=== PATIENT | female | born 1990 | race Caucasian/White ===

== ENCOUNTER 2017-11-18 07:28 | Emergency (ER) | payer MEDICAID, SELFPAY ==
[2017-11-18 07:33] VITALS: BP 107/73; PULSE 83; RESP 18; TEMP 36.9; O2SAT 97
--- NOTE | 2017-11-18 08:24 | ED.GENADUL_ITS ---
Disposition Clinical Impression: Abscess of right breast Disposition: HOME Instructions: Abscess (ED) Additional Instructions: Please apply warm compresses to your right breast abscess 4-5 times a day for the next 1 week. Follow-up with surgery tomorrow at 9:30a with Dr. Angel. Please take antibiotics as prescribed. Please follow-up with your primary care physician. Return to the emergency department immediately for any worsening or new concerning symptoms. Prescriptions: Cephalexin [Keflex] 500 mg PO QID #40 tab Sulfameth/Trimeth Ds [Bactrim Ds Tablet] 1 each PO BID #20 tab Referrals: Ale Gutierrez [Primary Care Provider] - Raghavendra Siddiqui DO [ [facility] STAFF PHYSICIAN] - Medical Decision Making - Medical Decision Making 26-year-old female here with recurrent breast abscess right breast, now draining. Afebrile not septic appearing. Ultrasound of the right breast was obtained and shows discrete 1 cm fluid collection with no apparent loculations. I called and spoke with Dr. Escalera who recommends no further acute intervention given currently draining but will see the patient tomorrow in clinic at 930. Plan to start bactrim and keflex. History of Present Illness - General Chief complaint: RashLesion Stated complaint: ABSCESS/RECHECK Time Seen by Provider: 11/18/17 07:30 Source: patient, RN notes reviewed Mode of arrival: ambulatory Limitations: no limitations - History of Present Illness Initial comments: 26-year-old female with history of breast abscess in the past treated with incision and drainage and antibiotics, presents with recurrent breast abscess. Patient notes swelling and pain worsening since yesterday, localized to right breast. Pain is moderate to severe and worse on palpation. Area is red and inflamed. No drainage. No associated fever. Patient has history of remote IV drug use, last use 6 months ago. - Related Data Methadone Liquid [Dolophine Liquid] 122 mg PO DAILY #0 07/31/17 Cephalexin [Keflex] 500 mg PO QID #40 tab 11/18/17 Sulfameth/Trimeth Ds [Bactrim Ds Tablet] 1 each PO BID #20 tab 11/18/17 Allergies Allergy/AdvReac Type Severity Reaction Status Date / Time No Known Allergies Allergy Unverified 11/18/17 07:37 Review of Systems Constitutional: denies: chills, fever Skin: as per HPI Past Medical History - Past Medical History Medical history: no medical history Positive history of IV drug use. Patient is now on methadone. - Social History Alcohol use: none Drug use: marijuana, IVDA (Heroin-currently on methadone) General Exam - General Limitations: no limitations General appearance: alert, in no apparent distress - Eye Eye exam: Absent: scleral icterus, conjunctival injection - ENT ENT exam: Present: mucous membranes moist - Respiratory Respiratory exam: Present: normal lung sounds bilaterally. Absent: respiratory distress, wheezes, rales, rhonchi - Cardiovascular Cardiovascular Exam: Present: regular rate, normal rhythm, normal heart sounds - Neurological Exam Neurological exam: Present: alert. Absent: altered - Psychiatric Psychiatric exam: Present: normal affect - Skin Skin exam: Present: warm, dry, other (Right breast with abscess left upper periareolar at 2:00 with redness and fluctuance, no drainage, nipple appears normal with no drainage) Course Vital Signs - 24 hr 08/28/18 07:33 Temperature 36.9 C Pulse 83 Respiratory 18 Rate Blood Pressure 107/73 Pulse Oximetry 97
--- NOTE | 2017-11-18 08:31 | DI.REPORT_ITS ---
SYMPTOM/DIAGNOSIS: ABSCESS RIGHT BREAST ULTRASOUND: The upper outer quadrant of the right breast was evaluated sonographically. There is a small subcutaneous fluid collection measuring approximately 1 cm. in maximum diameter suspicious for an abscess given the patient's clinical history. There does appear to be thickening of the subcutaneous soft tissues in this region. IMPRESSION: 1 cm. subcutaneous fluid collection at the 1 o'clock position of the right breast corresponding to the area of breast drainage suspicious for a right breast abscess. The findings were discussed with Dr Danis Muhammad of the ER on the date of the examination.
--- NOTE | 2017-11-18 09:25 | NUR.NOTE ---
pt states that she will not go to F/U appt with surgeon tomorrow am and requested phone number to schedule her own appt which she was given. also reports that she probably can't get her antbx until friday- explained the importance of starting antibx immediately - pt became agitated and reports that she will try to wait for care management to come to assist her with obtaining her medications. Nursing Note:
--- NOTE | 2017-11-18 10:39 | PDOC.ERCMPRO ---
Care Management Progress Note 11/18-Estefania presents to the ED today for cellulitis in her breast. Dr. Troy Muhammad has ordered antibiotics. Estefania states she can not afford to pay for the antibiotics because she does not get paid till Friday. Met with Estefania to discuss if any family members could help her with the Medicaid copays, $2-3. Estefania stated no. Discussed with Estefania that I could get the antibiotics paid for at [facility] in [facility]. Estefania stated that could not happen because she uses [facility] and has no way to get there. Explained that we could send the scripts to [facility] and that the copays would be taken care of. Asked Estefania how she was getting home from the ED and she stated that a friend was coming to pick her up. Asked if the friend could take her to [facility] to get the prescriptions but she said, No, my friend doesn't have a license and I am not asking her to drive into town! Explained to Estefania that this was all we had to offer for assistance. 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 Dr. Tiffanie Muhammad and Lauren MOREIRA aware of the above.
--- NOTE | 2017-11-18 10:43 | CMPROGNOTE_ITS ---
Care Management Progress Note 11/18-Estefania presents to the ED today for cellulitis in her breast. Dr. Troy Muhammad has ordered antibiotics. Estefania states she can not afford to pay for the antibiotics because she does not get paid till Friday. Met with Estefania to discuss if any family members could help her with the Medicaid copays, $2-3. Estefania stated no. Discussed with Estefania that I could get the antibiotics paid for at [facility] in [facility]. Estefania stated that could not happen because she uses [facility] and has no way to get there. Explained that we could send the scripts to [facility] and that the copays would be taken care of. Asked Estefania how she was getting home from the ED and she stated that a friend was coming to pick her up. Asked if the friend could take her to [facility] to get the prescriptions but she said, No, my friend doesn't have a license and I am not asking her to drive into town! Explained to Estefania that this was all we had to offer for assistance. 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 Dr. Tiffanie Muhammad and Lauren MOREIRA aware of the above.
== END 2017-11-18 09:34 | disposition home or self-care (01) ==
PROVIDERS: Emergency Provider Student in an Organized Health Care Education/Training Program; PCP Nurse Practitioner Family
DX: N61.1 Abscess of the breast and nipple (principal)
CPT/HCPCS: 76642; 99284; 87070; 87205

== ENCOUNTER 2018-07-26 10:09 | Emergency (ER) | payer MEDICAID, SELFPAY ==
--- NOTE | 2018-07-26 10:25 | NUR.NOTE ---
pt has two primary complaints 1 the fell 5 days ago on her right bryson 2 days later pain notably increases as well as redness whole calf in now as stated by pt tight, red and painful to touch. secondary complain pt has infection on right breast for over a year pt states that she was sopossed to be on antibiotics however does not have a PCP and has no way to get the antibiotics she thins its a form of staff but i know its not MRSA as it has nessa tested several times
[2018-07-26 10:30] VITALS: BP 146/80; PULSE 77; RESP 18; TEMP 36.8; O2SAT 94
--- NOTE | 2018-07-26 11:03 | DI.RAD_ITS ---
SYMPTOM/DIAGNOSIS: TRAUMA, PAIN LEFT LEG: Three views were obtained. No fracture is seen.
--- NOTE | 2018-07-26 11:09 | ED.GENADUL_ITS ---
Discharge Plan Disposition Patient Disposition: HOME Condition: Fair Discharge Details Chief Complaint: Orthopedic Clinical Impression: Contusion of left lower arm, Open wound of right breast Primary Care Provider: Ale Gutierrez ED Provider: Nathalia Hilliard Home Meds and New Rx's Prescriptions: New sulfamethoxazole-trimethoprim [Bactrim DS] 800-160 mg tablet 2 tab PO BID Qty: 20 RF: 0 Continued methadone 10 MG/ML concentrate 122 mg PO DAILY Qty: 0 RF: 0 Discharge Instructions Instructions: Chronic Wound Care (ED), Contusion in Adults (ED), Abscess (ED) Additional Instructions: Encourage rest, ice, elevation of your left lower extremity. Please continue with Dionicio wrap to help with swelling. Tylenol and ibuprofen as needed for discomfort. In regard to the right breast wound, please take the antibiotics as prescribed. Please follow-up with general surgery, you may call tomorrow to schedule appointment. If you develop fever/chills, spreading of the redness, increased pain or other new/worsening symptoms please seek care urgently once again Referrals: Ale Gutierrez [Primary Care Provider] - Medical Decision Making Patient is a 27-year-old female presenting today with chief complaint of left lower extremity pain as well as right breast infection. She reports that she fell yesterday and that her right leg struck against her left leg during the fall. Since that time she had pain on the anterior medial aspect of the calf. No posterior pain. Has noted the skin to be swollen and slightly discolored. She denies any fevers or chills. No chest pain or shortness of breath. Patient has been ambulating with an antalgic gait since the fall. She has swelling and ecchymosis, no palpable cord, negative Homans, pain is alng the anterior aspect of the LE. Given level of discomfort, will obtain XR to evaluate for any bony abnoramlity. Denies other injury the time. Regarding the right breast, she has had an open wound for the past year after putting herself with a pipe and she put on her shirt. States that the area has been intermittently erythematous and draining. States that it has been status quo for the past month. Was evaluated by a physician in long-term, patient was recently incarcerated, who advised antibiotics. She reports she has not been on antibiotics for the past month. She denies any fevers or chills. Has noted a circumference of the erythematous area around chronic wound. Patient was seen here last fall for this wound and was diagnosed with a breast abscess on ultrasound. Plan to treat with antibiotics, with the chronicity of the wound, I am concerned for possible fistula formation, will refer to general surgeon. She will call tomorrow to schedule appointment. Tib/fib xr reviewed by radiologist: FINDINGS: Bones/joints: There is no evidence of acute fracture. There is no evidence of malalignment or dislocation. Old avulsion fracture off navicular. Soft tissues: Normal. IMPRESSION: 1. There is no evidence of acute fracture. 2. There is no evidence of malalignment or dislocation Discussed findings with the patient and her significant other. Encourage rest, ice, elevation. Tylenol and ibuprofen as needed for discomfort. Patient will be fitted with an Dionicio wrap to help with swelling. In regard to the right breast chronic wound, plan to treat with Keflex for surrounding erythema and increased pain. However, I feel patient needs assessment and treatment of general surgery. I placed her on list for referral advised that she call in the morning to schedule appointment. We discussed new/worsening symptoms of both breast and LE when to seek care urgently once again. All her questions and concerns were addressed and she is in agreement with this plan. Also advised f/u with PCP in the next two weeks for reevaluation of LLE. HPI General Mode of arrival: ambulatory . Date/Time Provider Initiated Documentation: 07/26/18 10:50 . Limitations to Documentation: no limitations . Information obtained by: patient, family (significant other) and RN notes reviewed . HPI Narrative: Patient is a 27-year-old female, accompanied by significant other, with chief complaint of LLE pain after fall yesterday. Also has chronic right breast wound that has been intermittently expressing discharge for over a year. She reports that her primary complaint today is that of the left lower extremity, concern for tibia fracture given her discomfort. Ambulating with an antalgic gait. She reports that she has been icing. Related Data Home Medications Medication Instructions Recorded Confirmed methadone 122 mg PO DAILY #0 07/31/17 07/26/18 sulfamethoxazole-trimethoprim 2 tab PO BID #20 tab 07/26/18 [Bactrim DS] Previous Rx's Medication Instructions Recorded methadone 122 mg PO DAILY #0 05/10/18 sulfamethoxazole-trimethoprim 2 tab PO BID #20 tab 07/26/18 [Bactrim DS] Allergies Allergy/AdvReac Type Severity Reaction Status Date / Time No Known Allergies Allergy Unverified 07/26/18 10:31 General Stated Complaint: Orthopedic VASYL: 4 Review of Systems Constitutional Reports as per HPI, Denies chills, Denies fever(s), Denies headache(s) and Denies weakness ENT Denies headache(s) Cardiovascular Reports as per HPI, Denies chest pain, Denies chest pain at rest, Denies dyspnea and Denies dyspnea on exertion Respiratory Reports as per HPI, Denies cough, Denies dyspnea and Denies dyspnea on exertion Musculoskeletal Reports as per HPI and Denies tingling Integumentary/Breasts Reports as per HPI, Reports breast swelling, Reports breast skin changes, Reports breast pain and Reports wounds Neurologic Reports as per HPI, Denies headache(s), Denies tingling, Denies paresthesias and Denies weakness PFS Social History Smoking/Tobacco Use Status: Current every day Tobacco Type: cigarettes Alcohol Intake: current Alcohol Intake frequency: holidays/special occasions only Drug use: Current Sobriety Do you feel safe at home: Yes Do you feel safe in your relationship?: Yes Exam Const General: cooperative, healthy appearing, comfortable, no acute distress, well developed and well groomed Nutritional Appearance: average body habitus and well nourished Orientation: alert and awake Chest Breast palpation: normal palpation of the axillae, no axillary lymphadenopathy and abnormal palpation of the breast (firm area under erythema, serosanginous discharge) Chest/axillae images: 1. area of erythema Resp Effort & Inspection: normal respiratory effort, able to speak in complete sentences and no respiratory distress Auscultation: clear to auscultation bilaterally Cardio Rate: regular rate Rhythm: regular rhythm Heart Sounds: S1 normal and S2 normal Neuro General: alert and awake Cognition: normal cognition Speech: speech normal Gait: antalgic Motor: muscle tone normal throughout Sensory Exam: no sensory deficits noted Extrem General: full ROM, no joint enlargement, no pedal edema, no calf tenderness and abnormal gait Left lower extremity: full ROM, normal capillary refill and no joint enlargement; abnormal to inspection (swelling and discomfort anteriormedial calf) and no edema Upper/lower leg/hip images: 1. area of pain and swelling Psych Appearance: grossly normal and well kempt Mental Status: mental status grossly normal Speech and Movement: speech and movement normal Course Vital Signs Temperature 36.8 C 07/26/18 10:30 Pulse 77 07/26/18 10:30 Respiratory Rate 18 07/26/18 10:30 Blood Pressure 146/80 H 07/26/18 10:30 Pulse Oximetry 94 L 07/26/18 10:30 Temperature 36.8 C 07/26/18 10:30 Temperature Source Skin 07/26/18 10:30 Pulse 77 07/26/18 10:30 Respiratory Rate 18 07/26/18 10:30 Respiratory Effort 07/26/18 10:52 Blood Pressure 146/80 H 07/26/18 10:30 Blood Pressure Position Sitting 07/26/18 10:30 Pulse Oximetry 94 L 07/26/18 10:30 Oxygen Delivery Method Room Air 07/26/18 10:30 Oxygen Flow Rate 0 07/26/18 10:30 Pain Level 5 07/26/18 10:30
--- NOTE | 2018-07-26 12:11 | DI.VRAD_ITS ---
EXAM: XR Left Tibia and Fibula, 2 Views EXAM DATE/TIME: 07/26/2018 11:05 AM CLINICAL HISTORY: 27 years old, female; Signs and symptoms; Other: Trauma; Additional info: Trauma, pain on the medial lower leg per PT TECHNIQUE: Imaging protocol: XR Left tibia and fibula. Views: 2 views COMPARISON: No relevant prior studies available. FINDINGS: Bones/joints: There is no evidence of acute fracture. There is no evidence of malalignment or dislocation. Old avulsion fracture off navicular. Soft tissues: Normal. IMPRESSION: 1. There is no evidence of acute fracture. 2. There is no evidence of malalignment or dislocation. Dictated and Authenticated by: Tracey Gutierres MD. Ordering:THUAN Sloan MD
--- NOTE | 2018-07-26 12:44 | NUR.NOTE ---
Nursing Note: Referral faxed to General Surgery for would on breast for follow up. Sharon Iglesias.
[2018-07-26 17:12] VITALS: BP 146/80; PULSE 77; RESP 18; TEMP 36.8; O2SAT 94
--- NOTE | 2018-07-26 17:29 | NUR.NOTE ---
Nursing Note: Referral faxed to PCP for follow up. Sharon Iglesias.
--- NOTE | 2018-07-27 09:27 | PDOC.ERCMPRO ---
Care Management Progress Note 07/27-Nathalia TAPIA requested assistance with a general surgery f/u in 1-2 weeks for wound right breast. JANIS Herrera, faxed referral to [facility] General Surgery on 07/26.
== END 2018-07-26 12:37 | disposition home or self-care (01) ==
PROVIDERS: Emergency Provider Physician Assistant; PCP Nurse Practitioner Family
DX: S80.12XA Contusion of left lower leg, initial encounter (principal); W18.39XA Other fall on same level, initial encounter; S21.001A Unspecified open wound of right breast, initial encounter; W22.8XXA Striking against or struck by other objects, initial encounter
CPT/HCPCS: 99283; 73590

== ENCOUNTER 2018-08-03 05:41 | Emergency (ER) | payer MEDICAID, SELFPAY ==
[2018-08-03 05:45] VITALS: BP 127/101; PULSE 111; RESP 20; TEMP 37.1; O2SAT 96
--- NOTE | 2018-08-03 06:03 | ED.GENADUL_ITS ---
Discharge Plan Disposition Patient Disposition: HOME Condition: Improving Discharge Details Chief Complaint: Orthopedic Clinical Impression: Cellulitis of right leg Primary Care Provider: Ale Gutierrez ED Provider: Brown Easley Home Meds and New Rx's Prescriptions: New cephalexin 500 mg tablet 500 mg PO TID Qty: 20 RF: 0 ibuprofen 800 mg tablet 800 mg PO TID PRN (Reason: pain) Qty: 20 RF: 0 Continued methadone 10 MG/ML concentrate 122 mg PO DAILY Qty: 0 RF: 0 sulfamethoxazole-trimethoprim [Bactrim DS] 800-160 mg tablet 2 tab PO BID Qty: 20 RF: 0 ibuprofen 200 mg Capsule 600 mg PO PRN PRNRF: 0 Discharge Instructions Instructions: Cellulitis (ED) Additional Instructions: As we discussed you should return today for an ultrasound that I have ordered. You will subsequently be seen in the ER for recheck. Continue your Bactrim and finish the prescription, begin Keflex for 1 week. Ibuprofen as needed for pain. Elevate the leg above the level heart to reduce pain and swelling Medical Decision Making 27-year-old female who was seen on July 26 for right lower extremity discomfort. She had x-ray at that time that was unremarkable was placed on Bactrim for a infection of the right breast. She now has persistent right lower extremity erythema and swelling over days time. This appears most consistent with cellulitis, but will exclude underlying DVT with ultrasound. Patient states that she needs to leave at this time and will return for ultrasound which I will order. I will place her on Keflex for 1 week and she will finish the currently prescribed Bactrim. HPI General Mode of arrival: ambulatory . Date/Time Provider Initiated Documentation: 08/03/18 05:44 . Limitations to Documentation: no limitations . Information obtained by: patient . History of Present Illness 27 year old F presents to the emergency department with the chief complaint of Right lower extremity swelling and erythema, described as moderate, Quality is described as dull and constant, and is localized to the right and lower extremity. Patient reports no radiation. Patient started experiencing this day(s) and it has been constant. Rest improves symptom(s), Movement worsens symptoms . Patient notes no other symptoms.. Patient did receive the following treatments prior to arrival, none and other (On Bactrim for 1 week) Related Data Home Medications Medication Instructions Recorded Confirmed methadone 122 mg PO DAILY #0 07/31/17 08/03/18 sulfamethoxazole-trimethoprim 2 tab PO BID #20 tab 07/26/18 08/03/18 [Bactrim DS] cephalexin 500 mg PO TID #20 tab 08/03/18 ibuprofen 600 mg PO PRN PRN 08/03/18 08/03/18 ibuprofen 800 mg PO TID PRN #20 tab 08/03/18 Previous Rx's Medication Instructions Recorded methadone 122 mg PO DAILY #0 07/31/17 sulfamethoxazole-trimethoprim 2 tab PO BID #20 tab 07/26/18 [Bactrim DS] cephalexin 500 mg PO TID #20 tab 08/03/18 ibuprofen 800 mg PO TID PRN #20 tab 08/03/18 Allergies Allergy/AdvReac Type Severity Reaction Status Date / Time No Known Allergies Allergy Unverified 08/03/18 05:50 General Stated Complaint: Orthopedic VASYL: 4 Review of Systems Review of Systems 8 systems reviewed and otherwise negative. No chest pain or palpitation PFSH Social History Smoking/Tobacco Use Status: Current every day Tobacco Type: cigarettes Alcohol Intake: current Alcohol Intake frequency: holidays/special occasions only Drug use: Current Sobriety Substance use type: does not use Do you feel safe at home: Yes Do you feel safe in your relationship?: Yes Exam Narrative Exam Narrative: GEN: awake, alert, oriented 3. Pleasant, well groomed, interactive. HEAD: Normocephalic, atraumatic ENT: Mucous membranes moist, oropharynx unremarkable, External ear exam unremarkable EYES: PERRL, EOMI NECK: Full ROM, no RIGOBERTO, no menigismus CHEST/RESP: Nontender, clear to auscultation bilateral, no wheeze/rhonchi/rales CARDIOVASCULAR: RRR, no murmur, rub buzz. 2+ Rad pulse bilateral EXT: Full ROM, right lower extremity has 2+ pretibial edema through the ankle. There is right pretibial erythema that blanches to the touch. Palpable DP bilaterally Neuro: Grossly normal neurologic exam, conversant, interactive. Psych: Speech fluent, thoughts congruent, affect normal Course Vital Signs Temperature 37.1 C 08/03/18 05:45 Pulse 111 H 08/03/18 05:45 Respiratory Rate 20 08/03/18 05:45 Blood Pressure 127/101 H 08/03/18 05:45 Pulse Oximetry 96 08/03/18 05:45 Temperature 37.1 C 08/03/18 05:45 Temperature Source Temporal Artery Scan 08/03/18 05:45 Pulse 111 H 08/03/18 05:45 Respiratory Rate 20 08/03/18 05:45 Respiratory Effort Non-Labored 08/03/18 05:45 Blood Pressure 127/101 H 08/03/18 05:45 Blood Pressure Position Supine 08/03/18 05:45 Pulse Oximetry 96 08/03/18 05:45 Oxygen Delivery Method Room Air 08/03/18 05:45 Oxygen Flow Rate 0 08/03/18 05:45 Pain Level 8 08/03/18 05:52
[2018-08-03] MEDS: Cephalexin 500 MG CAP PO (06:06)
[2018-08-03] MEDS: Ibuprofen 800 MG TAB (06:07)
== END 2018-08-03 06:21 | disposition home or self-care (01) ==
LOC: ER 06:03
PROVIDERS: Emergency Provider Emergency Medicine; PCP Nurse Practitioner Family
DX: L03.115 Cellulitis of right lower limb (principal); S80.12XA Contusion of left lower leg, initial encounter; W18.39XA Other fall on same level, initial encounter; R22.42 Localized swelling, mass and lump, left lower limb; R60.0 Localized edema; R59.0 Localized enlarged lymph nodes; L03.116 Cellulitis of left lower limb; F11.10 Opioid abuse, uncomplicated
CPT/HCPCS: 99283; 93971

== ENCOUNTER 2018-08-03 09:43 | Outpatient (CLI) | payer MEDICAID, SELFPAY ==
--- NOTE | 2018-08-03 13:00 | DI.US_ITS ---
SYMPTOM/DIAGNOSIS: LT LEG SWELLING LEFT LOWER EXTREMITY ULTRASOUND: The common femoral vein through calf veins are freely compressible. No thrombus is identified. Doppler venous wave form augments normally. The saphenous vein also appears free of thrombus. Swelling and edema is noted in the lower leg. No Thomas's cyst or localized fluid collection is seen. Reactive lymph nodes are seen in the inguinal region. IMPRESSION: Lower leg edema. No evidence of DVT.
== END 2018-08-03 10:03 ==
PROVIDERS: PCP Nurse Practitioner Family; Visit Provider Emergency Medicine
DX: R22.42 Localized swelling, mass and lump, left lower limb (principal); R60.0 Localized edema; R59.0 Localized enlarged lymph nodes
CPT/HCPCS: 93971

== ENCOUNTER 2018-08-03 14:03 | Emergency (ER) | payer MEDICAID, SELFPAY ==
[2018-08-03 14:23] VITALS: BP 111/84; PULSE 102; RESP 16; TEMP 36.6; O2SAT 94
--- NOTE | 2018-08-03 15:15 | ED.GENADUL_ITS ---
Discharge Plan Discharge Details Chief Complaint: Recheck Primary Care Provider: Ale Gutierrez ED Provider: Ted Chan Home Meds and New Rx's Prescriptions: No Action methadone 10 MG/ML concentrate 122 mg PO DAILY Qty: 0 RF: 0 sulfamethoxazole-trimethoprim [Bactrim DS] 800-160 mg tablet 2 tab PO BID Qty: 20 RF: 0 ibuprofen 200 mg Capsule 600 mg PO PRN PRNRF: 0 cephalexin 500 mg tablet 500 mg PO TID Qty: 20 RF: 0 ibuprofen 800 mg tablet 800 mg PO TID PRN (Reason: pain) Qty: 20 RF: 0 Medical Decision Making 27-year-old female with cellulitis DVT exam negative patient on Bactrim Will Be Adding Keflex Today Wound Traced Patient to Follow-Up in ED in 3 to 4 Days for Wound Check While Trying to Establish Primary Care. Return Sooner for Fever Chills or Other Concern. Patient is not interested in any further addiction counseling today. HPI 27-year-old female past medical history of IVDU with left lower extremity swelling and redness for somewhere between 1.5 and 2 weeks patient initially started on Bactrim which there was a delay to patient starting but finally 6 days ago patient began taking the Bactrim. Patient seen last week by emergency department by Dr. Easley who advised left lower extremity duplex and adding Keflex for cellulitis patient is yet to start Keflex but returned this morning for the DVT study which was negative. Patient's boyfriend is out picking up the Keflex currently. Left lower extremity is red tender no systemic symptoms no fever no chills no shortness of breath no chest pain no trauma no knee pain no ankle pain no hip pain no back pain. General Date/Time Provider Initiated Documentation: 08/03/18 14:31 . Related Data Home Medications Medication Instructions Recorded Confirmed methadone 122 mg PO DAILY #0 07/31/17 08/03/18 sulfamethoxazole-trimethoprim 2 tab PO BID #20 tab 07/26/18 08/03/18 [Bactrim DS] cephalexin 500 mg PO TID #20 tab 08/03/18 08/03/18 ibuprofen 600 mg PO PRN PRN 08/03/18 08/03/18 ibuprofen 800 mg PO TID PRN #20 tab 08/03/18 08/03/18 Previous Rx's Medication Instructions Recorded methadone 122 mg PO DAILY #0 07/31/17 sulfamethoxazole-trimethoprim 2 tab PO BID #20 tab 07/26/18 [Bactrim DS] cephalexin 500 mg PO TID #20 tab 08/03/18 ibuprofen 800 mg PO TID PRN #20 tab 08/03/18 Allergies Allergy/AdvReac Type Severity Reaction Status Date / Time No Known Allergies Allergy Unverified 08/03/18 14:26 General Stated Complaint: Recheck VASYL: 4 Review of Systems Review of Systems All systems reviewed & are unremarkable except as noted in HPI and below PFSH Social History Smoking/Tobacco Use Status: Current every day Tobacco Type: cigarettes Alcohol Intake: current Alcohol Intake frequency: holidays/special occasions only Drug use: Current Sobriety Substance use type: does not use Do you feel safe at home: Yes Do you feel safe in your relationship?: Yes Exam Narrative Exam Narrative: Pulse oximetry reviewed by me and is normal [] Constitutional: Pt is in no acute distress. she is well appearing. she oriented to person, place, and time. Eyes: conjunctivae are normal. Pupils are equal, round, and reactive to light. No scleral icterus. extraocular muscles are intact Ears/Nose/Mouth/Throat: mucus membranes are moist. Musculoskeletal: neck is supple. normal range of motion in all extremities. Cardiovascular: Normal rate and rhythm. No lower extremity edema [] Respiratory: effort is normal . pt exhibits no stridor or respiratory distress. [] GastrointestinaI: abdomen soft, +BS, nontender, -rebound, -guarding. Neurological: alert and oriented to person, place, and time. he has normal strength, no tremor. Skin: Skin is warm and dry. he is not diaphoretic. Distal perfusion in tact, warm extremities, cap refill ? 2 seconds. 10 cm oval diameter area of erythema and warmth without induration or fluctuance on left anterior bryson. No skin breakdown no purulent drainage mild warmth Hem/Lymph/Imm: No cervical LAD, no goiter, no conjunctival pallor Psych: normal mood and affect. behavior is normal Triage and nurse notes reviewed.[] Course Vital Signs Temperature 36.6 C 08/03/18 14:23 Pulse 102 H 08/03/18 14:23 Respiratory Rate 16 08/03/18 14:23 Blood Pressure 111/84 08/03/18 14:23 Pulse Oximetry 94 L 08/03/18 14:23 Temperature 36.6 C 08/03/18 14:23 Temperature Source Skin 08/03/18 14:23 Pulse 102 H 08/03/18 14:23 Respiratory Rate 16 08/03/18 14:23 Respiratory Effort Non-Labored 08/03/18 14:23 Blood Pressure 111/84 08/03/18 14:23 Blood Pressure Position Sitting 08/03/18 14:23 Pulse Oximetry 94 L 08/03/18 14:23 Oxygen Delivery Method Room Air 08/03/18 14:23 Oxygen Flow Rate 0 08/03/18 14:23 Pain Level 7 08/03/18 14:23
== END 2018-08-03 15:29 | disposition home or self-care (01) ==
PROVIDERS: Emergency Provider Emergency Medicine; PCP Nurse Practitioner Family
DX: L03.116 Cellulitis of left lower limb (principal); F11.10 Opioid abuse, uncomplicated
CPT/HCPCS: 99283

== ENCOUNTER 2018-08-10 10:02 | Emergency (ER) | payer MEDICAID, SELFPAY ==
[2018-08-10 10:11] VITALS: BP 130/88; PULSE 108; RESP 16; TEMP 36.8
--- NOTE | 2018-08-10 10:45 | W.ED.GENAD ---
Discharge Plan Disposition Patient Disposition: HOME Condition: Stable Discharge Details Chief Complaint: Cellulitis Clinical Impression: Cellulitis Primary Care Provider: Ale Gutierrez ED Provider: Isha Muhammad Home Meds and New Rx's Prescriptions: New clindamycin HCl 150 mg capsule 450 mg PO QID Qty: 120 RF: 0 ibuprofen 600 mg tablet 600 mg PO TID Qty: 30 RF: 0 Continued methadone 10 MG/ML concentrate 122 mg PO DAILY Qty: 0 RF: 0 ibuprofen 200 mg Capsule 600 mg PO PRN PRNRF: 0 Discontinued sulfamethoxazole-trimethoprim [Bactrim DS] 800-160 mg tablet 2 tab PO BID Qty: 20 RF: 0 cephalexin 500 mg tablet 500 mg PO TID Qty: 20 RF: 0 Discharge Instructions Instructions: Cellulitis (ED) Additional Instructions: Please return immediately to the emergency department if you develop any new or worsening symptoms or if you become otherwise concerned. It is extremely important to make an appointment to be seen soon as possible and follow-up this visit by her primary care doctor. Please begin taking over the counter probiotics per package instructions. Referrals: Ale Gutierrez [Primary Care Provider] - Medical Decision Making Estefania Baer is a 27-year-old woman with history of opiate drug abuse on methadone presenting to the emergency department with improved but continued leg pain and redness after being diagnosed with cellulitis and placed on Bactrim from 5/5 and then Keflex 5/13. On exam patient is well and nontoxic appearing. She has no posterior calf tenderness. She has non-circumferential erythema of the left lower leg, improved from skin marking lines placed 5/13 still present. DP pulses intact and symmetric. 2+ edema of the left lower leg compared to the right, which patient reports is improved. Concern for slowly resolving cellulitis, possible development of DVT complicating course. Plan for screening ultrasound, will continue abx. Exam/history is not consistent with sepsis, myositis, abscess, PE. DVT study neg. Given overall improvement in appearance of cellulite and Pt's symptoms, admission not indicated. Plan to continue PO abx, rx clinda. Skin marked. I had a lengthy discussion with the Pt re: RTED precautions and importance of outpt f/u this week with PCP. Pt verbalized understanding of the plan and was amenable. Pt was discharged to home with clear plan for outpt f/u. All questions were answered. Medical Records Medical records reviewed: Yes I reviewed the patient's medical records. Imaging Data Radiologic Study: Attestation: I personally reviewed and interpreted this imaging study as follows: Radiologist's impression: LEFT LOWER EXTREMITY ULTRASOUND: There is lower leg edema. There is a reactive lymph node in the left groin region. The femoral and popliteal veins and visualized portions of the calf veins are freely compressible. No thrombus is visible. The doppler venous wave form augments normally. No pastor's cyst or hematoma is seen. IMPRESSION: Left lower extremity cellulitis. No evidence of DVT. HPI General Mode of arrival: ambulatory. Date/Time Provider Initiated Documentation: 08/10/18 10:14. Limitations to Documentation: no limitations. Information obtained by: patient, RN notes reviewed and old records reviewed. HPI Narrative: Estefania Baer is a 27 y/o woman with history of opiate drug use currently on methadone recently diagnosed with cellulitis presenting to the emergency department with continued skin changes. Record review shows that patient was seen here 07/26 for lower leg cellulitis, was prescribed 10 days of Bactrim at that time. Patient reports that she took all of her Bactrim. She presented back to the emergency department 08/03 for continued leg pain and skin redness. She had ultrasound to rule out DVT at the time which was negative. She was given 7 days of Keflex. Patient reports that she took her last dose of medication this morning. She reports that she presented to the emergency department because her rash has vastly improved since being on antibiotics, but has not resolved. She has mild pain in her left leg that is also significantly improved from when she was seen here 08/03. She denies any systemic symptoms: No fever, vomiting, diarrhea, chest pain, shortness of breath, other pain, other rash. Has been eating and drinking as usual. Related Data Home Medications Medication Instructions Recorded Confirmed methadone 122 mg PO DAILY #0 07/31/17 08/10/18 ibuprofen 600 mg PO PRN PRN 08/03/18 08/10/18 clindamycin HCl 450 mg PO QID #120 cap 08/10/18 ibuprofen 600 mg PO TID #30 tab 08/10/18 Previous Rx's Medication Instructions Recorded methadone 122 mg PO DAILY #0 07/31/17 clindamycin HCl 450 mg PO QID #120 cap 08/10/18 ibuprofen 600 mg PO TID #30 tab 08/10/18 Allergies Allergy/AdvReac Type Severity Reaction Status Date / Time No Known Allergies Allergy Unverified 08/10/18 10:18 General Stated Complaint: Cellulitis VASYL: 4 Review of Systems Review of Systems Constitutional: denies fevers Eyes: denies eye pain ENT: denies facial pain, dental pain, sore throat Cardiovascular: denies chest pain Respiratory: denies SOB, cough GI: denies abdominal pain, vomiting, diarrhea : denies flank pain MSK: denies back pain, neck pain, arthralgias Skin: reports rash, edema LLE Neuro: denies headaches, numbness, weakness [facility] Medical History Cellulitis and abscess of left leg (Acute) Cellulitis of right breast (Acute) Dental abscess (Chronic) Methadone dependence (Chronic) Tobacco abuse (Chronic) History of intravenous drug abuse (Inactive) Social History Smoking/Tobacco Use Status: Current every day Tobacco Type: cigarettes Alcohol Intake: current Alcohol Intake frequency: holidays/special occasions only Drug use: Current Sobriety Substance use type: does not use Do you feel safe at home: Yes Do you feel safe in your relationship?: Yes Exam Narrative Exam Narrative: Constitutional: well and [id number], pleasant, conversing normally HENT: head atraumatic/normocephalic/normal inspection, mucous membranes moist Eyes: conjunctiva normal, sclera normal, pupils 3mm b/l Neck: no stridor, normal ROM, trachea midline Chest: normal inspection Resp: normal work of breathing, LCTAB Cardio: normal rate (96), normal rhythm, no murmur appreciated Skin: warm, dry, normal color, no rash Neuro: alert, not altered, grossly non-focal, normal tone Ext: leg lower leg with anterior erythema, non-circumferential, no infuration or fluctuance, decreased from prior skin marking. DP pulses intact and symmetric. 2+ pitting edema LLE, no edema RLE. Compartments soft. Psych: normal mood, normal affect, normal behavior Course Vital Signs Temperature 36.8 C 08/10/18 10:11 Pulse 108 H 08/10/18 10:11 Respiratory Rate 16 08/10/18 10:11 Blood Pressure 130/88 08/10/18 10:11 Temperature 36.8 C 08/10/18 10:11 Temperature Source Temporal Artery Scan 08/10/18 10:11 Pulse 108 H 08/10/18 10:11 Respiratory Rate 16 08/10/18 10:11 Respiratory Effort 08/10/18 10:15 Blood Pressure 130/88 08/10/18 10:11 Blood Pressure Position Sitting 08/10/18 10:11 Oxygen Delivery Method Room Air 08/10/18 10:11 Oxygen Flow Rate 0 08/10/18 10:11 Pain Level 3 08/10/18 10:11
--- NOTE | 2018-08-10 11:03 | ED.GENADUL_ITS ---
Discharge Plan Disposition Patient Disposition: HOME Condition: Stable Discharge Details Chief Complaint: Cellulitis Clinical Impression: Cellulitis Primary Care Provider: Ale Gutierrez ED Provider: Isha Muhammad Home Meds and New Rx's Prescriptions: New clindamycin HCl 150 mg capsule 450 mg PO QID Qty: 120 RF: 0 ibuprofen 600 mg tablet 600 mg PO TID Qty: 30 RF: 0 Continued methadone 10 MG/ML concentrate 122 mg PO DAILY Qty: 0 RF: 0 ibuprofen 200 mg Capsule 600 mg PO PRN PRNRF: 0 Discontinued sulfamethoxazole-trimethoprim [Bactrim DS] 800-160 mg tablet 2 tab PO BID Qty: 20 RF: 0 cephalexin 500 mg tablet 500 mg PO TID Qty: 20 RF: 0 Discharge Instructions Instructions: Cellulitis (ED) Additional Instructions: Please return immediately to the emergency department if you develop any new or worsening symptoms or if you become otherwise concerned. It is extremely important to make an appointment to be seen soon as possible and follow-up this visit by her primary care doctor. Please begin taking over the counter probiotics per package instructions. Referrals: Ale Gutierrez [Primary Care Provider] - Medical Decision Making Estefania Baer is a 27-year-old woman with history of opiate drug abuse on methadone presenting to the emergency department with improved but continued leg pain and redness after being diagnosed with cellulitis and placed on Bactrim from 5/5 and then Keflex 5/13. On exam patient is well and nontoxic appearing. She has no posterior calf tenderness. She has non-circumferential erythema of the left lower leg, improved from skin marking lines placed 5/13 still present. DP pulses intact and symmetric. 2+ edema of the left lower leg compared to the right, which patient reports is improved. Concern for slowly resolving cellulitis, possible development of DVT complicating course. Plan for screening ultrasound, will continue abx. Exam/history is not consistent with sepsis, myositis, abscess, PE. DVT study neg. Given overall improvement in appearance of cellulite and Pt's symptoms, admission not indicated. Plan to continue PO abx, rx clinda. Skin marked. I had a lengthy discussion with the Pt re: RTED precautions and importance of outpt f/u this week with PCP. Pt verbalized understanding of the plan and was amenable. Pt was discharged to home with clear plan for outpt f/u. All questions were answered. Medical Records Medical records reviewed: Yes I reviewed the patient's medical records. Imaging Data Radiologic Study: Attestation: I personally reviewed and interpreted this imaging study as follows: Radiologist's impression: LEFT LOWER EXTREMITY ULTRASOUND: There is lower leg edema. There is a reactive lymph node in the left groin region. The femoral and popliteal veins and visualized portions of the calf veins are freely compressible. No thrombus is visible. The doppler venous wave form augments normally. No pastor's cyst or hematoma is seen. IMPRESSION: Left lower extremity cellulitis. No evidence of DVT. HPI General Mode of arrival: ambulatory . Date/Time Provider Initiated Documentation: 08/10/18 10:14 . Limitations to Documentation: no limitations . Information obtained by: patient, RN notes reviewed and old records reviewed . HPI Narrative: Estefania Baer is a 27 y/o woman with history of opiate drug use currently on methadone recently diagnosed with cellulitis presenting to the emergency department with continued skin changes. Record review shows that patient was seen here 07/26 for lower leg cellulitis, was prescribed 10 days of Bactrim at that time. Patient reports that she took all of her Bactrim. She presented back to the emergency department 08/03 for continued leg pain and skin redness. She had ultrasound to rule out DVT at the time which was negative. She was given 7 days of Keflex. Patient reports that she took her last dose of medication this morning. She reports that she presented to the emergency department because her rash has vastly improved since being on antibiotics, but has not resolved. She has mild pain in her left leg that is also significantly improved from when she was seen here 08/03. She denies any systemic symptoms: No fever, vomiting, diarrhea, chest pain, shortness of breath, other pain, other rash. Has been eating and drinking as usual. Related Data Home Medications Medication Instructions Recorded Confirmed methadone 122 mg PO DAILY #0 07/31/17 08/10/18 ibuprofen 600 mg PO PRN PRN 08/03/18 08/10/18 clindamycin HCl 450 mg PO QID #120 cap 08/10/18 ibuprofen 600 mg PO TID #30 tab 08/10/18 Previous Rx's Medication Instructions Recorded methadone 122 mg PO DAILY #0 07/31/17 clindamycin HCl 450 mg PO QID #120 cap 08/10/18 ibuprofen 600 mg PO TID #30 tab 08/10/18 Allergies Allergy/AdvReac Type Severity Reaction Status Date / Time No Known Allergies Allergy Unverified 08/10/18 10:18 General Stated Complaint: Cellulitis VASYL: 4 Review of Systems Review of Systems Constitutional: denies fevers Eyes: denies eye pain ENT: denies facial pain, dental pain, sore throat Cardiovascular: denies chest pain Respiratory: denies SOB, cough GI: denies abdominal pain, vomiting, diarrhea : denies flank pain MSK: denies back pain, neck pain, arthralgias Skin: reports rash, edema LLE Neuro: denies headaches, numbness, weakness [facility] Medical History Cellulitis and abscess of left leg (Acute) Cellulitis of right breast (Acute) Dental abscess (Chronic) Methadone dependence (Chronic) Tobacco abuse (Chronic) History of intravenous drug abuse (Inactive) Social History Smoking/Tobacco Use Status: Current every day Tobacco Type: cigarettes Alcohol Intake: current Alcohol Intake frequency: holidays/special occasions only Drug use: Current Sobriety Substance use type: does not use Do you feel safe at home: Yes Do you feel safe in your relationship?: Yes Exam Narrative Exam Narrative: Constitutional: well and [id number], pleasant, conversing normally HENT: head atraumatic/normocephalic/normal inspection, mucous membranes moist Eyes: conjunctiva normal, sclera normal, pupils 3mm b/l Neck: no stridor, normal ROM, trachea midline Chest: normal inspection Resp: normal work of breathing, LCTAB Cardio: normal rate (96), normal rhythm, no murmur appreciated Skin: warm, dry, normal color, no rash Neuro: alert, not altered, grossly non-focal, normal tone Ext: leg lower leg with anterior erythema, non-circumferential, no infuration or fluctuance, decreased from prior skin marking. DP pulses intact and symmetric. 2+ pitting edema LLE, no edema RLE. Compartments soft. Psych: normal mood, normal affect, normal behavior Course Vital Signs Temperature 36.8 C 08/10/18 10:11 Pulse 108 H 08/10/18 10:11 Respiratory Rate 16 08/10/18 10:11 Blood Pressure 130/88 08/10/18 10:11 Temperature 36.8 C 08/10/18 10:11 Temperature Source Temporal Artery Scan 08/10/18 10:11 Pulse 108 H 08/10/18 10:11 Respiratory Rate 16 08/10/18 10:11 Respiratory Effort 08/10/18 10:15 Blood Pressure 130/88 08/10/18 10:11 Blood Pressure Position Sitting 08/10/18 10:11 Oxygen Delivery Method Room Air 08/10/18 10:11 Oxygen Flow Rate 0 08/10/18 10:11 Pain Level 3 08/10/18 10:11
--- NOTE | 2018-08-10 11:53 | DI.US_ITS ---
SYMPTOMS/DIAGNOSIS: LT LEG CELLULITIS LEFT LOWER EXTREMITY ULTRASOUND: There is lower leg edema. There is a reactive lymph node in the left groin region. The femoral and popliteal veins and visualized portions of the calf veins are freely compressible. No thrombus is visible. The doppler venous wave form augments normally. No pastor's cyst or hematoma is seen. IMPRESSION: Left lower extremity cellulitis. No evidence of DVT.
== END 2018-08-10 13:00 | disposition home or self-care (01) ==
PROVIDERS: Emergency Provider Student in an Organized Health Care Education/Training Program; PCP Nurse Practitioner Family
DX: L03.116 Cellulitis of left lower limb (principal); R60.0 Localized edema; F11.21 Opioid dependence, in remission
CPT/HCPCS: 99284; 93971

== ENCOUNTER 2018-09-30 04:49 | Emergency (ER) | payer MEDICAID, SELFPAY ==
[2018-09-30 04:51] VITALS: BP 144/89; PULSE 101; RESP 18; TEMP 37; O2SAT 96
--- NOTE | 2018-09-30 05:00 | ED.GENADUL_ITS ---
Discharge Plan Disposition Patient Disposition: HOME Condition: Improving Discharge Details Chief Complaint: DentalOral Clinical Impression: Pain, dental Primary Care Provider: Ale Guiterrez ED Provider: Diego Kwok Home Meds and New Rx's Prescriptions: New acetaminophen [Mapap Extra Strength] 500 MG tablet 1,000 mg PO Q6H 5 Days Qty: 60 RF: 0 ibuprofen [Motrin IB] 200 MG tablet 600 mg PO Q6H 5 Days Qty: 60 RF: 0 amoxicillin-pot clavulanate [Augmentin] 875-125 mg tablet 1 tab PO BID Qty: 14 RF: 0 No Action methadone 10 MG/ML concentrate 122 mg PO DAILY Qty: 0 RF: 0 clindamycin HCl 150 mg capsule 450 mg PO QID Qty: 120 RF: 0 ibuprofen 600 mg tablet 600 mg PO TID Qty: 30 RF: 0 ibuprofen 200 mg Capsule 600 mg PO PRN PRNRF: 0 Discharge Instructions Instructions: Toothache (ED) Additional Instructions: Please see dentist as soon as possible for removal of your teeth. Please take the antibiotic as directed. Please take 800 mg of ibuprofen and 1000 mg of Tylenol every 6 hours. If you notice any worsening of your symptoms, or any new symptoms such as vomiting, diarrhea, fever, chills, shortness of breath, chest pain, numbness, weakness, or fainting , please return immediately to the emergency department for reevaluation. Please follow up with your primary care provider as soon as possible for reassessment and reevaluation. As always, it was a pleasure participating in your medical care today. Referrals: Ale Gutierrez [Primary Care Provider] - Medical Decision Making This is a 27-year-old female with a notably horrible dentition and multiple dental caries, who has not seen a dentist, or followed up with one. She presents today for notable dental pain for the last few weeks which is gradually been worsening. Exam demonstrates atrocious dentition throughout, no evidence of abscess, notable dental caries and old fractured teeth. Patient was given an upper and lower dental block on the right, had near complete resolution of her pain, will be discharged home with antibiotics. We gave a dental resource sheet, and recommend close follow-up including Tylenol and Motrin administration [id number] as needed for pain. I have extensively reviewed the treatment plan and discharge instructions with the patient. I have addressed all patient concerns at this time. The patient was made aware of what symptoms to monitor for that would warrant a return to the emergency department. Discussed the plan with the patient, they demonstrate verbal understanding and agreement with our assessment and plan at this time. Dental block #1 right inferior posterior alveolar Time out was taken to identify the correct patient, procedure, and site. Risks and benefits were discussed with the patient and consent was obtained. Direct pressure was held over the area prior to the procedure to reduce painful injection. 5 cc?s of Lidocaine 1% and Bupivacaine 0.25% was instilled into the posterior inferior alveolar's with a 27 gauge needle.Complete analgesia was obtained. The patient tolerated the procedure. There were no complications. Dental block #2 right superior posterior alveolar Time out was taken to identify the correct patient, procedure, and site. Risks and benefits were discussed with the patient and consent was obtained. Direct pressure was held over the area prior to the procedure to reduce painful injection. 5 cc?s of Lidocaine 1% and Bupivacaine 0.25% was instilled into the right superior posterior alveolar space with a 27 gauge needle.Complete analgesia was obtained. The patient tolerated the procedure. There were no complications. HPI General Date/Time Provider Initiated Documentation: 09/30/18 04:50 . HPI Narrative: This is a 27-year-old female with known dental caries who presents today for dental pain. She states that is been going on for weeks, and is been progressively getting worse. She is taken ibuprofen yesterday but this did not improve her symptoms. She denies any discharge. She has not seen a dentist or contacted a dentist yet. No other complaints at this time. No other modifying factors. She denies neck pain, fever, chills, drainage, sore throat, difficulty breathing or swallowing. Related Data Home Medications Medication Instructions Recorded Confirmed methadone 122 mg PO DAILY #0 07/31/17 08/10/18 ibuprofen 600 mg PO PRN PRN 08/03/18 08/10/18 clindamycin HCl 450 mg PO QID #120 cap 08/10/18 ibuprofen 600 mg PO TID #30 tab 08/10/18 acetaminophen [Mapap Extra 1,000 mg PO Q6H 5 Days #60 tab 09/30/18 Strength] amoxicillin-pot clavulanate 1 tab PO BID #14 tab 09/30/18 [Augmentin] ibuprofen [Motrin Ib] 600 mg PO Q6H 5 Days #60 tab 09/30/18 Previous Rx's Medication Instructions Recorded methadone 122 mg PO DAILY #0 07/31/17 clindamycin HCl 450 mg PO QID #120 cap 08/10/18 ibuprofen 600 mg PO TID #30 tab 08/10/18 acetaminophen [Mapap Extra 1,000 mg PO Q6H 5 Days #60 tab 09/30/18 Strength] amoxicillin-pot clavulanate 1 tab PO BID #14 tab 09/30/18 [Augmentin] ibuprofen [Motrin Ib] 600 mg PO Q6H 5 Days #60 tab 09/30/18 Allergies Allergy/AdvReac Type Severity Reaction Status Date / Time No Known Allergies Allergy Unverified 08/10/18 10:18 General Stated Complaint: DentalOral VASYL: 4 Review of Systems Review of Systems All systems reviewed & are unremarkable except as noted in HPI and below PFSH Social History Smoking/Tobacco Use Status: Current every day Tobacco Type: cigarettes Alcohol Intake: current Alcohol Intake frequency: holidays/special occasions only Drug use: Current Sobriety Substance use type: does not use Do you feel safe at home: Yes Do you feel safe in your relationship?: Yes Exam Narrative Exam Narrative: 1.Const: Well-nourished, Well-developed, appearing stated age 2.Eyes: PERRL, no conjunctival injection, and symmetrical lids. 3.ENT: Atraumatic external nose and ears. Moist MM. Neck: Symmetric, trachea midline, No thyromegaly. Severely poor dentition throughout, multiple dental caries and decaying teeth in the upper and lower teeth particularly on the right. No evidence of peridental abscess. 4.CVS: +S1/S2, No murmurs or gallops. Peripheral pulses 2+ and equal in all extremities. Brisk capillary refill in all extremities. 5.RESP: Unlabored respiratory effort. Clear to auscultation bilaterally. No wheezes rales or rhonchi 6.GI: Soft, Nontender/Nondistended, No hepatosplenomegaly. No guarding or rebo und. 7.MSK: Normocephalic/Atraumatic, Extremities w/o deformity or ttp No cyanosis or clubbing, Normal movement of all extremities 8.Skin: Warm, Dry. No rashes or lesions. 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 Sensation grossly intact, no focal neurologic deficits. 10.Psych: (AAO) x3. Appropriate mood and affect Course Vital Signs Temperature 37.0 C 09/30/18 04:51 Pulse 101 H 09/30/18 04:51 Respiratory Rate 18 09/30/18 04:51 Blood Pressure 144/89 H 09/30/18 04:51 Pulse Oximetry 96 09/30/18 04:51 Temperature 37.0 C 09/30/18 04:51 Temperature Source Temporal Artery Scan 09/30/18 04:51 Pulse 101 H 09/30/18 04:51 Respiratory Rate 18 09/30/18 04:51 Respiratory Effort 09/30/18 04:51 Blood Pressure 144/89 H 09/30/18 04:51 Blood Pressure Position Sitting 09/30/18 04:51 Pulse Oximetry 96 09/30/18 04:51 Oxygen Delivery Method Room Air 09/30/18 04:51 Oxygen Flow Rate 0 09/30/18 04:51
[2018-09-30] MEDS: Ketorolac 30 MG/ML VIAL (05:01)
== END 2018-09-30 05:10 | disposition home or self-care (01) ==
LOC: ER 05:06
PROVIDERS: Emergency Provider Student in an Organized Health Care Education/Training Program; PCP Nurse Practitioner Family
DX: R68.84 Jaw pain (principal)
CPT/HCPCS: 64402; 96374; 99284; 99281; J1885

== ENCOUNTER 2019-01-11 19:37 | Emergency (ER) | payer MEDICAID, SELFPAY ==
[2019-01-11 19:41] VITALS: BP 138/109; PULSE 77; RESP 17; TEMP 35.9; O2SAT 96
--- NOTE | 2019-01-11 20:07 | W.ED.GENAD ---
Discharge Plan Disposition Patient Disposition: HOME Condition: Stable Discharge Details Chief Complaint: DentalOral Clinical Impression: Dental abscess, Pain, dental, Dental caries Primary Care Provider: Ale Gutierrez ED Provider: Lexi Harvey Home Meds and New Rx's Prescriptions: New penicillin V potassium 500 mg tablet 500 mg PO QID 7 Days Qty: 28 RF: 0 Continued methadone 10 MG/ML concentrate 122 mg PO DAILY Qty: 0 RF: 0 acetaminophen [Tylenol] 325 mg Tablet 975 mg PO DIRECTED RF: 0 ibuprofen 200 mg Capsule 600 mg PO PRN PRNRF: 0 Discharge Instructions Instructions: Dental Abscess (ED), Dental Caries (ED) Additional Instructions: Take the antibiotics until finished. Alternate Tylenol and Motrin as needed and directed for pain. Follow-up with the dentist for reevaluation. Return to the emergency department if you develop any worsening or new concerning symptoms. Discharge Data Discharge Physician: Lexi Harvey Medical Decision Making 28 old female presents with right upper dental pain and right-sided facial swelling for the past few days. She has extensive dental caries. There is multiple missing teeth, specifically in the area of pain in the right upper jaw. There is surrounding mucosal erythema and edema with a small 3 x 3 mm area that is slightly raised and fluctuant. Offered to penetrate area with needle but pt declined and she would rather treat with antibiotics. She is advised to flush with plenty of water and Listerine once daily. She denies any chance of . She was given 1 dose of penicillin here as well as prescription for home. She is advised to call her dentist tomorrow to schedule follow-up appointment for reevaluation and to return here anytime if worse. Medical Records Medical records reviewed: Yes I reviewed the patient's medical records. HPI General Mode of arrival: ambulatory. Date/Time Provider Initiated Documentation: 01/11/19 19:41. Limitations to Documentation: no limitations. Information obtained by: patient. HPI Narrative: Patient is a 28-year-old female who presents with right upper dental pain for the past few days. She also admits to right-sided facial swelling that has been progressively worsening. She denies any fever or chills. She denies any recent dental fracture. She states she has extensive dental caries and needs to get these teeth pulled. She denies any sore throat or difficulty swallowing. Related Data Home Medications Medication Instructions Recorded Confirmed methadone 122 mg PO DAILY #0 07/31/17 01/11/19 ibuprofen 600 mg PO PRN PRN 08/03/18 01/11/19 acetaminophen [Tylenol] 975 mg PO DIRECTED 01/11/19 01/11/19 penicillin V potassium 500 mg PO QID 7 Days #28 tab 01/11/19 Previous Rx's Medication Instructions Recorded methadone 122 mg PO DAILY #0 07/31/17 penicillin V potassium 500 mg PO QID 7 Days #28 tab 01/11/19 Allergies Allergy/AdvReac Type Severity Reaction Status Date / Time No Known Allergies Allergy Unverified 08/10/18 10:18 General Stated Complaint: DentalOral VASYL: 4 Review of Systems Review of Systems ROS Unobtainable: All systems reviewed & are unremarkable except as noted in HPI and below Constitutional Constitutional: Reports as per HPI, Denies chills and Denies fever(s) Eyes Eyes: Denies blurry vision ENT Ears, Nose, Mouth, and Throat: Reports dental pain, Denies dizziness, Denies sore throat and Denies throat swelling Cardiovascular Cardiovascular: Denies chest pain and Denies dyspnea Respiratory Respiratory: Denies cough and Denies dyspnea Gastrointestinal Gastrointestinal: Denies abdominal pain, Denies diarrhea and Denies vomiting Genitourinary Genitourinary: Denies hematuria and Denies dysuria Musculoskeletal Musculoskeletal: Denies back pain and Denies numbness Integumentary/Breasts Skin/Breast: Denies lesions and Denies rash Neurologic Neurologic: Denies dizziness, Denies focal weakness and Denies numbness Allergic/Immunologic Allergic/Immunologic: Denies throat swelling [facility] Medical History Cellulitis and abscess of left leg (Acute) Cellulitis of right breast (Acute) Dental abscess (Chronic) History of intravenous drug abuse (Inactive) Methadone dependence (Chronic) Tobacco abuse (Chronic) Social History Smoking/Tobacco Use Status: Current every day Tobacco Type: cigarettes Alcohol Intake: current Alcohol Intake frequency: holidays/special occasions only Drug use: Current Sobriety Substance use type: former substance user Do you feel safe at home: Yes Do you feel safe in your relationship?: Yes Exam Const General: cooperative, healthy appearing and no acute distress [facility] Head: normal to inspection Ears: hearing grossly normal bilaterally, external ears normal and TM's normal bilaterally General nose exam: external nose normal Mouth: oral mucosae normal Teeth image: 1. Extensive dental caries throughout with missing teeth and base still embedded. There is edema and erythema of the surrounding mucosa. There is a 3 x 3 cm area of tender fluctuance just above in between tooth #3 and 4. It is slightly raised and does not appear significantly fluctuant. There is no active drainage or bleeding. Throat: posterior oropharynx normal Eyes General: appearance normal, both eyes and all related structures Neck Neck: normal visual inspection, no meningeal signs, trachea midline, supple, no anterior neck swelling and No submandibular swelling Resp Effort & Inspection: normal respiratory effort and able to speak in complete sentences Cardio Rate: regular rate Skin General skin exam: no rashes or lesions noted Neuro General: alert, awake and oriented x3 Motor: muscle tone normal throughout Extrem General: normal to inspection and full ROM Psych Appearance: grossly normal Affect: normal affect Course Vital Signs Vital signs: Vital Signs Temperature 96.6 F L 01/11/19 19:41 Pulse 77 01/11/19 19:41 Respiratory Rate 17 01/11/19 19:41 Blood Pressure 138/109 H 01/11/19 19:41 Pulse Oximetry 96 01/11/19 19:41 Temperature 96.6 F L 01/11/19 19:41 Temperature Source Skin 01/11/19 19:41 Pulse 77 01/11/19 19:41 Respiratory Rate 17 01/11/19 19:41 Respiratory Effort 01/11/19 19:45 Blood Pressure 138/109 H 01/11/19 19:41 Blood Pressure Position Sitting 01/11/19 19:41 Pulse Oximetry 96 01/11/19 19:41 Oxygen Delivery Method Room Air 01/11/19 19:41 Oxygen Flow Rate 0 01/11/19 19:41 Pain Level 8 01/11/19 19:45
[2019-01-11] MEDS: Penicillin V POTASSIUM 500 MG TAB PO (20:34)
== END 2019-01-11 20:35 | disposition home or self-care (01) ==
PROVIDERS: Emergency Provider Physician Assistant; PCP Nurse Practitioner Family
DX: K04.7 Periapical abscess without sinus (principal); K02.9 Dental caries, unspecified
CPT/HCPCS: 99283

== ENCOUNTER 2019-03-07 08:46 | Emergency (ER) | payer MEDICAID, SELFPAY ==
[2019-03-07 08:52] VITALS: BP 162/90; PULSE 102; RESP 16; TEMP 36.5; O2SAT 96
--- NOTE | 2019-03-07 09:14 | ED.GENADUL_ITS ---
Discharge Plan Disposition Patient Disposition: HOME Condition: Improving Discharge Details Chief Complaint: RespSymp Clinical Impression: Acute bronchitis with bronchospasm Primary Care Provider: Ale Gutierrez ED Provider: Brown Easley Home Meds and New Rx's Prescriptions: New prednisone 20 mg tablet 40 mg PO DAILY 5 Days Qty: 10 RF: 0 amoxicillin-pot clavulanate 875-125 mg tablet 1 tab PO BID 10 Days Qty: 19 RF: 0 No Action acetaminophen [Tylenol] 325 mg Tablet 975 mg PO DIRECTED RF: 0 ibuprofen 200 mg Capsule 600 mg PO PRN PRNRF: 0 methadone 10 MG/ML concentrate 80 mg PO DAILY RF: 0 Discharge Instructions Instructions: Acute Bronchitis (ED) Additional Instructions: Please continue to push fluids. Small, frequent sips of water, juice, coconut water, Gatorade. You may also use popsicles for comfort. Continue efforts to decrease smoking. Take Augmentin twice daily as prescribed. Recommend you take an [id number] probiotic or live culture yogurt once daily while on this medication. Take prednisone as prescribed, the next dose will be tomorrow. May use the albuterol inhaler 2 puffs every 4 hours as needed for cough or wheezing. Return if you feel you must use the inhaler more frequently. Return to the emergency department for worsening cough, difficulty breathing, or any other acute concerns. Medical Decision Making 28-year-old female former drug user presents with cough, congestion, production of green sputum and over 2 weeks time. She is also concerned for the possibility of developing a small area of cellulitis on the right elbow. On exam she has some wheeze and rhonchi present, her vital signs are reassuring she has some mild tachycardia but normal oxygenation. This is consistent with an acute bronchitis, may have mild sinusitis. Do not feel there is a significant component of right elbow cellulitis, but would treat the above with a course of Augmentin. She will benefit from the use of inhaler, will continue to minimize cigarette use, and I will place her on a burst of prednisone. She understands homecare including liberal amounts of fluids. She will return for worsening or any other acute concerns. HPI General Mode of arrival: ambulatory . Date/Time Provider Initiated Documentation: 03/07/19 08:55 . Limitations to Documentation: no limitations . Information obtained by: patient . History of Present Illness 28 year old F presents to the emergency department with the chief complaint of Cough, congestion, concern for right elbow cellulitis, described as moderate, and is localized to the head, chest and upper extremity. Patient reports no radiation. Patient started experiencing this day(s) and it has been constant. No relieving factors improve symptom(s), No exacerbating factors reported . Patient notes fever/chills; denies nausea/vomiting. Patient did receive the following treatments prior to arrival, none Related Data Home Medications Medication Instructions Recorded Confirmed ibuprofen 600 mg PO PRN PRN 08/03/18 03/07/19 acetaminophen [Tylenol] 975 mg PO DIRECTED 01/11/19 03/07/19 amoxicillin-pot clavulanate 1 tab PO BID 10 Days #19 tab 03/07/19 methadone 80 mg PO DAILY 03/07/19 03/07/19 prednisone 40 mg PO DAILY 5 Days #10 tab 03/07/19 Previous Rx's Medication Instructions Recorded amoxicillin-pot clavulanate 1 tab PO BID 10 Days #19 tab 03/07/19 prednisone 40 mg PO DAILY 5 Days #10 tab 03/07/19 Allergies Allergy/AdvReac Type Severity Reaction Status Date / Time No Known Allergies Allergy Unverified 03/07/19 08:56 General Stated Complaint: RespSymp VASYL: 3 Review of Systems Narrative: 6 systems reviewed and otherwise negative. States she used to use IV drugs, not currently, has had frequent skin infections. [facility] Medical History Cellulitis and abscess of left leg (Acute) Cellulitis of right breast (Acute) Dental abscess (Chronic) History of intravenous drug abuse (Inactive) Methadone dependence (Chronic) Tobacco abuse (Chronic) Social History Smoking/Tobacco Use Status: Current every day Tobacco Type: cigarettes Alcohol Intake: current Alcohol Intake frequency: holidays/special occasions only Drug use: Current Sobriety Substance use type: former substance user Do you feel safe at home: Yes Do you feel safe in your relationship?: Yes Exam Narrative Exam Narrative: GEN: awake, alert, oriented 3. Pleasant, well groomed, interactive. HEAD: Normocephalic, atraumatic ENT: Mucous membranes moist, oropharynx unremarkable, soft maxillary and frontal sinus tenderness to percussion, tympanic membranes clear bilaterally external ear exam unremarkable EYES: PERRL, EOMI NECK: Full ROM, mild anterior submandibular RIGOBERTO, no menigismus CHEST/RESP: Nontender, scattered rhonchi, bilateral end expiratory wheeze present CARDIOVASCULAR: RRR, no murmur, rub buzz. 2+ Rad pulse bilateral ABDOMEN: Soft, nontender, no mass. +Bowel sounds EXT: Full ROM, no edema, right elbow with 3 cm diameter area of erythema, but does not track approximately Neuro: Grossly normal neurologic exam, conversant, interactive. Psych: Speech fluent, thoughts congruent, affect normal Course Vital Signs Vital signs: Vital Signs Temperature 36.5 C 03/07/19 08:52 Pulse 102 H 03/07/19 08:52 Respiratory Rate 16 03/07/19 08:52 Blood Pressure 162/90 H 03/07/19 08:52 Pulse Oximetry 96 03/07/19 08:52 Temperature 36.5 C 03/07/19 08:52 Temperature Source Skin 03/07/19 08:52 Pulse 102 H 03/07/19 08:52 Respiratory Rate 16 03/07/19 08:52 Respiratory Effort Non-Labored 03/07/19 09:00 Respiratory Depth Normal 03/07/19 09:00 Blood Pressure 162/90 H 03/07/19 08:52 Blood Pressure Position Sitting 03/07/19 08:52 Pulse Oximetry 96 03/07/19 08:52 Oxygen Delivery Method Room Air 03/07/19 08:52 Oxygen Flow Rate 0 03/07/19 08:52 Pain Level 5 03/07/19 08:52
[2019-03-07] MEDS: Amoxicillin 875/Clav. 125 TAB PO (09:27)
[2019-03-07] MEDS: predniSONE 20 MG TAB 60 MG PO (09:27)
[2019-03-07] MEDS: Albuterol HFA 8 GM 60 PUFF INH IH (09:28)
[2019-03-07] MEDS: Inhaler, Assist Device 1 EACH MC (09:30)
== END 2019-03-07 09:40 | disposition home or self-care (01) ==
PROVIDERS: Emergency Provider Emergency Medicine; PCP Nurse Practitioner Family
DX: J20.9 Acute bronchitis, unspecified (principal); R60.0 Localized edema; F17.210 Nicotine dependence, cigarettes, uncomplicated; F11.21 Opioid dependence, in remission
CPT/HCPCS: 99283; J7512

== ENCOUNTER 2019-04-28 08:49 | Emergency (ER) | payer MEDICAID, SELFPAY ==
[2019-04-28 08:57] VITALS: PULSE 90; RESP 18; TEMP 36.7; O2SAT 97
--- NOTE | 2019-04-28 08:58 | ED.GENADUL_ITS ---
Discharge Plan Disposition Patient Disposition: HOME Condition: Good Discharge Details Chief Complaint: DentalOral Clinical Impression: Dental abscess Primary Care Provider: Ale Gutierrez ED Provider: Yandy Acevedo Home Meds and New Rx's Prescriptions: New penicillin V potassium 500 mg tablet 500 mg PO QID Qty: 40 RF: 0 ibuprofen 600 mg tablet 600 mg PO Q8H PRN (Reason: pain) Qty: 21 RF: 0 No Action acetaminophen [Tylenol] 325 mg Tablet 975 mg PO DIRECTED RF: 0 ibuprofen 200 mg Capsule 600 mg PO PRN PRNRF: 0 methadone 10 MG/ML concentrate 80 mg PO DAILY RF: 0 Discharge Instructions Instructions: Dental Abscess (ED) Additional Instructions: Warm salt water rinses after eating or drinking frequently in the next several days. Ice to cheek for swelling. Use Tylenol for pain 1000 mg every 6-8 hours. Use ibuprofen as prescribed with food prior to taking this medication. Use antibiotic as prescribed. Please follow-up promptly with dentist. Return for any increase in swelling, increase in pain, worsening symptoms if needed sooner as discussed Medical Decision Making 28-year-old patient presents for concern of dental abscesses with kelsea hernandez for the last 3 days. Patient reports some relief with methadone treatment in the morning however at night pain is becoming difficult to tolerate. Unable to sleep last night. On exam patient has widespread dental caries with gingival inflammation and concern for infection at tooth #10. Patient with small external area of swelling with a moderate sized abscess posterior to tooth #10 on the palate. Fluctuant abscess noted. Patient offered incision and drainage and she declines at this time. Will consent only to needle aspiration. Lidocaine 1% used locally for anesthetic followed by 18-gauge needle aspiration with approximately 1 cc of pus being removed. Improved with the size of patient's abscess by approximately 50%. Patient tolerated with mild difficulty. Patient advised to rinse. Initial penicillin provided as well as Tylenol. Conservative treatments discussed. Encouraged return precautions and consideration for return for incision and drainage however patient remains resistant to this procedure. The patient was stable and requested discharge. Prior to discharge, my usual and customary return precautions were reviewed with the patient - this included follow-up instructions and reasons to return to the Emergency Department if conditions worsens, does not improve as expected, or other new concerns arise. HPI General Date/Time Provider Initiated Documentation: 04/28/19 08:56 . HPI Narrative: Is a 36-year-old patient presenting for concern of dental abscess on the roof of her mouth. Patient reports pain for the last 3 days and increasing dental swelling. Patient reports widespread dental caries. Denies fever, chills, nausea, vomiting. Patient seeking antibiotic treatment reports persistence of pain difficulty sleeping last night. Patient is on methadone. Patient is able to eat and drink with some difficulty due to pain. No voice change or trismus. Denies any other concerns or complaints at this time. Related Data Home Medications Medication Instructions Recorded Confirmed ibuprofen 600 mg PO PRN PRN 08/03/18 04/28/19 acetaminophen [Tylenol] 975 mg PO DIRECTED 01/11/19 04/28/19 methadone 80 mg PO DAILY 03/07/19 04/28/19 ibuprofen 600 mg PO Q8H PRN #21 tab 04/28/19 penicillin V potassium 500 mg PO QID #40 tab 04/28/19 Previous Rx's Medication Instructions Recorded ibuprofen 600 mg PO Q8H PRN #21 tab 04/28/19 penicillin V potassium 500 mg PO QID #40 tab 04/28/19 Allergies Allergy/AdvReac Type Severity Reaction Status Date / Time No Known Allergies Allergy Unverified 03/07/19 08:56 General VASYL: 3 Review of Systems All systems reviewed & are unremarkable except as noted in HPI and below Constitutional Constitutional: Denies chills, Denies fever(s) and Denies malaise ENT Ears, Nose, Mouth, and Throat: Reports dental pain, Denies sinus pain, Denies sinus pressure, Denies sore throat and Denies throat swelling Integumentary/Breasts Skin/Breast: Denies rash and Denies wounds Allergic/Immunologic Allergic/Immunologic: Denies throat swelling [facility] Medical History Cellulitis and abscess of left leg (Acute) Cellulitis of right breast (Acute) Dental abscess (Chronic) History of intravenous drug abuse (Inactive) Methadone dependence (Chronic) Tobacco abuse (Chronic) Social History Smoking/Tobacco Use Status: Current every day Tobacco Type: cigarettes Alcohol Intake: current Alcohol Intake frequency: holidays/special occasions only Drug use: Current Sobriety Substance use type: former substance user Do you feel safe at home: Yes Do you feel safe in your relationship?: Yes Exam Narrative Exam Narrative: CONST: Healthy appearing patient, in no acute distress. Well hydrated. Alert and oriented. HENMT: Head nomocephalic, normal to inspection. Atraumatic. Hearing grossly normal. TMs appear normal bilaterally without associated effusion. Posterior pharynx without injection, exudate or swelling. Patient with widespread dental caries with gingival inflammation through the upper teeth. Patient with developing abscess at tooth #10 externally with a a large palate abscess noted on the left. EYES: General normal appearance. Alignment normal. Eyelids normal. Conjunctiva normal. NECK: Normal visual inspection. FROM. Trachea midline. No Midline tenderness. No cervical lymphadenopathy SKIN: Normal. Dry. No rashes. No facial cellulitis
[2019-04-28] MEDS: Acetaminophen 500 MG TAB 1000 MG PO (09:31)
[2019-04-28] MEDS: Penicillin V POTASSIUM 500 MG TAB PO (09:31)
== END 2019-04-28 10:02 | disposition home or self-care (01) ==
PROVIDERS: Emergency Provider Physician Assistant; PCP Nurse Practitioner Family
DX: R68.84 Jaw pain (principal); K04.7 Periapical abscess without sinus
CPT/HCPCS: 10160

== ENCOUNTER 2020-03-06 13:38 | Emergency (ER) | payer MEDICAID, SELFPAY ==
[2020-03-06 13:40] VITALS: BP 135/88; PULSE 98; RESP 16; TEMP 36.3; O2SAT 96
--- NOTE | 2020-03-06 13:56 | W.ED.GENAD ---
Discharge Plan Disposition Patient Disposition: HOME Condition: Stable Discharge Details Clinical Impression: Candidiasis of vagina Primary Care Provider: Ale Gutierrez ED Provider: Valentina Arevalo Home Meds and New Rx's Prescriptions: New fluconazole [Diflucan] 150 mg tablet 150 mg PO Q3D Qty: 2 RF: 0 Continued ibuprofen 200 mg Capsule 600 mg PO PRN PRNRF: 0 methadone 10 MG/ML concentrate 80 mg PO DAILY RF: 0 Discharge Instructions Instructions: Yeast Infection (ED) Additional Instructions: Follow up with primary care provider in 3-5 days. Return to ED sooner if any worsening or concerns. Increase oral fluids. Take the fluconazole in 3 days if still persist. At this time the cultures are pending we will call you if positive. Referrals: Ale Gutierrez [Primary Care Provider] - Discharge Data Discharge Date/Time-TO BE ENTERED AT DEPARTURE: 03/06/20 14:40 Medical Decision Making 29-year-old female presents to the ED with chief complaint of vaginal discharge. She states this began approximately 2 weeks ago she notes vaginal itching, thick white discharge and a foul odor. She is sexually active. She denies any fever, abdominal pain, dysuria. She does note some urinary hesitancy, she denies having any gonorrhea or chlamydia in the past. Pelvic exam findings are consistent with Vicky infection. GC/Chlamydia/ Vaginal pathogen screen is pending at this time. Patient given Diflucan 150 mg PO here in dept. Prescription given to repeat in 3 days if symptoms persist. Instructed to follow up with PCP and discussed strict return instructions. HPI General Mode of arrival: ambulatory. Date/Time Provider Initiated Documentation: 03/06/20 13:44. Limitations to Documentation: no limitations. Information obtained by: patient. HPI Narrative: 29-year-old female presents to the ED with chief complaint of vaginal discharge. She states this began approximately 2 weeks ago she notes vaginal itching, thick white discharge and a foul odor. She is sexually active. She denies any fever, abdominal pain, dysuria. She does note some urinary hesitancy, she denies having any gonorrhea or chlamydia in the past. 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 HEENT: Denies trauma, headaches, blurry vision, nasal discharge, sore throat, trouble swallowing. Chest: Denies chest pain, palpitations, irregular rhythm, hypertension. Respiratory: Denies Shortness of breath, cough, hemoptysis. GI: Denies abdominal pain, nausea, vomiting, diarrhea, constipation. : Denies dysuria, hematuria, flank pain, rectal bleeding. Positive vaginal discharge and itching. Neuro: Denies dizziness, blurry vision, weakness, syncope, headache or facial numbness. Hematologic: Denies easy bruising, intolerance to heat or cold, hair loss. [facility] Medical History (Updated 03/06/20 @ 14:20 by Valentina Arevalo) Cellulitis and abscess of left leg Cellulitis of right breast Dental abscess History of intravenous drug abuse Methadone dependence Tobacco abuse Social History Smoking/Tobacco Use Status: Current every day Tobacco Type: cigarettes Smoking risk assessment performed?: Yes Alcohol Intake: current Alcohol Intake frequency: holidays/special occasions only Drug use: Current Sobriety Substance use type: former substance user Do you feel safe at home: Yes Do you feel safe in your relationship?: Yes Exam Narrative Exam Narrative: Constitutional: Alert and oriented x3. Appears stated age. Normal body habitus. Head: Normocephalic, no trauma. Eyes: Pupils PERRLA, Red reflex noted, EOM's intact. Eyelids symmetrical without lesions, discharge, or swelling. ENT: Bilateral TM's WNL, External ear normal to inspection, no mastoid TTP, swelling, or erythema, Nasal turbinates WNL, no nasal discharge. Normal dentition, Posterior pharynx WNL, no exudate. Chest: RRR, Normal S1, S2, distal pulses intact. Resp: Lungs clear to auscultation bilaterally, no wheezes, rales, or rhonchi. Musculoskeletal: Normal gait, 5/5 strength to all four extremities. Neurologic: Cranial nerves II-XII intact. Alert and oriented x 3. DTR's intact. Hematologic/Lymphatic: No ecchymosis, no lymphadenopathy. General: No CVA tenderness External Female Exam: normal external appearance Speculum Exam - Vagina: abnormal vaginal discharge white and caseous Speculum Exam - Cervix: normal appearance of the cervix Bimanual Exam- Vagina & Uterus: normal bimanual exam and no cervical motion tenderness Bimanual Exam- Adnexa, other: normal adnexae Course Vital Signs Vital signs: Vital Signs Temperature 36.3 C L 03/06/20 13:40 Pulse 98 H 03/06/20 13:40 Respiratory Rate 16 03/06/20 13:40 Blood Pressure 135/88 03/06/20 13:40 Pulse Oximetry 96 03/06/20 13:40 Temperature 36.3 C L 03/06/20 13:40 Temperature Source Skin 03/06/20 13:40 Pulse 98 H 03/06/20 13:40 Respiratory Rate 16 03/06/20 13:40 Respiratory Effort 03/06/20 13:49 Blood Pressure 135/88 03/06/20 13:40 Blood Pressure Position Sitting 03/06/20 13:40 Pulse Oximetry 96 03/06/20 13:40 Oxygen Delivery Method Room Air 03/06/20 13:40 Oxygen Flow Rate 0 03/06/20 13:40 Pain Level 0 03/06/20 13:40
[2020-03-06 14:12] LABS: Bilirubin Negative (Negative); Blood Negative (Negative); Clarity Clear (Clear); Glucose Negative (Negative); Ketones Negative (Negative); Leukocyte Esterase Negative (Negative); Nitrite Negative (Negative); Urobilinogen 0.2 EU/dL (Up TO 0.2); pH 7.5 (5-8)
[2020-03-06] MEDS: Fluconazole 150 MG TAB PO (14:38)
[2020-03-07 13:07] LABS: Chlamydia Result Negative (Negative); GC Result Negative (Negative)
== END 2020-03-06 14:40 | disposition home or self-care (01) ==
PROVIDERS: Emergency Provider Registered Nurse Emergency; PCP Nurse Practitioner Family
DX: B37.3 Candidiasis of vulva and vagina (principal)
CPT/HCPCS: 81025; 87491; 87591; 99284; 81003; 87480; 87510; 87660; 99283

== ENCOUNTER 2020-08-16 07:11 | Emergency (ER) | payer MEDICAID, SELFPAY ==
[2020-08-16 07:17] VITALS: BP 96/62; PULSE 83; TEMP 36.6; O2SAT 97
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
--- NOTE | 2020-08-16 08:05 | ED.GENADUL_ITS ---
Discharge Plan Disposition Patient Disposition: HOME Condition: Stable Discharge Details Clinical Impression: Abscess of right breast Primary Care Provider: Ale Gutierrez ED Provider: Danis Muhammad Home Meds and New Rx's Prescriptions: New sulfamethoxazole-trimethoprim [Bactrim DS] 800-160 mg tablet 1 tab PO BID Qty: 19 RF: 0 cephalexin 500 mg tablet 500 mg PO QID Qty: 39 RF: 0 Continued ibuprofen 200 mg Capsule 600 mg PO PRN PRNRF: 0 methadone 10 MG/ML concentrate 80 mg PO DAILY RF: 0 Discharge Instructions Instructions: Abscess (ED) Additional Instructions: Please stop using IV drugs. Please get COVID-19 vaccine as soon as possible. Apply warm compresses to your abscess to encourage drainage 3-4 times a day until abscess heals. Take antibiotic as prescribed. Be sure to complete the full course as prescribed. Please follow-up with general surgery. Call today to schedule timely follow-up. Return to the emergency department immediately for any worsening or new concerning symptoms. Referrals: Barber Bazan MD [MD CONSULTING PHYSICIAN] - Discharge Data Discharge Date/Time-TO BE ENTERED AT DEPARTURE: 08/16/20 09:49 Medical Decision Making 29-year-old female IV drug user here with right breast abscess that is draining. Patient is afebrile. No systemic symptoms. Right breast examined with female labeling associate nurse Jacqueline present. No palpable fluctuance. There is localized surrounding erythema about the ruptured abscess. Patient was given ceftriaxone 2 g IV and had ultrasound of the right breast performed. Ultrasound interpreted by Dr. Larry who notes superficial fluid collection 2 cm x 0.7 cm., not well developed. I called and spoke with general surgeon alteration tailor, Dr. Bazan, discussed ED presentation and course, recommends opening abscess and plan for treatment with bactrim and keflex and close outpatient followup. Healing fibrous tissue over ulcer was removed with scalpel and abscess packed with iodoform. Usual and customary discharge instructions were reviewed with the patient. HPI General Mode of arrival: ambulatory . Date/Time Provider Initiated Documentation: 08/16/20 07:36 . Limitations to Documentation: no limitations . Information obtained by: patient . HPI Narrative: 29-year-old female with history of IV drug use, last used a couple weeks ago, presents with chief complaint of breast infection. Patient notes she started to have right breast pain approximately 3 to 4 days ago. Symptoms have worsened and yesterday became severe. She noted discharge from her right breast area of inflammation that started yesterday and has continued. No modifiers. No associated fever. No other rash or abscess. Related Data Home Medications Medication Instructions Recorded Confirmed ibuprofen 600 mg PO PRN PRN 08/03/18 08/16/20 methadone 80 mg PO DAILY 03/07/19 08/16/20 cephalexin 500 mg PO QID #39 tab 08/16/20 sulfamethoxazole-trimethoprim 1 tab PO BID #19 tab 08/16/20 [Bactrim DS] Previous Rx's Medication Instructions Recorded cephalexin 500 mg PO QID #39 tab 08/16/20 sulfamethoxazole-trimethoprim 1 tab PO BID #19 tab 08/16/20 [Bactrim DS] Allergies Allergy/AdvReac Type Severity Reaction Status Date / Time No Known Allergies Allergy Unverified 08/16/20 07:21 General Stated Complaint: Cellulitis VASYL: 3 Review of Systems All systems reviewed & are unremarkable except as noted in HPI and below Constitutional Constitutional: Denies fever(s) Respiratory Respiratory: Denies cough [facility] Medical History (Updated 08/16/20 @ 08:48 by Danis Muhammad MD) Cellulitis and abscess of left leg Cellulitis of right breast Dental abscess History of intravenous drug abuse Methadone dependence Tobacco abuse Social History Smoking/Tobacco Use Status: Current every day Tobacco Type: cigarettes Smoking risk assessment performed?: Yes Alcohol Intake: current Alcohol Intake frequency: holidays/special occasions only Drug use: Current Sobriety Substance use type: former substance user Do you feel safe at home: Yes Do you feel safe in your relationship?: Yes Exam Const General: cooperative and no acute distress HENMT Mouth: moist mucous membranes Eyes Conjunctivae: normal conjunctivae Sclera: normal sclerae Neck Neck: trachea midline and supple Resp Auscultation: clear to auscultation bilaterally, no rales, no rhonchi and no wheezes Cardio Rate: regular rate and not tachycardic Rhythm: regular rhythm GI Palpation: soft, not firm, no guarding, no masses, not rigid and nontender Skin Other: Enlarged right breast abscess draining with localized cellulitis Neuro General: patient alert, patient awake, patient oriented x3 and tone normal Extrem General: no edema Psych Appearance: grossly normal Mental Status: mental status grossly normal Speech and Movement: speech and movement normal Course Vital Signs Vital signs: Vital Signs Temperature 36.6 C 08/16/20 07:17 Pulse 83 08/16/20 07:17 Blood Pressure 96/62 L 08/16/20 07:17 Pulse Oximetry 97 08/16/20 07:17 Temperature 36.6 C 08/16/20 07:17 Temperature Source Temporal Artery Scan 08/16/20 07:17 Pulse 83 08/16/20 07:17 Respiratory Effort Non-Labored 08/16/20 07:19 Blood Pressure 96/62 L 08/16/20 07:17 Blood Pressure Position Sitting 08/16/20 07:17 Pulse Oximetry 97 08/16/20 07:17 Oxygen Delivery Method Room Air 08/16/20 07:17 Oxygen Flow Rate 0 08/16/20 07:17 Pain Level 5 08/16/20 07:17 Procedures Abscess I/D Site: Other (breast) Side (if applicable): Right Local Anesthetic: Lidocaine 1% Amount of anesthesia used (mL): 3 Technique: Incised with #11 Blade Irrigation: Yes Packing used?: Iodoform Complications: Pain
[2020-08-16] MEDS: cefTRIAXone 2 GM/50 ML BAG IVPB (08:10)
[2020-08-16] MEDS: Normal Saline Flush 10 ML SYR IVP (08:10)
[2020-08-16 08:22] LABS: Abs Immature Grans 0.02 10^3/uL (0.0-0.06); Absolute Basophil Count 0.04 10^3/uL (0.0-0.2); Absolute Lymphocyte Count 1.57 10^3/uL (1.2-3.4); Absolute Monocyte Count 0.27 10^3/uL (0.1-0.8); Absolute Neutrophil Count 4.53 10^3/uL (1.2-6.7); Basophils % 0.6; HCT 39.8 % (36.0-46.0); HGB 12.5 g/dL (11.2-15.7); Immature Grans % 0.3; Lactate 1.6 mmol/L (0.6-1.4); Lymphocytes % 23.7; MCH 27.7 pg (27.0-33.0); MCHC 31.4 % (32.0-36.0); MCV 88.2 fL (80-95); MPV 10.6 fL (8.0-11.0); Monocytes % 4.1; Neutrophils % 68.3; Nucleated RBC 0 %; Platelet Count 224 10^3/uL (130-400); RBC 4.51 10^6/uL (3.93-5.22); RDW 13.5 % (11.7-14.6); RDW-SD 43.6 fL; WBC 6.63 10^3/uL (4.4-10.8)
[2020-08-16 09:12] LABS: ALT 22 U/L (14-59); AST 16 U/L (15-37); Alkaline Phosphatase 105 U/L (46-116); Anion Gap 4.5 mmol/L (3-11); BUN 9 mg/dL (7-18); Bilirubin, Total 0.1 mg/dL (0.2-1.0); CO2 32.5 mmol/L (21.0-32.0); CREATININE 0.7 mg/dL (0.55-1.02); Calcium 8.6 mg/dL (8.5-10.1); Chloride 104 mmol/L (98-107); Glucose 92 mg/dL (74-106); Potassium 4.9 mmol/L (3.5-5.1); Sodium 141 mmol/L (136-145); Total Protein 7.5 g/dL (6.4-8.2)
[2020-08-16] MEDS: Sulfameth/Trimeth DS TAB 1 TAB PO (09:19)
--- NOTE | 2020-08-17 17:47 | NUR.NOTE ---
Nursing Note: referral to cm for covid shot disscussioj
== END 2020-08-16 09:49 | disposition home or self-care (01) ==
PROVIDERS: Emergency Provider Student in an Organized Health Care Education/Training Program; PCP Nurse Practitioner Family
DX: N61.1 Abscess of the breast and nipple (principal); F11.10 Opioid abuse, uncomplicated
CPT/HCPCS: 36415; 76642; 80053; 96365; 99284; 83605; 85025; 87070; 87205; 99285

== ENCOUNTER 2020-10-28 09:44 | Emergency (ER) | payer MEDICAID, SELFPAY ==
[2020-10-28 09:51] VITALS: BP 104/69; PULSE 80; RESP 18; TEMP 36.3; O2SAT 95
--- NOTE | 2020-10-28 10:04 | ED.GENADUL_ITS ---
Discharge Plan Disposition Patient Disposition: HOME Condition: Stable Discharge Details Clinical Impression: Dental infection Primary Care Provider: Ale Gutierrez ED Provider: Clyde Forman Home Meds and New Rx's Prescriptions: New amoxicillin 875 mg tablet 875 mg PO BID Qty: 20 RF: 0 Continued ibuprofen 200 mg Capsule 600 mg PO PRN PRNRF: 0 methadone 10 MG/ML concentrate 80 mg PO DAILY RF: 0 Discharge Instructions Instructions: Dental Abscess (ED) Additional Instructions: Amoxicillin as directed. [id number] Tylenol and/or Motrin as directed for discomfort. You may also use salt water swish and spit as well as [id number] numbing agents like Anbesol. Please watch for new or worsening symptoms and return to the ER for any concerns. Cool and/or warm compresses every 2 hours for 20 minutes. As you already know, you will need to see an oral surgeon for more definitive care. It sounds like you plan on reaching out to one in the near future Medical Decision Making 29-year-old female presents for acute on chronic dental pain, understands she needs to see an oral surgeon for definitive care. Clinically she appears well, nontoxic, airway is patent, no evidence of trismus, O2 sats 95% on room air. Patient is able to speak in full sentences and manage her secretions without difficulty. No pointing abscess that will require I&D at this time. Plan is to initiate antibiotic therapy. First dose given now. Patient has no additional questions or concerns and is comfortable discharge. Standard discharge and return precautions given This documentation was generated using [employer] dictation system, please disregard any oddities of phrase or misspellings. Medical Records Medical records reviewed: Yes I reviewed the patient's medical records. HPI General Mode of arrival: ambulatory . Date/Time Provider Initiated Documentation: 10/28/20 09:48 . Limitations to Documentation: no limitations . Information obtained by: patient . HPI Narrative: This is a 29-year-old female, current smoker, history of IV drug abuse now taking methadone daily, presenting to the ER with acute on chronic dental pain. Patient states poor dentition at baseline but increased pain and swelling over the past 24 hours, denies recent illness or trauma. Patient states that she understands that she needs to see an oral surgeon just has not set up the process yet. Denies fever, headache, ear pain, nasal discharge, sore throat, redness, drainage, any other symptoms. Has not taken any medications for her symptoms. Discomfort is moderate, reports that eating ice cream helps her symptoms Related Data Home Medications Medication Instructions Recorded Confirmed ibuprofen 600 mg PO PRN PRN 08/03/18 10/28/20 methadone 80 mg PO DAILY 03/07/19 10/28/20 amoxicillin 875 mg PO BID #20 tab 10/28/20 Previous Rx's Medication Instructions Recorded amoxicillin 875 mg PO BID #20 tab 10/28/20 Allergies Allergy/AdvReac Type Severity Reaction Status Date / Time No Known Allergies Allergy Unverified 10/28/20 09:59 General Stated Complaint: DentalOral VASYL: 4 Review of Systems Constitutional Constitutional: Denies fever(s) and Denies headache(s) ENT Ears, Nose, Mouth, and Throat: Denies headache(s), Denies neck pain and Denies sore throat Cardiovascular Cardiovascular: Denies chest pain and Denies dyspnea Respiratory Respiratory: Denies dyspnea Musculoskeletal Musculoskeletal: Denies neck pain Integumentary/Breasts Skin/Breast: Denies erythema and Denies rash Neurologic Neurologic: Denies headache(s) [facility] Medical History Cellulitis and abscess of left leg Cellulitis of right breast Dental abscess History of intravenous drug abuse Methadone dependence Tobacco abuse Social History Smoking/Tobacco Use Status: Current every day Tobacco Type: cigarettes Smoking risk assessment performed?: Yes Alcohol Intake: current Alcohol Intake frequency: holidays/special occasions only Drug use: Current Sobriety Substance use type: former substance user Details: Methadone clinic Do you feel safe at home: Yes Do you feel safe in your relationship?: Yes Exam Const General: cooperative, healthy appearing, comfortable and no acute distress Orientation: alert and awake [facility] Head: normal to inspection, normocephalic and atraumatic Ears: external ears normal, TM's normal bilaterally and EAC's normal General nose exam: external nose normal Face images: 1. Minimal swelling. Skin is intact. No fluctuance or induration. No drainage or pointing abscess. Minimal discomfort to palpation Mouth: oral mucosae normal and moist mucous membranes Teeth and gingiva: poor dentition (Throughout, multiple teeth decayed to gumline) Throat: posterior oropharynx normal Other: No evidence of trismus. No pointing abscess. Airway is patent Eyes General: appearance normal, both eyes and all related structures Conjunctivae: conjunctivae normal Neck Neck: normal visual inspection, full ROM, no lymphadenopathy, no meningeal signs, trachea midline, supple and nontender Resp Effort & Inspection: normal respiratory effort and able to speak in complete sentences Skin General skin exam: no rashes or lesions noted Neuro General: patient alert, patient awake, moves all extremities and no focal motor deficits Sensory Exam: no sensory deficits noted Psych Appearance: grossly normal Mental Status: mental status grossly normal Course Vital Signs Vital signs: Vital Signs Temperature 36.3 C L 10/28/20 09:51 Pulse 80 10/28/20 09:51 Respiratory Rate 18 10/28/20 09:51 Blood Pressure 104/69 10/28/20 09:51 Pulse Oximetry 95 10/28/20 09:51 Temperature 36.3 C L 10/28/20 09:51 Temperature Source Oral 10/28/20 09:51 Pulse 80 10/28/20 09:51 Respiratory Rate 18 10/28/20 09:51 Respiratory Effort Non-Labored 10/28/20 09:55 Blood Pressure 104/69 10/28/20 09:51 Blood Pressure Position Sitting 10/28/20 09:51 Pulse Oximetry 95 10/28/20 09:51 Oxygen Delivery Method Room Air 10/28/20 09:51 Oxygen Flow Rate 0 10/28/20 09:51 Pain Level 7 10/28/20 09:57
[2020-10-28] MEDS: Amoxicillin 875 MG TAB PO (10:13)
== END 2020-10-28 10:16 | disposition home or self-care (01) ==
PROVIDERS: Emergency Provider Physician Assistant; PCP Nurse Practitioner Family
DX: K04.7 Periapical abscess without sinus (principal)
CPT/HCPCS: 99283

== ENCOUNTER 2021-03-11 05:31 | Emergency (ER) | payer MEDICAID, SELFPAY ==
[2021-03-11 05:39] VITALS: PULSE 11; RESP 18; TEMP 36.1; O2SAT 92
[2021-03-11 05:50] VITALS: BP 140/92
--- NOTE | 2021-03-11 05:56 | ED.GENADUL_ITS ---
Discharge Plan Disposition Patient Disposition: HOME Condition: Good Discharge Details Clinical Impression: Viral URI with cough Primary Care Provider: Ale Gutierrez ED Provider: Diego Kwok Home Meds and New Rx's Prescriptions: Continued ibuprofen 200 mg Capsule 600 mg PO PRN PRNRF: 0 methadone 10 MG/ML concentrate 80 mg PO DAILY RF: 0 Discharge Instructions Instructions: Upper Respiratory Infection (ED) Additional Instructions: At this time you have evidence of a mild upper respiratory infection. It is likely from a virus. You have been tested for coronavirus, we will contact you with the results in the next few days. Please quarantine until results have returned. Please wear a mask and wash your hands regularly. There is no evidence of pneumonia on your exam or the bedside ultrasound. However you do have a mild bit of asthma. Please do your best to stop smoking, and take the inhaler that we gave you to help keep your lungs open. If you have continued, and fever over the next few days and your Covid test is negative you may need repeat evaluation and potential chest x-ray or reassessment to see if your symptoms are transitioning into pneumonia. If your Covid test does return positive, please take a vitamin C supplement, vitamin D, zinc, melatonin, and B complex vitamin supplements as well. If you notice any worsening of your symptoms, or any new symptoms such as vomiting, diarrhea, fever, chills, shortness of breath, chest pain, numbness, weakness, or fainting , please return immediately to the emergency department for reevaluation. Please follow up with your primary care provider as soon as possible for reassessment and reevaluation. As always, it was a pleasure participating in your medical care today. Referrals: Ale Gutierrez [Primary Care Provider] - Medical Decision Making This is a 30-year-old female with past medical history of methadone use, previous IV drug use, regular tobacco use, and ADHD who presents today for evaluation of cough, chills, and potential Covid. Patient states that she has been riding with someone every day, who just tested positive for Covid today. Patient states she has had a mild cough malaise for the last 2 or 3 days. She has lost her smell and taste. She denies any chest pain pleuritic chest pain. No history of blood clots. Denies any vomiting or diarrhea. She denies any headache or neck pain. She also admit to notable amount of stress in her life over the last few days. She denies any other aggravating or relieving factors. No other complaints at this time. Exam is unremarkable, minimal wheeze in the right lung field. No rales or rhonchi. Symptoms consistent with mild bronchitis likely secondary to chronic smoking and viral etiology. Will do Covid testing. No indication for chest x-ray at this time. Bedside ultrasound negative for any B-lines or consolidation. Patient's vital signs stable. Symptoms consistent with severe pneumonia, COPD, or PE or ACS. She has no chest pain. We will give albuterol inhaler for home use, recommend smoking cessation, will do Covid testing. Discussed red flags which to return. No indication for admission or further evaluation at this time. I have extensively reviewed the treatment plan and discharge instructions with the patient. I have addressed all patient concerns at this time. The patient was made aware of what symptoms to monitor for that would warrant a return to the emergency department. Discussed the plan with the patient, they demonstrate verbal understanding and agreement with our assessment and plan at this time. The documentation in this chart was dictated using [employer] dictation software. Please excuse any dictation errors. HPI General Date/Time Provider Initiated Documentation: 03/11/21 05:39 . HPI Narrative: This is a 30-year-old female with past medical history of methadone use, previous IV drug use, regular tobacco use, and ADHD who presents today for evaluation of cough, chills, and potential Covid. Patient states that she has been riding with someone every day, who just tested positive for Covid today. Patient states she has had a mild cough malaise for the last 2 or 3 days. She has lost her smell and taste. She denies any chest pain pleuritic chest pain. No history of blood clots. Denies any vomiting or diarrhea. She denies any hea dache or neck pain. She also admit to notable amount of stress in her life over the last few days. She denies any other aggravating or relieving factors. No other complaints at this time. Related Data Home Medications Medication Instructions Recorded Confirmed ibuprofen 600 mg PO PRN PRN 08/03/18 03/11/21 methadone 80 mg PO DAILY 03/07/19 03/11/21 Allergies Allergy/AdvReac Type Severity Reaction Status Date / Time No Known Allergies Allergy Unverified 03/11/21 05:43 General Stated Complaint: Fever VASYL: 3 Review of Systems All systems reviewed & are unremarkable except as noted in HPI and below PFSH All Active Problems Dental abscess (Acute) Abscess of right breast (Acute) Dental infection (Acute) Viral URI with cough (Acute) Medical History Cellulitis and abscess of left leg Cellulitis of right breast Dental abscess History of intravenous drug abuse Methadone dependence Tobacco abuse Social History Smoking/Tobacco Use Status: Current every day Tobacco Type: cigarettes Smoking risk assessment performed?: Yes Alcohol Intake: current Alcohol Intake frequency: holidays/special occasions only Drug use: Current Sobriety Substance use type: former substance user Details: Methadone clinic Do you feel safe at home: Yes Do you feel safe in your relationship?: Yes Exam Narrative Exam Narrative: 1.Const: Well-nourished, Well-developed, appearing stated age 2.Eyes: PERRL, no conjunctival injection, and symmetrical lids. 3.ENT: Atraumatic external nose and ears. Slightly dry MM. Neck: Symmetric, trachea midline, No thyromegaly. 4.CVS: +S1/S2, No murmurs or gallops. Peripheral pulses 2+ and equal in all extremities. Brisk capillary refill in all extremities. 5.RESP: Unlabored respiratory effort. Clear to auscultation bilaterally. She does have a very minimal wheeze in the right lung field. No crackles or rhonchi. 6.GI: Soft, Nontender/Nondistended, No hepatosplenomegaly. No guarding or rebound. 7.MSK: Normocephalic/Atraumatic, Extremities w/o deformity or ttp No cyanosis or clubbing, Normal movement of all extremities 8.Skin: Warm, Dry. No rashes or lesions. 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 Sensation grossly intact, no focal neurologic deficits. 10.Psych: (AAO) x3. Appropriate mood and affect Course Vital Signs Vital signs: Vital Signs Temperature 36.1 C L 12/19/21 05:39 Pulse 11 L 03/11/21 05:39 Respiratory Rate 18 03/11/21 05:39 Pulse Oximetry 92 03/11/21 05:39 Temperature 36.1 C L 03/11/21 05:39 Pulse 11 L 03/11/21 05:39 Respiratory Rate 18 03/11/21 05:39 Respiratory Effort Non-Labored 03/11/21 05:44 Blood Pressure 140/92 H 03/11/21 05:50 Pulse Oximetry 92 03/11/21 05:39 Pain Level 0 03/11/21 05:39
[2021-03-11] MEDS: Inhaler, Assist Device 1 EACH MC (06:17)
[2021-03-11] MEDS: Albuterol HFA 8 GM 60 PUFF INH IH (06:17)
[2021-03-12 15:44] LABS: COVID-19 RT-PCR UVMMC Result Negative (Negative)
== END 2021-03-11 07:18 | disposition home or self-care (01) ==
PROVIDERS: Emergency Provider Student in an Organized Health Care Education/Training Program; PCP Nurse Practitioner Family
DX: J06.9 Acute upper respiratory infection, unspecified (principal); R05.1 Acute cough; Z20.822 Contact with and (suspected) exposure to COVID-19
CPT/HCPCS: 99284; U0003; 99283

== ENCOUNTER 2021-04-06 00:28 | Emergency (ER) | payer MEDICAID, SELFPAY ==
[2021-04-06 00:37] VITALS: BP 132/68; PULSE 122; RESP 18; TEMP 36.6; O2SAT 96
== END 2021-04-06 00:52 ==
PROVIDERS: PCP Nurse Practitioner Family
DX: R69 Illness, unspecified (principal)

== ENCOUNTER 2021-04-06 09:54 | Emergency (ER) | payer MEDICAID, SELFPAY ==
[2021-04-06 10:07] VITALS: BP 148/91; PULSE 93; RESP 16; TEMP 36.8; O2SAT 92
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
[2021-04-06 10:38] LABS: Bilirubin Negative (Negative); Blood Negative (Negative); Clarity Clear (Clear); Glucose Negative (Negative); Ketones Trace mg/dL (Negative); Leukocyte Esterase Negative (Negative); Nitrite Negative (Negative); Specific Gravity 1.025 (1.005-1.025); Urobilinogen 0.2 EU/dL (Up TO 0.2); pH 6.5 (5-8)
[2021-04-06 10:49] LABS: WBC 0-2 HPF (0-5)
[2021-04-06 10:50] LABS: Bacteria Moderate HPF (Negative); C & S Indicated? No/Sq. Contamination; Casts Negative LPF (Negative); Crystals Negative HPF (Negative); Epithelial Cells Moderate HPF (Negative); Mucus Heavy (Negative); Other Cells Negative (Negative); RBC Negative HPF (0-2)
[2021-04-06 11:13] LABS: Abs Immature Grans 0.04 10^3/uL (0.0-0.06); Absolute Basophil Count 0.03 10^3/uL (0.0-0.2); Absolute Eosinophil Count 0.04 10^3/uL (0.0-0.7); Absolute Lymphocyte Count 1.33 10^3/uL (1.2-3.4); Absolute Monocyte Count 1.04 10^3/uL (0.1-0.8); Basophils % 0.2; Eosinophils % 0.3; HCT 43.8 % (36.0-46.0); HGB 13.7 g/dL (11.2-15.7); Immature Grans % 0.3; Lymphocytes % 10.6; MCH 27.1 pg (27.0-33.0); MCHC 31.3 % (32.0-36.0); MCV 86.6 fL (80-95); MPV 11.1 fL (8.0-11.0); Monocytes % 8.3; Neutrophils % 80.3; Nucleated RBC 0 %; Platelet Count 213 10^3/uL (130-400); RBC 5.06 10^6/uL (3.93-5.22); RDW 14.8 % (11.7-14.6); WBC 12.52 10^3/uL (4.4-10.8)
[2021-04-06 11:14] LABS: Source Nasal/Nares
[2021-04-06 11:15] LABS: *AMPHETAMINES SCREEN URINE Negative (Negative); *BARBITURATES SCREEN URINE Negative (Negative); *BENZODIAZEPINES SCREEN URINE Negative (Negative); Cannabinoids THC Positive (Negative); Cocaine Screen,Urine Positive (Negative); METHADONE URINE SCREEN Positive (Negative); OPIATES URINE SCREEN Positive (Negative)
[2021-04-06 11:17] LABS: Tricyclic Antidepressants Negative (Negative)
[2021-04-06 11:26] LABS: Absolute Neutrophil Count 10.05 10^3/uL (1.2-6.7)
[2021-04-06 11:32] LABS: ALT 15 U/L (14-59); AST 15 U/L (15-37); Albumin 3.4 g/dL (3.4-5.0); Alkaline Phosphatase 89 U/L (46-116); Anion Gap 6.7 mmol/L (3-11); BUN 6 mg/dL (7-18); Bilirubin, Total 0.7 mg/dL (0.2-1.0); CO2 28.3 mmol/L (21.0-32.0); CREATININE 0.7 mg/dL (0.55-1.02); Calcium 9.1 mg/dL (8.5-10.1); Chloride 99 mmol/L (98-107); Glucose 90 mg/dL (74-106); Sodium 134 mmol/L (136-145); Total Protein 7.9 g/dL (6.4-8.2)
[2021-04-06 11:37] LABS: ETHANOL BLOOD < 3.0 mg/dL (<10)
[2021-04-06 11:58] LABS: COVID-19 PCR Negative (Negative)
--- NOTE | 2021-04-06 15:09 | MHPN_ITS ---
Date of service: 04/06/21 Time of Service: 12:50 Mental Health Progress Note Progress Note Progress Note: Presenting Issue: Client arrived at the ED via herself for reoccurring suicidal ideation. Precipitating Factors Client is endorsing SI. At first she denied a plan. Further into the assessment, she disclosed having a previous plan. Disposition * Behavior: Client appeared to be still under the influence of substances as her speech as slow and tangential. *Eye Contact: Client displayed minimal eye contact. *Mood: Clients mood was bad. *Affect: Congruent with mood. *Appetite: Little to no appetite. Client reports this does not bother her. *Sleep(trouble falling/staying asleep): Client reports both sleeping too much and not being able to sleep. Plan(please elaborate and include that physician is consulted with plan and/or placement): Due to lack of supports and safety concerns the client will remain at [facility] for the night. She is currently seeking voluntary psychiatric placement. She will be reassessed tomorrow morning by [facility] for another assessment, after the substances have passed. [facility] are going to come in to have a discussion. Referrals are being made for case management, therapy and psychiatry through [facility]. Clinician's Name , Title, and Signature Palmira Hendricks Fiscal Services Director Make sure that you are photocopying and submitting this to [facility] records Dept. to be scanned into chart.
[2021-04-06] MEDS: cloNIDine 0.1 MG PATCH TD (17:59)
[2021-04-06] MEDS: Amoxicillin 875/Clav. 125 TAB PO (19:35)
[2021-04-07 09:21] VITALS: BP 138/93; PULSE 84; RESP 18; TEMP 37; O2SAT 94
[2021-04-07] MEDS: Amoxicillin 875/Clav. 125 TAB PO ×2 (09:21→19:57)
[2021-04-07] MEDS: Methadone Liquid 10 MG/ML 90 MG PO (10:10)
[2021-04-07] MEDS: Acetaminophen 325 MG TAB (13:43)
--- NOTE | 2021-04-07 13:45 | NUR.NOTE ---
patient asked [facility] for some tylenol for mouth pain. approved and stated to give 650mg of tylenol PO. pulled from [facility] and given to patient. @ [id number]. LOUISC,DIRECTOR PROCESS ENGINEERING,NCP[employer]
--- NOTE | 2021-04-07 15:50 | PDOC.CMSAFED ---
- If Service Date Differs Date of service: 04/07/21 Time of Service: 15:51 Care Management Safety Plan Status: Voluntary - Reason for Wait Reason for Wait: Inpatient Admission VOLUNTARY FOR INPATIENT PSYCHIATRIC STABILIZATION. Estefania has been calm and appropriate throughout the day, she met with Jacqui of [facility] this morning and continues to meet criteria to remain at [facility] per Jacqui's assessment. She napped today and has eaten appropriately and ambulated to bathroom with staff without issue. She has been appropriate in all interactions since arriving at [facility]; demonstrates appropriate coping and communication skills, is articulating her needs and concerns and is fully engaged during staff interactions. Safety plan has been established with patient, and care team, to adhere to patient goals, identify restrictions based on behavioral status, address nutrition, and determine allowed personal belongings, tools for hygiene and personal care. Determine level of activity including ambulation, level of supervision, visitors, and determine privileges based on behaviors and level of engagement by pt. SAFETY PLAN: 1. Will remain on suicide precautions. In Paper Clothes 2. Will remain in room under direct supervision of one-on-one staff at all times provided by [employer]; AILIN, [employer] control supervisor. 3. May have paper cups, plates, finger foods as well as a cardboard spoon with which to eat meals. 4. Follow [facility] Management of the Admitted Behavioral Health Patient policy. 5. Comfort bath system only, shower permitted with escort at RN discretion. 6. No personal belongings-soft items permitted at RN discretion. 7. Visitors-none at this time. 8. Activities: soft cart items approved per RN discretion. 9. Bathroom privileges with escort in the ED, available in room without limitation on M/S. 10. Phone: contact limited to family at this time, via cordless phone at RN discretion. 11. Due to VOLUNTARY status, if patient wishes to leave [facility], staff will contact [facility] Crisis Screener ([phone]) and On-Call Pharmaceutical Officer ([phone]) as soon as possible. In the event of elopement, notify [facility] Police ([phone]). Patient is currently voluntarily at [facility] and seeking inpatient admission when a bed becomes available. [facility] Frontline Melt House Drag Operator will continue seeking placement. Please contact the Shipping Clerk/Admin Pharmaceutical Officer ([phone]) and [facility] Melt House Drag Operator ([phone]) for any needed changes in the Safety Plan. Safety plan has been provided to interdepartmental care team.
[2021-04-07] MEDS: Promethazine 25 MG TAB PO (18:29)
[2021-04-08] MEDS: Methadone Liquid 10 MG/ML 90 MG PO (08:05)
[2021-04-08] MEDS: Amoxicillin 875/Clav. 125 TAB PO (08:05)
[2021-04-08 08:11] VITALS: BP 161/93; PULSE 76; RESP 18; TEMP 36.8; O2SAT 96
[2021-04-08 15:29] LABS: TSH (W/Ref FT4) 0.67 uIU/mL (0.36-3.74)
== END 2021-04-08 12:09 | disposition left against medical advice (07) ==
PROVIDERS: Emergency Provider Physician Assistant; PCP Nurse Practitioner Family
DX: F32.A Depression, unspecified (principal); K04.7 Periapical abscess without sinus; F11.20 Opioid dependence, uncomplicated; R45.851 Suicidal ideations; Z91.52 Personal history of nonsuicidal self-harm; Z53.29 Procedure and treatment not carried out because of patient's decision for other reasons
CPT/HCPCS: 80053; 80307; 81025; 87635; 99285; 80320; 81003; 81015; 84443; 85025; 99284

== ENCOUNTER 2021-04-08 15:27 | Emergency (ER) | payer MEDICAID, SELFPAY ==
[2021-04-08 15:36] VITALS: BP 142/88; PULSE 90; RESP 16; O2SAT 94
[2021-04-08 15:53] LABS: Bilirubin Negative (Negative); Blood Negative (Negative); Clarity Sl Cloudy (Clear); Glucose Negative (Negative); Ketones Trace mg/dL (Negative); Leukocyte Esterase Negative (Negative); Nitrite Negative (Negative); Specific Gravity 1.025 (1.005-1.025); Urobilinogen 0.2 EU/dL (Up TO 0.2); pH 6.5 (5-8)
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
--- NOTE | 2021-04-08 16:03 | NUR.NOTE ---
Nursing Note: v i have a verbal order to sit with patient for patient observation.
--- NOTE | 2021-04-09 08:15 | RT.EKG_ITS ---
APPROVED REPORT Exam: Resting ECG Reason for Exam: QT kunal Patient Location: E HR:56 bpm ECG Measurements Heart Rate 56 AXIS AL 166 P 57 QRSd 86 QRS 33 QT 407 T 54 QTc 395 Conclusion Sinus bradycardia...rate< 60 Probable left atrial enlargement...P >50mS, <-0.10mV V1 sinus bradycardia 56, normal axis, QTC 395, no acute ischemic change
[2021-04-09] MEDS: Methadone Liquid 10 MG/ML 90 MG PO (08:45)
[2021-04-09 09:21] VITALS: BP 118/72; RESP 18; TEMP 36.7; O2SAT 94
--- NOTE | 2021-04-09 11:56 | PDOC.CMSAFED ---
- If Service Date Differs Date of service: 04/09/21 Time of Service: 11:56 Care Management Safety Plan Status: Involuntary - Reason for Wait Reason for Wait: Inpatient Admission INVOLUNTARY FOR INPATIENT PSYCHIATRIC STABILIZATION. CHIEF COMPLAINT: Estefania initially presents at [facility] voluntarily for suicidal ideation. She then elopes from the ED and returns with police on a Warrant for Emergency Examination. Today, Estefania has spent most of her day sleeping. CM meets with her briefly to let her know that she will be meeting with a state psychiatrist this evening for a Second Certification by Psychiatrist. CM assesses her needs, answers her questions and sets expectations. CM will continue to follow. Safety plan has been established to meet the needs of the patient, and consideration of the care team, to adhere to patient goals, identify restrictions based on behavioral status, address nutrition, and determine allowed personal belongings, tools for hygiene and personal care. Determine level of activity including ambulation, level of supervision, visitors, and determine privileges based on behaviors and level of engagement by pt. SAFETY PLAN: 1. Will remain on SI/HI precautions. In Paper Clothes 2. Will remain in room under direct supervision of one-on-one staff at all times provided by [employer], MECHANICAL ENGINEERING DRAFTSPERSON, FREEZING MACHINE OPERATOR reaming machine operator. 3. May have paper cups, plates, finger foods as well as a cardboard spoon with which to eat meals. 4. Follow [facility] Management of the Admitted Behavioral Health Patient policy. 5. Shower permitted with escort at RN discretion. 6. No personal belongings. 7. Visitors: None per [facility] Covid Visiting Policy. 8. Activities: Soft cart items, music tablet, television if available, and other activities at RN discretion. 9. Bathroom privileges with escort while in the ED, available in room without limitation on M/S. 10. Phone: Limited to family and legal contacts at this time, via [facility] hospital phone at RN discretion. 11. Due to INVOLUNTARY status, patient is being held at [facility] by the Department of Mental Health (DM) until 2nd certification by [facility] Psychiatrist can be performed (within 24 hours). Staff will provide de-escalation support (CPI) as needed. If patient wishes to leave [facility], staff will contact [facility] Crisis Screener ([phone]) and On-Call Clinical Lab Technologist ([phone]) as soon as possible. In the event of elopement, notify [facility] Police ([phone]). Patient is currently involuntarily at [facility]. [facility] Frontline Nut Grader will continue seeking placement. Please contact the Breaker Mechanic Clinical Lab Technologist ([phone]) for any needed changes to Safety Plan. Safety plan has been provided to interdepartmental care team. Patient will be transported by flotation tender at time of discharge.
[2021-04-09] MEDS: Acetaminophen 500 MG TAB 1000 MG PO (17:59)
[2021-04-09] MEDS: Amoxicillin 875/Clav. 125 TAB PO (19:21)
[2021-04-09 19:23] VITALS: BP 118/72; PULSE 64; RESP 18; TEMP 36.7; O2SAT 94
== END 2021-04-09 19:23 | disposition home or self-care (01) ==
PROVIDERS: Physician Assistant; Emergency Provider Student in an Organized Health Care Education/Training Program; PCP Nurse Practitioner Family
DX: F32.A Depression, unspecified (principal); K04.7 Periapical abscess without sinus; F17.210 Nicotine dependence, cigarettes, uncomplicated; F11.20 Opioid dependence, uncomplicated
CPT/HCPCS: 81025; 93005; 99285; 81003; 93010; 99283

== ENCOUNTER 2021-04-10 09:14 | Emergency (ER) | payer MEDICAID, SELFPAY ==
[2021-04-10 09:21] VITALS: BP 142/97; PULSE 96; RESP 18; TEMP 37; O2SAT 92
--- NOTE | 2021-04-10 09:28 | ED.GENADUL_ITS ---
Discharge Plan Disposition Patient Disposition: [facility] Condition: Stable Discharge Details Clinical Impression: Suicidal ideation Primary Care Provider: Ale Gutierrez ED Provider: Valentina Arevalo Home Meds and New Rx's Prescriptions: No Action methadone 10 mg/mL Concentrate 90 mg PO DAILY RF: 0 amoxicillin-pot clavulanate [Augmentin] 875-125 mg tablet 1 tab PO BID Qty: 14 RF: 0 ibuprofen 200 mg Capsule 600 mg PO PRN PRNRF: 0 Medical Decision Making 30-year-old female presents to the ER with chief complaint of suicidal ideation. Patient was seen multiple times in the last 4 to 5 days in the ER for suicidal ideation. Patient reports that she went home yesterday on a safety plan and is continuing to have suicidal thoughts. She reports that she having thoughts such as it would be better if I was she is tearful, appears guarded she is calm and cooperative at this time. She does take methadone every day. She reports that she did not take her a.m. dose this morning. She denies any vomiting diarrhea. She does endorse nausea. She reports that she has been oversleeping. Denies any other complaints or associated symptoms. Medical clearance exam ordered. Confirmed with our clinic that patient did not receive her methadone doses remaining. Methadone ordered. And ibuprofen as needed and her previously prescribed Augmentin dose twice daily. CBC shows white blood cell count of 14 8, absolute neutrophils 11.14, urinalysis is negative for nitrates or leukocytes, salicylates 5.3 which is therapeutic range. Urine drug screen is positive for opiates, methadone, cocaine and THC. Spoke with Lashae at [facility] to request Mental Health Evaluation. 1103: Spoke with Elvin with an EKG with 2 states that they will be initiating seeking placement for inpatient care for patient. She has been consistent with suicidal ideation and has the same plan that she has began which include reckless driving and finding a gun. At this time patient is cooperative and involuntary. 1255: Spoke with Dr. Edgar at [place] regarding patient case in detail he verbalizes understanding. He did give the clear for nurse to nurse report. Discussed plan of care for transfer to [place] with patient who verbalizes understanding and is in agreement with plan. She has remained hemodynamically stable and cooperative throughout stay. Patient is to be transferred to [place] in custody of lawn for cement there are expected time of arrival is 1400. HPI General Mode of arrival: ambulatory . Date/Time Provider Initiated Documentation: 04/10/21 09:14 . Limitations to Documentation: no limitations . Information obtained by: patient, RN notes reviewed and old records reviewed . HPI Narrative: 30-year-old female presents to the ER with chief complaint of suicidal ideation. Patient was seen multiple times in the last 4 to 5 days in the ER for suicidal ideation. Patient reports that she went home yesterday on a safety plan and is continuing to have suicidal thoughts. She reports that she having thoughts such as it would be better if I was she is tearful, appears guarded she is calm and cooperative at this time. She does take methadone every day. She reports that she did not take her a.m. dose this morning. She denies any vomiting diarrhea. She does endorse nausea. She reports that she has been oversleeping. Denies any other complaints or associated symptoms. Related Data Home Medications Medication Instructions Recorded Confirmed ibuprofen 600 mg PO PRN PRN 08/03/18 04/10/21 amoxicillin-pot clavulanate 1 tab PO BID #14 tab 04/09/21 04/10/21 [Augmentin] methadone 90 mg PO DAILY 04/09/21 04/10/21 Previous Rx's Medication Instructions Recorded amoxicillin-pot clavulanate 1 tab PO BID #14 tab 04/09/21 [Augmentin] Allergies Allergy/AdvReac Type Severity Reaction Status Date / Time No Known Allergies Allergy Unverified 04/09/21 08:33 General VASYL: 2 Review of Systems All systems reviewed & are unremarkable except as noted in HPI and below PFSH All Active Problems (Updated 04/10/21 @ 13:11 by Valentina Arevalo) Dental abscess (Acute) Abscess of right breast (Acute) Dental infection (Acute) Viral URI with cough (Acute) Depression (Chronic) Depression (Chronic) Suicidal ideation (Acute) Medical History (Updated 04/10/21 @ 13:11 by Valentina Arevalo) Cellulitis and abscess of left leg Cellulitis of right breast Dental abscess History of intravenous drug abuse Methadone dependence Tobacco abuse Social History Smoking/Tobacco Use Status: Current every day Tobacco Type: cigarettes Smoking risk assessment performed?: Yes Alcohol Intake: current Alcohol Intake frequency: holidays/special occasions only Drug use: Current Sobriety Substance use type: opiates Details: Methadone clinic Do you feel safe at home: Yes Do you feel safe in your relationship?: Yes Additional Social history: pt denies using street drugs since leaving the ER last sonali Exam Narrative Exam Narrative: Constitutional: Alert and oriented x3. Appears stated age. Normal body habitus. Head: Normocephalic, no trauma. Eyes: Pupils PERRL, Red reflex noted, EOM's intact. Eyelids symmetrical without lesions, discharge, or swelling. ENT: Bilateral TM's WNL, External ear normal to inspection, no mastoid TTP, swelling, or erythema, Nasal turbinates WNL, no nasal discharge. Normal dentition, Posterior pharynx WNL, no exudate. Chest: RRR, Normal S1, S2, distal pulses intact. Resp: Lungs clear to auscultation bilaterally, no wheezes, rales, or rhonchi. Abdomen: Soft, non-distended, Normoactive bowel sounds all 4 quads. Musculoskeletal: Normal gait, 5/5 strength to all four extremities. Skin: No suspicious rashes or lesions. Capillary refill less than 2 sec. Neurologic: Cranial nerves II-XII intact. Alert and oriented x 3. Motor: No deficits noted. Sensory: Intact bilaterally all 4 extremities. Reflexes: DTR's intact bilaterally.. Hematologic/Lymphatic: No ecchymosis, no lymphadenopathy. Psych Appearance: well kempt Speech and Movement: speech and movement normal Affect: sad Attitude: cooperative Thought Process: normal Thought Content: suicidality Insight: fair Judgment: fair
[2021-04-10 09:55] LABS: Bilirubin Negative (Negative); Blood Negative (Negative); Clarity Clear (Clear); Glucose Negative (Negative); Ketones Negative (Negative); Leukocyte Esterase Negative (Negative); Nitrite Negative (Negative); Urobilinogen 0.2 EU/dL (Up TO 0.2)
[2021-04-10 09:59] LABS: Source Nasal/Nares
[2021-04-10 09:59] LABS: Abs Immature Grans 0.06 10^3/uL (0.0-0.06); Absolute Lymphocyte Count 2.29 10^3/uL (1.2-3.4); Absolute Monocyte Count 1.15 10^3/uL (0.1-0.8); Basophils % 0.3; HCT 45.4 % (36.0-46.0); HGB 14.6 g/dL (11.2-15.7); Immature Grans % 0.4; Lymphocytes % 15.6; MCH 27.2 pg (27.0-33.0); MCHC 32.2 % (32.0-36.0); MCV 84.7 fL (80-95); MPV 10.9 fL (8.0-11.0); Monocytes % 7.8; Neutrophils % 75.9; Nucleated RBC 0 %; Platelet Count 273 10^3/uL (130-400); RBC 5.36 10^6/uL (3.93-5.22); RDW 14.9 % (11.7-14.6); RDW-SD 45.8 fL; WBC 14.68 10^3/uL (4.4-10.8)
[2021-04-10 10:00] LABS: Absolute Basophil Count 0.04 10^3/uL (0.0-0.2); Absolute Neutrophil Count 11.14 10^3/uL (1.2-6.7)
[2021-04-10 10:12] LABS: *AMPHETAMINES SCREEN URINE Negative (Negative); *BARBITURATES SCREEN URINE Negative (Negative); *BENZODIAZEPINES SCREEN URINE Negative (Negative); Cannabinoids THC Positive (Negative); Cocaine Screen,Urine Positive (Negative); METHADONE URINE SCREEN Positive (Negative); OPIATES URINE SCREEN Positive (Negative)
[2021-04-10] MEDS: Methadone Liquid 10 MG/ML 90 MG PO (10:12)
[2021-04-10 10:16] LABS: Tricyclic Antidepressants Negative (Negative)
[2021-04-10] MEDS: Amoxicillin 875/Clav. 125 TAB PO (10:16)
[2021-04-10 10:22] LABS: Salicylate 5.3 mg/dL (<2.8)
[2021-04-10 10:26] LABS: Acetaminophen < 2 ug/mL (10-30)
[2021-04-10 10:28] LABS: ALT 11 U/L (14-59); AST 16 U/L (15-37); Albumin 3.8 g/dL (3.4-5.0); Alkaline Phosphatase 82 U/L (46-116); Anion Gap 9.6 mmol/L (3-11); BUN 10 mg/dL (7-18); Bilirubin, Total 0.3 mg/dL (0.2-1.0); CO2 25.4 mmol/L (21.0-32.0); CREATININE 0.8 mg/dL (0.55-1.02); Calcium 9.5 mg/dL (8.5-10.1); Chloride 99 mmol/L (98-107); Glucose 96 mg/dL (74-106); Potassium 4.2 mmol/L (3.5-5.1); Sodium 134 mmol/L (136-145); TSH (W/Ref FT4) 0.89 uIU/mL (0.36-3.74); Total Protein 8.6 g/dL (6.4-8.2)
[2021-04-10 10:30] LABS: ETHANOL BLOOD < 3.0 mg/dL (<10)
[2021-04-10 10:57] LABS: COVID-19 PCR Negative (Negative)
[2021-04-10 14:27] VITALS: BP 142/97; PULSE 96; RESP 18; TEMP 37; O2SAT 96
--- NOTE | 2021-04-10 15:13 | PDOC.ERCMACT ---
- If Service Date Differs Date of service: 04/10/21 Time of Service: 15:13 Care Management Activity Note DISCHARGE PLAN: Estefania is accepted for a voluntary admission at [facility] for mood stabilization. She will follow up with her PCP, community providers, and plan of care upon discharge from the [place]. Transport to [place] is provided by the [facility].
--- NOTE | 2021-04-11 09:15 | MHPN_ITS ---
Date of service: 04/10/21 Time of Service: 10:40 Mental Health Progress Note Progress Note Progress Note: Presenting Issue:Client presents at [facility] ED with consistent thoughts of suicide. Precipitating Factors Disposition * Behavior: Cooperative *Eye Contact:Minimal *Mood:Depressed *Affect:Congruent with mood *Appetite:Not bothered *Sleep(troubel falling/staying asleep): Yes Plan(please elaborate and include that physician is consulted with plan and/or placement): Client has been accepted to [facility] for in-patient treatment. Clinician's Name , Title, and Signature Elvin Mackenzie BA Make sure that you are photocopying and submitting this to [facility] records Dept. to be scanned into chart.
== END 2021-04-10 14:15 | disposition short-term general hospital (02) ==
PROVIDERS: Emergency Provider Registered Nurse Emergency; PCP Nurse Practitioner Family
DX: F32.A Depression, unspecified (principal); R45.851 Suicidal ideations
CPT/HCPCS: 80053; 80307; 81025; 87635; 99285; 80320; 80329; 81003; 84443; 85025

== ENCOUNTER 2021-04-21 22:40 | Emergency (ER) | payer MEDICAID, SELFPAY ==
[2021-04-21 22:45] VITALS: BP 153/90; PULSE 88; RESP 20; TEMP 37; O2SAT 98
--- NOTE | 2021-04-21 22:46 | W.ED.GENAD ---
Discharge Plan Disposition Patient Disposition: HOME Condition: Good Discharge Details Clinical Impression: Dental infection Primary Care Provider: Ale Gutierrez ED Provider: Diego Kwok Home Meds and New Rx's Prescriptions: New clindamycin HCl [Cleocin HCl] 150 mg capsule 450 mg PO QID 7 Days Qty: 84 RF: 0 Continued methadone 10 mg/mL Concentrate 90 mg PO DAILY RF: 0 ibuprofen 200 mg Capsule 600 mg PO PRN PRNRF: 0 Discontinued amoxicillin-pot clavulanate [Augmentin] 875-125 mg tablet 1 tab PO BID Qty: 14 RF: 0 Discharge Instructions Instructions: Dental Abscess (ED) Additional Instructions: At this time you have an improving but mild infection by your tooth. Please take the antibiotic as directed. Please make sure you are following up closely with your dentist. This antibiotic can cause some GI upset, including diarrhea and please make sure you are taking a yogurt with live culture as well as a probiotic to help prevent. If you notice any worsening of your symptoms, or any new symptoms such as vomiting, diarrhea, fever, chills, shortness of breath, chest pain, numbness, weakness, or fainting , please return immediately to the emergency department for reevaluation. Please follow up with your primary care provider as soon as possible for reassessment and reevaluation. As always, it was a pleasure participating in your medical care today. Referrals: Ale Gutierrez [Primary Care Provider] - Medical Decision Making 30-year-old female presents today for evaluation of dental pain. I originally saw the patient over a week ago at that time for suicidal ideations. Upon my exam the patient also demonstrated evidence of a mild dental infection which she was started on Augmentin for. Unfortunately the patient states that she was not able to complete her medication when she went to a facility or when she was discharged. She states that when she was on the antibiotic it significantly helped, but then symptoms began to worsen when she was off of it. She denies any fever or chills. She did also have a small abscess on her right breast, which also had a similar state of improvement while on antibiotics. She does have a dentist, but is looking for reassessment of her dental infection. Patient denies any difficulty swallowing or drinking. No other complaints at this time. No other modifying factors. Physical exam demonstrates no evidence of dental abscess at this time, but the patient does have notable dental caries. Pain likely secondary to pulpitis secondary to mild infection from previously uncompleted treatment of dental abscess. The patient breast lesion is notably improved and shows no signs of abscess requiring drainage. We will give clindamycin for treatment of the dental carry infection, recommend Tylenol Motrin and close follow-up with dentist. Discussed red flags to return. I have extensively reviewed the treatment plan and discharge instructions with the patient. I have addressed all patient concerns at this time. The patient was made aware of what symptoms to monitor for that would warrant a return to the emergency department. Discussed the plan with the patient, they demonstrate verbal understanding and agreement with our assessment and plan at this time. The documentation in this chart was dictated using [employer] dictation software. Please excuse any dictation errors. HPI General Date/Time Provider Initiated Documentation: 04/21/21 22:43. HPI Narrative: 30-year-old female presents today for evaluation of dental pain. I originally saw the patient over a week ago at that time for suicidal ideations. Upon my exam the patient also demonstrated evidence of a mild dental infection which she was started on Augmentin for. Unfortunately the patient states that she was not able to complete her medication when she went to a facility or when she was discharged. She states that when she was on the antibiotic it significantly helped, but then symptoms began to worsen when she was off of it. She denies any fever or chills. She did also have a small abscess on her right breast, which also had a similar state of improvement while on antibiotics. She does have a dentist, but is looking for reassessment of her dental infection. Patient denies any difficulty swallowing or drinking. No other complaints at this time. No other modifying factors. Related Data Home Medications Medication Instructions Recorded Confirmed ibuprofen 600 mg PO PRN PRN 08/03/18 04/10/21 methadone 90 mg PO DAILY 04/09/21 04/10/21 clindamycin HCl [Cleocin HCl] 450 mg PO QID 7 Days #84 cap 04/21/21 Previous Rx's Medication Instructions Recorded clindamycin HCl [Cleocin HCl] 450 mg PO QID 7 Days #84 cap 04/21/21 Allergies Allergy/AdvReac Type Severity Reaction Status Date / Time No Known Allergies Allergy Unverified 04/09/21 08:33 General VASYL: 2 Review of Systems All systems reviewed & are unremarkable except as noted in HPI and below PFSH All Active Problems Dental abscess (Acute) Abscess of right breast (Acute) Dental infection (Acute) Viral URI with cough (Acute) Depression (Chronic) Depression (Chronic) Suicidal ideation (Acute) Dental infection (Acute) Medical History Cellulitis and abscess of left leg Cellulitis of right breast Dental abscess History of intravenous drug abuse Methadone dependence Tobacco abuse Social History Smoking/Tobacco Use Status: Current every day Tobacco Type: cigarettes Smoking risk assessment performed?: Yes Alcohol Intake: current Alcohol Intake frequency: holidays/special occasions only Drug use: Current Sobriety Substance use type: opiates Details: Methadone clinic Do you feel safe at home: Yes Do you feel safe in your relationship?: Yes Additional Social history: pt denies using street drugs since leaving the ER last sonali Exam Narrative Exam Narrative: 1.Const: Well-nourished, Well-developed, appearing stated age 2.Eyes: PERRL, no conjunctival injection, and symmetrical lids. 3.ENT: Atraumatic external nose and ears. Moist MM. Neck: Symmetric, trachea midline, No thyromegaly. Notable dental caries throughout. Palpation of the mouth of demonstrates no evidence of periapical abscess or drainage at this time. No signs of Ludewig's angina. No signs of airway compromise. 4.CVS: +S1/S2, No murmurs or gallops. Peripheral pulses 2+ and equal in all extremities. Brisk capillary refill in all extremities. 5.RESP: Unlabored respiratory effort. Clear to auscultation bilaterally. No wheezes rales or rhonchi 6.GI: Soft, Nontender/Nondistended, No hepatosplenomegaly. No guarding or rebound. 7.MSK: Normocephalic/Atraumatic, Extremities w/o deformity or ttp No cyanosis or clubbing, Normal movement of all extremities 8.Skin: Warm, Dry. No rashes or lesions. Evaluation of the patient's right breast with performed with female nurse at bedside. Exam demonstrates notably improving previous abscess. No evidence of fluctuance, it is healing well, which is signs of notable improvement. No evidence of abscess requiring incision and drainage at this time. No drainage. No redness, no warmth. 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 Sensation grossly intact, no focal neurologic deficits. 10.Psych: (AAO) x3. Appropriate mood and affect
[2021-04-21] MEDS: Clindamycin 150 MG CAP, 12 CAPS/BTL 450 MG PO (22:53)
== END 2021-04-21 22:57 | disposition home or self-care (01) ==
PROVIDERS: Emergency Provider Student in an Organized Health Care Education/Training Program; PCP Nurse Practitioner Family
DX: K04.7 Periapical abscess without sinus (principal); N61.1 Abscess of the breast and nipple
CPT/HCPCS: 99283

== ENCOUNTER 2021-04-22 08:33 | Emergency (ER) | payer MEDICAID, SELFPAY ==
[2021-04-22 08:41] VITALS: BP 159/91; PULSE 68; RESP 16; TEMP 36.2; O2SAT 96
[2021-04-22] MEDS: Amox. 875/Clav. 125, 2 TABS/BTL 1 TAB PO (08:56)
--- NOTE | 2021-04-22 08:56 | ED.GENADUL_ITS ---
Discharge Plan Disposition Patient Disposition: HOME Condition: Improving Discharge Details Clinical Impression: Antibiotic drug intolerance Primary Care Provider: Ale Gutierrez ED Provider: Brown Easley Home Meds and New Rx's Prescriptions: New amoxicillin-pot clavulanate 875-125 mg tablet 1 tab PO BID 10 Days Qty: 20 RF: 0 Continued methadone 10 mg/mL Concentrate 90 mg PO DAILY RF: 0 ibuprofen 200 mg Capsule 600 mg PO PRN PRNRF: 0 Discontinued clindamycin HCl [Cleocin HCl] 150 mg capsule 450 mg PO QID 7 Days Qty: 84 RF: 0 Discharge Instructions Additional Instructions: Apply moist heat to area of skin that has recovered from infection. Take antibiotics as prescribed for a minimum of 7 days. May use the provided Phenergan if needed for nausea. Return to the emergency department for any acute concerns. Medical Decision Making 30-year-old female presents with consideration for medication intolerance. She had dental infection and right breast for which she was placed on Augmentin and then a course of clindamycin starting yesterday. Sub-1-2 doses of the medication the patient had nausea, mild abdominal pain and one bilious emesis. Her dental infection appears improving as does the breast infection. We discussed a additional 7 days of Augmentin which patient tolerated well in the past. She was given Phenergan for nausea if needed at home. She is stable and appropriate for outpatient management. HPI General Mode of arrival: ambulatory . Date/Time Provider Initiated Documentation: 04/22/21 08:35 . Limitations to Documentation: no limitations . Information obtained by: patient . History of Present Illness 30 year old F presents to the emergency department with the chief complaint of Medication intolerance, described as mild, and is localized to the abdomen. Patient reports no radiation. Patient started experiencing this hour(s) and it has been constant. No relieving factors improve symptom(s), No exacerbating factors reported . Patient notes nausea/vomiting and other (Vomited once. Feels her teeth and breast infection are improving). Related Data Home Medications Medication Instructions Recorded Confirmed ibuprofen 600 mg PO PRN PRN 08/03/18 04/22/21 methadone 90 mg PO DAILY 04/09/21 04/22/21 amoxicillin-pot clavulanate 1 tab PO BID 10 Days #20 tab 04/22/21 Previous Rx's Medication Instructions Recorded amoxicillin-pot clavulanate 1 tab PO BID 10 Days #20 tab 04/22/21 Allergies Allergy/AdvReac Type Severity Reaction Status Date / Time No Known Allergies Allergy Unverified 04/22/21 08:44 General Stated Complaint: Nausea/Vomit/Diar VASYL: 4 Review of Systems Narrative: 6 systems reviewed and otherwise negative PFSH All Active Problems Dental abscess (Acute) Abscess of right breast (Acute) Dental infection (Acute) Viral URI with cough (Acute) Depression (Chronic) Depression (Chronic) Suicidal ideation (Acute) Dental infection (Acute) Antibiotic drug intolerance (Acute) Medical History Cellulitis and abscess of left leg Cellulitis of right breast Dental abscess History of intravenous drug abuse Methadone dependence Tobacco abuse Social History Smoking/Tobacco Use Status: Current every day Tobacco Type: cigarettes Smoking risk assessment performed?: Yes Alcohol Intake: current Alcohol Intake frequency: holidays/special occasions only Drug use: Current Sobriety Substance use type: opiates Details: Methadone clinic Do you feel safe at home: Yes Do you feel safe in your relationship?: Yes Additional Social history: pt denies using street drugs since leaving the ER last sonali Exam Narrative Exam Narrative: GEN: awake, alert, oriented 3. Pleasant, well groomed, interactive. HEAD: Normocephalic, atraumatic ENT: Mucous membranes moist, oropharynx with almost all teeth broken and with dental caries, no significant fluctuance appreciated, External ear exam unremarkable EYES: PERRL, EOMI NECK: Full ROM, no RIGOBERTO, no menigismus CHEST/RESP: Nontender, clear to auscultation bilateral, no wheeze/rhonchi/rales. Note: Examined with nurse in the room. Right breast superolateral to the areola has healed area of scabbed over skin, no erythema or fluctuance. CARDIOVASCULAR: RRR, no murmur, rub buzz. 2+ Rad pulse bilateral EXT: Full ROM, no edema, no rash Neuro: Grossly normal neurologic exam, conversant, interactive. Psych: Speech fluent, thoughts congruent, affect normal forward Course Vital Signs Vital signs: Vital Signs Temperature 36.2 C L 04/22/21 08:41 Pulse 68 04/22/21 08:41 Respiratory Rate 16 04/22/21 08:41 Blood Pressure 159/91 H 04/22/21 08:41 Pulse Oximetry 96 04/22/21 08:41 Temperature 36.2 C L 04/22/21 08:41 Temperature Source Temporal Artery Scan 04/22/21 08:41 Pulse 68 04/22/21 08:41 Respiratory Rate 16 04/22/21 08:41 Respiratory Effort Non-Labored 04/22/21 08:46 Blood Pressure 159/91 H 04/22/21 08:41 Blood Pressure Position Sitting 04/22/21 08:41 Pulse Oximetry 96 04/22/21 08:41 Oxygen Delivery Method Room Air 04/22/21 08:41 Oxygen Flow Rate 0 04/22/21 08:41 Pain Level 5 04/22/21 08:41
== END 2021-04-22 09:00 | disposition home or self-care (01) ==
LOC: ER 09:01
PROVIDERS: Emergency Provider Emergency Medicine; PCP Nurse Practitioner Family
DX: R11.2 Nausea with vomiting, unspecified (principal); R10.9 Unspecified abdominal pain; T36.8X5A Adverse effect of other systemic antibiotics, initial encounter; K04.7 Periapical abscess without sinus
CPT/HCPCS: 99283

== ENCOUNTER 2021-04-24 14:58 | Emergency (ER) | payer MEDICAID, SELFPAY ==
[2021-04-24 15:03] VITALS: BP 148/119; PULSE 115; RESP 20; TEMP 36.3; O2SAT 94
--- NOTE | 2021-04-24 15:33 | ED.GENADUL_ITS ---
Discharge Plan Disposition Patient Disposition: HOME Condition: Stable Discharge Details Clinical Impression: Open wound of right breast Primary Care Provider: Ale Gutierrez ED Provider: Danis Muhammad Home Meds and New Rx's Prescriptions: New sulfamethoxazole-trimethoprim [Bactrim DS] 800-160 mg tablet 1 tab PO BID Qty: 13 RF: 0 Continued methadone 10 mg/mL Concentrate 90 mg PO DAILY RF: 0 ibuprofen 200 mg Capsule 600 mg PO PRN PRNRF: 0 amoxicillin-pot clavulanate 875-125 mg tablet 1 tab PO BID 10 Days Qty: 20 RF: 0 Discharge Instructions Instructions: Abscess (ED) Additional Instructions: Please take full course of both antibiotics as prescribed. Please follow-up with general surgery regarding your chronic open breast wound. Please contact your primary care physician to arrange follow-up. Return to the ER immediately for any worsening or new concerning symptoms. Referrals: [facility] [Provider Group] Ale Gutierrez [Primary Care Provider] - Discharge Data Discharge Date/Time-TO BE ENTERED AT DEPARTURE: 04/24/21 15:49 Medical Decision Making 30-year-old female here with chronic wound from right breast abscess that continues to intermittently drain. No cellulitis. No fluctuance. Wound culture was performed. I will add Bactrim for staph coverage and advised to continue taking full course of Augmentin as prescribed. Plan for discharge with outpatient follow-up with general surgery. HPI General Mode of arrival: ambulatory . Date/Time Provider Initiated Documentation: 04/24/21 15:15 . Limitations to Documentation: no limitations . Information obtained by: patient . HPI Narrative: 30-year-old female with prior right breast abscess, presents with chief complaint of right breast wound. Patient states wound is chronic and continues to have intermittent purulent discharge. Symptoms mild but persistent. She states she has been keeping the wound clean and expressing purulent discharge whenever accumulating. No associated redness. No fever. Patient requesting referral for surgical follow- up. Patient was recently here for dental infection and started on Augmentin which he has been taking for 2 days dental symptoms have improved. Related Data Home Medications Medication Instructions Recorded Confirmed ibuprofen 600 mg PO PRN PRN 08/03/18 04/24/21 methadone 90 mg PO DAILY 04/09/21 04/24/21 amoxicillin-pot clavulanate 1 tab PO BID 10 Days #20 tab 04/22/21 04/24/21 sulfamethoxazole-trimethoprim 1 tab PO BID #13 tab 04/24/21 [Bactrim DS] Previous Rx's Medication Instructions Recorded amoxicillin-pot clavulanate 1 tab PO BID 10 Days #20 tab 04/22/21 sulfamethoxazole-trimethoprim 1 tab PO BID #13 tab 04/24/21 [Bactrim DS] Allergies Allergy/AdvReac Type Severity Reaction Status Date / Time No Known Allergies Allergy Unverified 04/24/21 15:09 General Stated Complaint: RashLesion VASYL: 4 Review of Systems Constitutional Constitutional: Denies fever(s) ENT Comments: Dental infection improved Integumentary/Breasts Skin/Breast: Reports as per HPI, Denies breast pain, Denies erythema and Denies rash PFSH All Active Problems (Updated 04/24/21 @ 15:35 by Danis Muhammad MD) Dental abscess (Acute) Abscess of right breast (Acute) Dental infection (Acute) Viral URI with cough (Acute) Depression (Chronic) Depression (Chronic) Suicidal ideation (Acute) Dental infection (Acute) Antibiotic drug intolerance (Acute) Open wound of right breast (Acute) Medical History (Updated 04/24/21 @ 15:35 by Danis Muhammad MD) Cellulitis and abscess of left leg Cellulitis of right breast Dental abscess History of intravenous drug abuse Methadone dependence Tobacco abuse Social History Smoking/Tobacco Use Status: Current every day Tobacco Type: cigarettes Smoking risk assessment performed?: Yes Alcohol Intake: current Alcohol Intake frequency: holidays/special occasions only Drug use: Current Sobriety Substance use type: opiates Details: Methadone clinic Do you feel safe at home: Yes Do you feel safe in your relationship?: Yes Additional Social history: pt denies using street drugs since leaving the ER last sonali Exam Const General: cooperative Orientation: alert and awake Chest Breast palpation: normal palpation of the breasts (rt) Other: Chronic wound rt breast superior and medial to areola, no fluctuance or induration, exam performed with female nurse business services clerk present Skin Wounds: wounds noted (rt breast) Course Vital Signs Vital signs: Vital Signs Temperature 36.3 C L 04/24/21 15:03 Pulse 115 H 04/24/21 15:03 Respiratory Rate 20 04/24/21 15:03 Blood Pressure 148/119 H 02/01/22 15:03 Pulse Oximetry 94 04/24/21 15:03 Temperature 36.3 C L 04/24/21 15:03 Temperature Source Temporal Artery Scan 04/24/21 15:03 Pulse 115 H 04/24/21 15:03 Respiratory Rate 20 04/24/21 15:03 Respiratory Effort Non-Labored 04/24/21 15:07 Blood Pressure 148/119 H 04/24/21 15:03 Pulse Oximetry 94 04/24/21 15:03 Oxygen Delivery Method Room Air 04/24/21 15:03 Oxygen Flow Rate 0 04/24/21 15:03 Pain Level 3 04/24/21 15:03
--- NOTE | 2021-04-24 15:41 | NUR.NOTE ---
Referral faxed to [facility] for right breast wound; wound culture pending, within 1 week. Sharon Iglesias Nursing Note:
[2021-04-24 15:42] VITALS: BP 155/108; PULSE 107; RESP 19; TEMP 36; O2SAT 96
[2021-04-24] MEDS: Sulfameth/Trimeth DS TAB 1 TAB PO (15:44)
== END 2021-04-24 15:49 | disposition home or self-care (01) ==
PROVIDERS: Emergency Provider Student in an Organized Health Care Education/Training Program; PCP Nurse Practitioner Family
DX: N61.1 Abscess of the breast and nipple (principal)
CPT/HCPCS: 99283; 87070; 87205

== ENCOUNTER 2021-05-31 04:39 | Emergency (ER) | payer MEDICAID, SELFPAY ==
[2021-05-31 04:44] VITALS: BP 172/95; PULSE 62; RESP 20; TEMP 36.6
--- NOTE | 2021-05-31 04:45 | DI.CT_ITS ---
Exam(s) CT ABDOMEN PELVIS W EXAM: CT ABDOMEN PELVIS W INDICATION: mid and right sided abd pain, vomit. COMPARISON: No exams were available for comparison TECHNIQUE: FINDINGS: CT examination of the abdomen and pelvis was performed with a bolus infusion of 100 cc of Omnipaque 3 50. Please note that there was significant motion artifact which degrades image quality. Images obtained through the lung bases are unremarkable. The liver is unremarkable in appearance. Gallbladder and bile ducts are CT normal. Pancreas appears normal. Spleen is unremarkable in appearance. Adrenals appear normal. The kidneys are unremarkable with no evidence of hydronephrosis, nephrolithiasis, or renal mass.. Ur inary bladder unremarkable. Abdominal aorta is of normal diameter and no major vascular abnormality is seen. No abdominal wall hernia. No abdominal or pelvic adenopathy. There is mild free fluid in the pelvis. There is an approximately 5 cm in diameter low-attenuation l eft adnexal mass consistent with an ovarian cyst. Pelvic ultrasound correlation suggested. Uterus u nremarkable in appearance. Right ovary not definitively identified.. Appendix is not identified with certainty but there is no evidence of appendicitis.. No evidence of diverticulitis or bowel obstruction. IMPRESSION: Free pelvic fluid and probable left ovarian cyst. Correlation with pelvic ultrasound recommended.. RADIATION DOSE DELIVERED: 708.89mGy.cm Total DLP 708.89mGy.cm Total DLP !Error CTDIvol RADIATION OPTIMIZATION: All CT scans at this facility use at least one of these dose optimization te chniques: automated exposure control; mA and/or kV adjustment per patient size (includes targeted exa ms where dose is matched to clinical indication); or iterative reconstruction.
--- NOTE | 2021-05-31 04:54 | ED.GENADUL_ITS ---
Discharge Plan Disposition Patient Disposition: HOME Condition: Stable Discharge Details Clinical Impression: Abdominal pain, Nausea & vomiting Primary Care Provider: Ale Gutierrez ED Provider: Chavo Zuluaga Home Meds and New Rx's Prescriptions: New ondansetron 4 mg tablet,disintegrating 4 mg PO Q8H PRN (Reason: nausea and vomiting) Qty: 30 0RF Continued methadone 10 mg/mL Concentrate 90 mg PO DAILY 0RF ibuprofen 200 mg Capsule 600 mg PO PRN PRN0RF Discharge Instructions Instructions: Acute Nausea and Vomiting (ED) Additional Instructions: if you still feel ill next week follow up with your primary care provider return to the emergency department for severe worsening symptoms, if you feel more ill or have severe worsening pain Medical Decision Making 30 yo female with hx of prior substance abuse on methadone and denies any recent drug use and denies alcohol use comes in with 2 days of intermittent n/v with abdominal pain as well intermittent. She denies any fevers though has had chills. She states she had a similar episode a few years ago and was due to a stomach bug. She denies travel, diarrhea, chest pain, vaginal discharge or bleeding. She arrives stable. She has a soft abdomen with tenderness to palpati on to the mid abdomen and also ruq, no guarding or rebound. Her presentation seems consistent with possible food illness vs viral enteritis but given continued symptoms for 2 days will evaluate for pancreatitis and also obtain CT to evaluate for sbo vs cholecystitis. labs benign other than mildly low mag, is feeling better awaiting CT results and has no tenderness now on exam. Is sipping water ct shows nonspecific colitis and left sided 5.1cm ovarian cyst with trace free fluid likely from a ruptured cyst. She denies any pain now and states her pain is mainly when she gets n/v and has not had any pelvic pain so doubt torsion. She is still sipping water, has no abdominal tenderness. She is stable for d/c and advised to f/u with pcp if symptoms continue, return precautions given Differential Diagnosis Differential Diagnosis: viral gastroenteritis, sbo, cholecystitis Medical Records Medical records reviewed: Yes I reviewed the patient's medical records. Imaging Data Radiologic Study: Attestation: I personally reviewed and interpreted this imaging study as follows: Imaging: CT Scan Radiologist's impression: IMPRESSION: 1. Thickened appearance of portions of the colon suspicious for a nonspecific colitis. 2. Trace free pelvic fluid with dominant left-sided ovarian cyst measuring 5.1 cm. Lab Data Lab results reviewed: Yes I reviewed the patient's lab results. HPI General Mode of arrival: ambulatory . Date/Time Provider Initiated Documentation: 05/31/21 04:40 . Limitations to Documentation: no limitations . Information obtained by: patient . History of Present Illness 30 year old F presents to the emergency department with the chief complaint of nausea/vomit, described as moderate, Patient started experiencing this day(s) (2) and it has been intermittent. improves with No relieving factors improve symptom(s), No exacerbating factors reported . Patient notes nausea/vomiting; denies chest pain and shortness of breath. Patient did receive the following treatments prior to arrival, none Related Data Home Medications Medication Instructions Recorded Confirmed ibuprofen 200 mg capsule 600 mg PO PRN PRN 08/03/18 05/31/21 methadone 10 mg/mL oral concentrate 90 mg PO DAILY 04/09/21 05/31/21 ondansetron 4 mg disintegrating 4 mg PO Q8H PRN #30 tab 05/31/21 tablet Previous Rx's Medication Instructions Recorded ondansetron 4 mg disintegrating 4 mg PO Q8H PRN #30 tab 05/31/21 tablet Allergies Allergy/AdvReac Type Severity Reaction Status Date / Time No Known Allergies Allergy Unverified 05/31/21 04:49 General Stated Complaint: Abd Prob VASYL: 3 Review of Systems All systems reviewed & are unremarkable except as noted in HPI and below Constitutional Constitutional: Denies fever(s) and Denies weakness Cardiovascular Cardiovascular: Denies chest pain and Denies dyspnea Respiratory Respiratory: Denies cough and Denies dyspnea Genitourinary Genitourinary: Denies dysuria Musculoskeletal Musculoskeletal: Denies joint swelling Integumentary/Breasts Skin/Breast: Denies rash Neurologic Neurologic: Denies weakness Psychiatric Psychiatric: Denies depression PFSH All Active Problems (Updated 05/31/21 @ 06:10 by Chavo Zuluaga MD) Dental abscess (Acute) Abscess of right breast (Acute) Dental infection (Acute) Viral URI with cough (Acute) Abdominal pain (Acute) Nausea & vomiting (Acute) Medical History (Updated 05/31/21 @ 06:10 by Chavo Zuluaga MD) Cellulitis and abscess of left leg Cellulitis of right breast Dental abscess History of intravenous drug abuse Methadone dependence Tobacco abuse Social History Smoking/Tobacco Use Status: Current every day Tobacco Type: cigarettes Smoking risk assessment performed?: Yes Alcohol Intake: current Alcohol Intake frequency: holidays/special occasions only Drug use: Current Sobriety Substance use type: opiates Details: Methadone clinic Do you feel safe at home: Yes Do you feel safe in your relationship?: Yes Additional Social history: pt denies using street drugs since leaving the ER last sonali Exam Const General: no acute distress Orientation: alert HENMT Head: normal to inspection Ears: external ears normal General nose exam: external nose normal Mouth: moist mucous membranes Eyes General: appearance normal, both eyes and all related structures Neck Neck: normal visual inspection Resp Effort & Inspection: normal respiratory effort and able to speak in complete sentences Cardio Rate: regular rate GI Palpation: soft and tender Skin General skin exam: no rashes or lesions noted Neuro General: patient alert and patient oriented x3 Extrem General: normal to inspection Psych Mental Status: mental status grossly normal Course Vital Signs Vital signs: Vital Signs Temperature 36.6 C 05/31/21 04:44 Pulse 62 05/31/21 04:44 Respiratory Rate 20 05/31/21 04:44 Blood Pressure 172/95 H 05/31/21 04:44 Temperature 36.6 C 05/31/21 04:44 Temperature Source Oral 05/31/21 04:44 Pulse 62 05/31/21 04:44 Respiratory Rate 20 05/31/21 04:44 Respiratory Effort 05/31/21 04:47 Blood Pressure 172/95 H 05/31/21 04:44 Blood Pressure Position Supine 05/31/21 04:44 Oxygen Delivery Method Room Air 05/31/21 04:44 Oxygen Flow Rate 0 05/31/21 04:44 Pain Level 10 05/31/21 04:44
[2021-05-31 05:06] LABS: Abs Immature Grans 0.03 10^3/uL (0.0-0.06); Absolute Basophil Count 0.06 10^3/uL (0.0-0.2); Absolute Eosinophil Count 0.03 10^3/uL (0.0-0.7); Absolute Lymphocyte Count 1.57 10^3/uL (1.2-3.4); Absolute Monocyte Count 0.67 10^3/uL (0.1-0.8); Absolute Neutrophil Count 11.69 10^3/uL (1.2-6.7); Basophils % 0.4; Eosinophils % 0.2; HCT 44.9 % (36.0-46.0); Immature Grans % 0.2; Lymphocytes % 11.2; MCH 26.9 pg (27.0-33.0); MCHC 31.2 % (32.0-36.0); MCV 86.2 fL (80-95); Monocytes % 4.8; Neutrophils % 83.2; Nucleated RBC 0 %; Platelet Count 206 10^3/uL (130-400); RBC 5.21 10^6/uL (3.93-5.22); RDW 16.6 % (11.7-14.6); RDW-SD 52.9 fL; WBC 14.05 10^3/uL (4.4-10.8)
[2021-05-31] MEDS: Ketorolac 15 MG/ML VIAL IVP (05:06)
[2021-05-31] MEDS: Ondansetron 4 MG/2 ML VIAL IVP (05:06)
[2021-05-31] MEDS: Normal Saline 1,000 ML 1000 ML IV (05:06)
[2021-05-31 05:07] LABS: Source Nasal/Nares
[2021-05-31 05:18] LABS: ALT 18 U/L (14-59); AST 20 U/L (15-37); Albumin 3.5 g/dL (3.4-5.0); Alkaline Phosphatase 76 U/L (46-116); Anion Gap 8.8 mmol/L (3-11); BUN 9 mg/dL (7-18); Bilirubin, Direct 0.1 mg/dL (0.0-0.2); Bilirubin, Total 0.3 mg/dL (0.2-1.0); CO2 26.2 mmol/L (21.0-32.0); CREATININE 0.7 mg/dL (0.55-1.02); Calcium 8.6 mg/dL (8.5-10.1); Chloride 105 mmol/L (98-107); Glucose 106 mg/dL (74-106); Lipase 39 U/L (73-393); Magnesium 1.6 mg/dL (1.8-2.4); Potassium 3.6 mmol/L (3.5-5.1); Sodium 140 mmol/L (136-145); Total Protein 7.6 g/dL (6.4-8.2)
[2021-05-31 05:42] LABS: HCG Quant, Pregnancy < 1 mIU/mL (1-3)
[2021-05-31 05:46] LABS: COVID-19 PCR Negative (Negative)
[2021-05-31 06:07] LABS: Bilirubin Negative (Negative); Blood Large (Negative); Clarity Sl Cloudy (Clear); Glucose Negative (Negative); Ketones Negative (Negative); Leukocyte Esterase Negative (Negative); Nitrite Negative (Negative); Urobilinogen 0.2 EU/dL (Up TO 0.2); pH 8.5 (5-8)
[2021-05-31 06:10] LABS: Bacteria Few HPF (Negative); C & S Indicated? No; Casts Negative LPF (Negative); Crystals Negative HPF (Negative); Epithelial Cells Many HPF (Negative); Mucus Negative (Negative); RBC >50 HPF (0-2); WBC 0-2 HPF (0-5)
[2021-05-31] MEDS: Omnipaque 350 MG/ML 100 ML BTL IJ (06:20)
[2021-05-31] MEDS: Normal Saline Flush 10 ML SYR IVP (06:21)
--- NOTE | 2021-05-31 06:26 | DI.VRAD_ITS ---
A PROCEDURE INFORMATION: Exam: CT Abdomen And Pelvis With Contrast Exam date and time: 05/31/2021 4:53 AM Age: 30 years old Clinical indication: Vomiting; Abdominal pain; Localized; Lower; Prior surgery; Surgery date: 6+ months; Surgery type: ; Additional info: Abd pain, emesis, onset several days prior TECHNIQUE: Imaging protocol: Computed tomography of the abdomen and pelvis with contrast. Radiation optimization: All CT scans at this facility use at least one of these dose optimization techniques: automated exposure control; mA and/or kV adjustment per patient size (includes targeted exams where dose is matched to clinical indication); or iterative reconstruction. Contrast material: OMNI 350; Contrast volume: 100 ml; Contrast route: INTRAVENOUS (IV); COMPARISON: US LOWER EXTREMITY VASCULAR LT 08/10/2018 11:19 AM FINDINGS: Liver: Hepatic steatosis is present. Gallbladder and bile ducts: Normal. No calcified stones. No ductal dilation. Pancreas: Normal. No ductal dilation. Spleen: Normal. No splenomegaly. Adrenal glands: Normal. No mass. Kidneys and ureters: Normal. No hydronephrosis. Stomach and bowel: Thickened appearance of portions of the colon suspicious for a nonspecific colitis. Appendix: No evidence of appendicitis. Intraperitoneal space: Unremarkable. No free air. No significant fluid collection. Vasculature: Unremarkable. No abdominal aortic aneurysm. Lymph nodes: Unremarkable. No enlarged lymph nodes. Urinary bladder: Unremarkable as visualized. Reproductive: Trace free fluid is present which is nonspecific but may reflect physiologic fluid or rupture of an ovarian cyst or follicle. Probable dominant ovarian follicular cyst present on the left. This measures 5.1 cm. Bones/joints: Unremarkable. No acute fracture. Soft tissues: Unremarkable. IMPRESSION: 1. Thickened appearance of portions of the colon suspicious for a nonspecific colitis. 2. Trace free pelvic fluid with dominant left-sided ovarian cyst measuring 5.1 cm. Dictated and Authenticated by: Messi Lopez MD. Ordering:ZOLTAN Tony MD
[2021-05-31 06:40] VITALS: BP 168/84; PULSE 54; RESP 18; O2SAT 100
--- NOTE | 2021-06-04 07:39 | NUR.NOTE ---
Message to call er for test results---sglNursing Note:
--- NOTE | 2021-06-04 17:13 | NUR.NOTE ---
Message left with answering service.--Test result mailed to pt.Nursing Note:
== END 2021-05-31 06:39 | disposition home or self-care (01) ==
PROVIDERS: Emergency Provider Emergency Medicine; PCP Nurse Practitioner Family
DX: R11.2 Nausea with vomiting, unspecified (principal); R10.9 Unspecified abdominal pain
CPT/HCPCS: 36415; 80053; 83690; 87635; 96361; 96374; 96375; 99284; 99285; 74177; 81003; 81015; 82248; 83735; 84702; 85025; J1885; J2405; J3490

== ENCOUNTER 2022-12-29 10:37 | Emergency (ER) | payer MEDICAID, SELFPAY ==
[2022-12-29 10:41] VITALS: BP 169/100; PULSE 115; RESP 22; TEMP 36.3; O2SAT 92
--- NOTE | 2022-12-29 10:45 | DI.RAD_ITS ---
Exam(s) XR CHEST 2V PA LATERAL EXAM: XR CHEST 2V PA LATERAL CLINICAL HISTORY: cough TECHNIQUE: 2D digital imaging was performed of the chest. Two images were obtained. PA and lateral views were obtained. COMPARISON: CR CHEST 2 VIEWS PA,LAT from 01/02/2010 FINDINGS: MEDIASTINUM: Normal. HEART: Normal. PULMONARY VASCULATURE: Normal. LUNGS: Note is again made of an azygos lobe which is a normal variant. No focal consolidating infilt rates are seen. PLEURAL SPACE: No pleural effusion or pneumothorax. BONE:Degenerative changes are seen in the midthoracic spine. OTHER FINDINGS:Normal. IMPRESSION: No acute pulmonary findings. DATA REPOSITORY: RADIATION DOSE DELIVERED:
--- NOTE | 2022-12-29 11:00 | ED.GENADUL_ITS ---
Discharge Plan Disposition Patient Disposition: Home Discharge Details Clinical Impression: Viral respiratory illness Primary Care Provider: Ale Gutierrez ED Provider: Mohsen Newby Home Meds and New Rx's Prescriptions: New benzonatate 200 mg capsule 200 mg PO TID PRN (Reason: cough) Qty: 20 0RF prednisone 20 mg tablet 40 mg PO DAILY Qty: 8 0RF albuterol sulfate 90 mcg/actuation aerosol powdr breath activated 1 - 2 inh inhalation Q6H PRN (Reason: shortness of breath or wheezing) Qty: 1 0RF ondansetron 4 mg tablet,disintegrating 4 mg PO Q6H PRN (Reason: nausea and vomiting) Qty: 10 0RF Continued methadone 10 mg/mL Concentrate 90 mg PO DAILY ibuprofen 200 mg Capsule 600 mg PO PRN PRN Discontinued ondansetron 4 mg tablet,disintegrating 4 mg PO Q8H PRN (Reason: nausea and vomiting) Qty: 30 0RF Discharge Instructions Instructions: Viral Syndrome (ED) Additional Instructions: It is important to stay well-hydrated and get plenty of rest during viral illness. If you have any new or significant worsening symptoms feel free to return the emergency department for reassessment otherwise use medication as prescribed. Please follow-up with your primary care provider if not improving in the next week. Stand Alone Forms: Work Release Referrals: Ale Gutierrez [Primary Care Provider] - 1 week (As needed for reassessment or if not improving) Discharge Data Discharge Date/Time-TO BE ENTERED AT DEPARTURE: 12/29/22 14:11 Medical Decision Making Patient presenting to the emergency department for chief complaint of a cold symptoms. Patient reports that 5 days ago she began having a sore throat that then progressed to nasal congestion that then is progressed to cough with some protussive emesis some nausea headaches fatigue and malaise. Patient states that for the past couple days she has not been able to keep down any food or fluids but states that fever and body aches have slightly improved. Patient has a past medical history of IV drug use and methadone dependence along with continuous alcohol abuse. She does state some asthma type symptoms but this is not on her medical history we have. Physical exam is consistent with a viral illness with noted wheezing and some tachycardia no life-threatening or emergent findings are noted. Due to tachycardia nausea vomiting and unable to keep down fluids we will check patient's labs for any electrolyte abnormalities, will perform viral panel for COVID flu and RSV, will perform chest x-ray due to wheezing and will give Tylenol and acetaminophen to help with symptoms along with albuterol. Review of labs does show some leukocytosis with elevated white count neutrophils and monocytes, lactate is only slightly elevated at 1.6, potassium at 3.3 which we will orally replete and labs otherwise noncontributory. Urinalysis shows no signs of infection but is significantly concentrated. Chest x-ray reviewed and shows no signs of pneumonia and is fairly unimpressive. Also reviewed patient's viral panel that is negative for COVID flu and RSV. Patient reassessed and does look significantly better and states that she does feel better. Will discharge patient on Tessalon Perles, albuterol, Zofran and steroid burst and otherwise recommend conservative management of remainder of symptoms. After discussion of diagnosis and plan of care patient has no further needs, questions, or concerns and states clear understanding to return to the emergency department for any worsening symptoms. This documentation was generated using [employer] system, please disregard any oddities of phrase or misspellings. Imaging Data Radiologic Study: Imaging: X-Ray Radiologist's impression: Exam(s) PROCEDURE INFORMATION: Exam: XR Chest Exam date and time: 12/29/2022 1:12 PM Age: 32 years old Clinical indication: Cough TECHNIQUE: Imaging protocol: Radiologic exam of the chest. Views: 2 views. COMPARISON: CT ABDOMEN PELVIS W 05/31/2021 6:05 AM FINDINGS: Lungs: Unremarkable. No consolidation. Pleural spaces: Unremarkable. No pleural effusion. No pneumothorax. Heart/Mediastinum: Unremarkable. No cardiomegaly. Bones/joints: Multiple midthoracic compression fractures of unknown age IMPRESSION: No acute findings. Lab Data Lab results reviewed: Yes I reviewed the patient's lab results. HPI General Mode of arrival: ambulatory . Date/Time Provider Initiated Documentation: 12/29/22 10:45 . Limitations to Documentation: no limitations . Information obtained by: patient and RN notes reviewed . History of Present Illness 32 year old F presents to the emergency department with the chief complaint of Cough, protest of emesis, headaches, body aches, described as moderate, Quality is described as aching, Patient started experiencing this day(s) (5) and it has been constant. No relieving factors improve symptom(s), No exacerbating factors reported . Patient did receive the following treatments prior to arrival, none Related Data Home Medications Medication Instructions Recorded Confirmed ibuprofen 200 mg capsule 600 mg PO PRN PRN 08/03/18 05/31/21 methadone 10 mg/mL oral concentrate 90 mg PO DAILY 04/09/21 05/31/21 albuterol sulfate 90 mcg/actuation 1 - 2 inh inhalation Q6H PRN 12/29/22 breath activated powder inhaler shortness of breath or wheezing #1 ea benzonatate 200 mg capsule 200 mg PO TID PRN cough #20 caps 12/29/22 ondansetron 4 mg disintegrating 4 mg PO Q6H PRN nausea and 12/29/22 tablet vomiting #10 tabs prednisone 20 mg tablet 40 mg PO DAILY #8 tabs 12/29/22 Previous Rx's Medication Instructions Recorded albuterol sulfate 90 mcg/actuation 1 - 2 inh inhalation Q6H PRN 12/29/22 breath activated powder inhaler shortness of breath or wheezing #1 ea benzonatate 200 mg capsule 200 mg PO TID PRN cough #20 caps 12/29/22 ondansetron 4 mg disintegrating 4 mg PO Q6H PRN nausea and 12/29/22 tablet vomiting #10 tabs prednisone 20 mg tablet 40 mg PO DAILY #8 tabs 12/29/22 Allergies Allergy/AdvReac Type Severity Reaction Status Date / Time No Known Allergies Allergy Unverified 05/31/21 04:49 General Stated Complaint: GenMedical VASYL: 3 Review of Systems Constitutional Constitutional: Reports chills, Reports fever(s), Reports headache(s), Reports lethargy, Reports malaise and Reports poor appetite Eyes Eyes: Denies eye discharge ENT Ears, Nose, Mouth, and Throat: Reports as per HPI, Denies otalgia, Reports headache(s), Reports nasal congestion, Reports nasal discharge, Denies neck pain, Reports sore throat and Denies throat swelling Cardiovascular Cardiovascular: Denies chest pain and Denies dyspnea Respiratory Respiratory: Reports cough and Denies dyspnea Gastrointestinal Gastrointestinal: Reports nausea and Reports vomiting Musculoskeletal Musculoskeletal: Denies joint swelling and Denies neck pain Integumentary/Breasts Skin/Breast: Denies rash Neurologic Neurologic: Reports headache(s) Allergic/Immunologic Allergic/Immunologic: Denies throat swelling PFSH All Active Problems (Updated 12/29/22 @ 13:49 by Mohsen Newby NP) Dental abscess (Acute) Abscess of right breast (Acute) Dental infection (Acute) Viral URI with cough (Acute) Viral respiratory illness (Acute) Medical History (Updated 12/29/22 @ 13:49 by Mohsen Newby NP) Cellulitis and abscess of left leg Cellulitis of right breast Dental abscess History of intravenous drug abuse Methadone dependence Tobacco abuse Social History Smoking/Tobacco Use Status: Current every day Tobacco Type: cigarettes Smoking risk assessment performed?: Yes Alcohol Intake: current Alcohol Intake frequency: holidays/special occasions only Drug use: Current Sobriety Substance use type: opiates Details: Methadone clinic Do you feel safe at home: Yes Do you feel safe in your relationship?: Yes Additional Social history: pt denies using street drugs since leaving the ER last sonali Exam Const General: cooperative, comfortable and no acute distress Orientation: alert and awake HENMN Head: normal to inspection, normocephalic and atraumatic Ears: hearing grossly normal bilaterally and TM's normal bilaterally General nose exam: external nose normal Face and sinus: no erythema and sinus tenderness ethmoid and maxillary Mouth: oral mucosae normal, no drooling, no muffled voice and no trismus Throat: posterior oropharynx normal Neck Neck: normal visual inspection, full ROM, no lymphadenopathy, no meningeal signs, trachea midline and supple Resp Effort & Inspection: normal respiratory effort, able to speak in complete sentences and cough Quality of cough: dry Auscultation: wheezes expiratory wheezes Cardio Rate: tachycardic Rhythm: regular rhythm Heart Sounds: S1 normal, S2 normal, normal S1 and S2, no click, no gallops, no murmurs and no rubs Skin General skin exam: no rashes or lesions noted and dry skin (warm) Neuro General: patient alert, patient awake, patient oriented x3, gait normal and moves all extremities Cognition: normal cognition Speech: speech normal Course Vital Signs Vital signs: Vital Signs Temperature 36.3 C L 12/29/22 10:41 Pulse 115 H 12/29/22 10:41 Respiratory Rate 22 12/29/22 10:41 Blood Pressure 169/100 H 12/29/22 10:41 Pulse Oximetry 92 12/29/22 10:41 Temperature 36.3 C L 12/29/22 10:41 Temperature Source Temporal Artery Scan 12/29/22 10:41 Pulse 115 H 12/29/22 10:41 Respiratory Rate 22 12/29/22 10:41 Blood Pressure 169/100 H 12/29/22 10:41 Blood Pressure Position Supine 12/29/22 10:41 Pulse Oximetry 92 12/29/22 10:41 Oxygen Delivery Method Room Air 12/29/22 10:41 Oxygen Flow Rate 0 12/29/22 10:41
[2022-12-29 11:48] LABS: COVID-19 PCR Negative (Negative); Influenza A PCR Negative (Negative); Influenza B PCR Negative (Negative); RSV PCR Negative (Negative)
[2022-12-29 11:51] LABS: Source Nasopharynx
[2022-12-29 11:56] VITALS: BP 143/87; PULSE 94; RESP 20; TEMP 36.8; O2SAT 94
[2022-12-29 11:57] LABS: Abs Immature Grans 0.08 10^3/uL (0.0-0.06); Absolute Basophil Count 0.04 10^3/uL (0.0-0.2); Absolute Eosinophil Count 0.01 10^3/uL (0.0-0.7); Absolute Lymphocyte Count 1.42 10^3/uL (1.2-3.4); Absolute Monocyte Count 0.83 10^3/uL (0.1-0.8); Basophils % 0.3; Eosinophils % 0.1; HCT 42.2 % (36.0-46.0); HGB 13.4 g/dL (11.2-15.7); Immature Grans % 0.6; Lymphocytes % 11.3; MCH 27.7 pg (27.0-33.0); MCHC 31.8 % (32.0-36.0); MCV 87 fL (80-95); MPV 11.4 fL (8.0-11.0); Monocytes % 6.6; Neutrophils % 81.1; Platelet Count 207 10^3/uL (130-400); RBC 4.83 10^6/uL (3.93-5.22); RDW 15.4 % (11.7-14.6); RDW-SD 49.4 fL; WBC 12.54 10^3/uL (4.4-10.8)
[2022-12-29 12:00] LABS: Absolute Neutrophil Count 10.17 10^3/uL (1.2-6.7)
[2022-12-29] MEDS: Normal Saline 1,000 ML 1000 ML IV (12:01)
[2022-12-29] MEDS: ACETAMINOPHEN 1,000 MG/100 ML BTL 400 MG IVPB (12:01)
[2022-12-29] MEDS: Ketorolac 15 MG/ML VIAL IVP (12:01)
[2022-12-29] MEDS: Ondansetron O.D.T. 4 MG TABEF PO (12:01)
[2022-12-29] MEDS: Albuterol 2.5 MG/3 ML INH SOLN VIAL UPD (12:04)
[2022-12-29 12:14] LABS: ALT 18 U/L (14-59); AST 11 U/L (15-37); Albumin 3.1 g/dL (3.4-5.0); Alkaline Phosphatase 108 U/L (46-116); Anion Gap 7.4 mmol/L (3-11); BUN 7 mg/dL (7-18); Bilirubin, Total 0.2 mg/dL (0.2-1.0); CO2 29.6 mmol/L (21.0-32.0); CREATININE 0.9 mg/dL (0.55-1.02); Calcium 9.3 mg/dL (8.5-10.1); Chloride 99 mmol/L (98-107); Estimated GFR 86.03 (mL/min/1.73m2); Glucose 133 mg/dL (74-106); Lipase 12 U/L (16-77); Potassium 3.3 mmol/L (3.5-5.1); Sodium 136 mmol/L (136-145); Total Protein 8.2 g/dL (6.4-8.2)
[2022-12-29 12:39] LABS: Bilirubin Small (Negative); Blood Trace-intact (Negative); Clarity Clear (Clear); Glucose Negative (Negative); Ketones 15 mg/dL (Negative); Leukocyte Esterase Negative (Negative); Nitrite Negative (Negative); Specific Gravity >= 1.030 (1.005-1.025); Urobilinogen 0.2 mg/dL (Up to 0.2); pH 6.5 (5-8)
[2022-12-29] MEDS: POTASSIUM CHLORIDE 20 MEQ, POTASSIUM CHLORIDE 10 MEQ 30 MEQ PO (12:39)
[2022-12-29 12:49] LABS: Bacteria Few HPF (Negative); C & S Indicated? No/Sq. Contamination; Casts 0-2 Coarse Granular LPF (Negative); Crystals Negative HPF (Negative); Epithelial Cells Many HPF (Negative); Mucus Heavy (Negative); WBC 0-2 HPF (0-5)
--- NOTE | 2022-12-29 13:34 | DI.VRAD_ITS ---
PROCEDURE INFORMATION: Exam: XR Chest Exam date and time: 12/29/2022 1:12 PM Age: 32 years old Clinical indication: Cough TECHNIQUE: Imaging protocol: Radiologic exam of the chest. Views: 2 views. COMPARISON: CT ABDOMEN PELVIS W 05/31/2021 6:05 AM FINDINGS: Lungs: Unremarkable. No consolidation. Pleural spaces: Unremarkable. No pleural effusion. No pneumothorax. Heart/Mediastinum: Unremarkable. No cardiomegaly. Bones/joints: Multiple midthoracic compression fractures of unknown age IMPRESSION: No acute findings. Dictated and Authenticated by: Tracey Gutierres MD. Ordering:CRYSTAL Connolly MD
[2022-12-29 14:11] VITALS: BP 110/74; PULSE 80; RESP 12; O2SAT 98
== END 2022-12-29 14:11 | disposition home or self-care (01) ==
PROVIDERS: Emergency Provider Nurse Practitioner Family; PCP Nurse Practitioner Family
DX: J98.8 Other specified respiratory disorders (principal)
CPT/HCPCS: 80053; 81025; 83690; 87637; 94640; 96361; 96374; 96375; 99284; 71046; 81003; 81015; 85025; J0131; J1885; J7613

== ENCOUNTER 2023-06-18 08:53 | Emergency (ER) | payer MEDICAID, SELFPAY ==
[2023-06-18 09:04] VITALS: BP 175/96; PULSE 47; RESP 15; TEMP 36.9; O2SAT 97
[2023-06-18 09:08] VITALS: BP 175/96; PULSE 47; RESP 15; TEMP 36.9; O2SAT 97
--- NOTE | 2023-06-18 09:20 | W.ED.GENAD ---
Discharge Plan Disposition Patient Disposition: Against Medical Advice Condition: Stable Discharge Details Clinical Impression: Nausea vomiting and diarrhea Primary Care Provider: Ale Gutierrez ED Provider: Valentina Arevalo Home Meds and New Rx's Prescriptions: No Action methadone 10 mg/mL Concentrate 90 mg PO DAILY benzonatate 200 mg capsule 200 mg PO TID PRN (Reason: cough) Qty: 20 0RF prednisone 20 mg tablet 40 mg PO DAILY Qty: 8 0RF albuterol sulfate 90 mcg/actuation aerosol powdr breath activated 1 - 2 inh inhalation Q6H PRN (Reason: shortness of breath or wheezing) Qty: 1 0RF ondansetron 4 mg tablet,disintegrating 4 mg PO Q6H PRN (Reason: nausea and vomiting) Qty: 10 0RF ibuprofen 200 mg Capsule 600 mg PO PRN PRN Discharge Instructions Instructions: Acute Nausea and Vomiting (ED) Additional Instructions: At this time you have opted to leave AGAINST MEDICAL ADVICE prior to the completion of your workup. I do not have the CT results back yet. Please follow-up with your primary care provider. You also may not smoke here in the hospital this is a non-smoking campus. Referrals: Ale Gutierrez [Primary Care Provider] - 3 days HPI General Mode of arrival: wheelchair. Date/Time Provider Initiated Documentation: 06/18/23 08:56. Limitations to Documentation: no limitations. Information obtained by: patient, RN notes reviewed and old records reviewed. HPI Narrative: 32 year old female presents to the ED with N/V/D x 3 days. She reports generalized abdominal pain, no masses, guarding on palpation. Past medical history includes history of IV drug abuse, tobacco abuse, methadone dependence, cellulitis and dental abscess. Related Data Home Medications Medication Instructions Recorded Confirmed ibuprofen 200 mg capsule 600 mg PO PRN PRN 08/03/18 05/31/21 methadone 10 mg/mL oral concentrate 90 mg PO DAILY 04/09/21 05/31/21 albuterol sulfate 90 mcg/actuation 1 - 2 inh inhalation Q6H PRN 12/29/22 breath activated powder inhaler shortness of breath or wheezing #1 ea benzonatate 200 mg capsule 200 mg PO TID PRN cough #20 caps 12/29/22 ondansetron 4 mg disintegrating 4 mg PO Q6H PRN nausea and 12/29/22 tablet vomiting #10 tabs prednisone 20 mg tablet 40 mg (2 x 20 mg) PO DAILY #8 tabs 12/29/22 Previous Rx's Medication Instructions Recorded albuterol sulfate 90 mcg/actuation 1 - 2 inh inhalation Q6H PRN 12/29/22 breath activated powder inhaler shortness of breath or wheezing #1 ea benzonatate 200 mg capsule 200 mg PO TID PRN cough #20 caps 12/29/22 ondansetron 4 mg disintegrating 4 mg PO Q6H PRN nausea and 12/29/22 tablet vomiting #10 tabs prednisone 20 mg tablet 40 mg (2 x 20 mg) PO DAILY #8 tabs 12/29/22 Allergies Allergy/AdvReac Type Severity Reaction Status Date / Time No Known Allergies Allergy Unverified 05/31/21 04:49 General Stated Complaint: Nausea/Vomit/Diar VASYL: 3 Review of Systems All systems reviewed & are unremarkable except as noted in HPI and below Gastrointestinal Gastrointestinal: Reports abdominal pain, Reports diarrhea, Reports nausea and Reports vomiting Exam Narrative Exam Narrative: Constitutional: Alert and oriented x3. Appears older than stated age. Normal body habitus. Appears anxious, pressured speech. Head: Normocephalic, no trauma. Eyes: Pupils PERRL, Red reflex noted, EOM's intact. Eyelids symmetrical without lesions, discharge, or swelling. ENT: Bilateral TM's WNL, External ear normal to inspection, no mastoid TTP, swelling, or erythema, Nasal turbinates WNL, no nasal discharge. Normal dentition, Posterior pharynx WNL, no exudate. Chest: RRR, Normal S1, S2, distal pulses intact. Resp: Lungs clear to auscultation bilaterally, no wheezes, rales, or rhonchi. Abdomen: Soft, non-distended, Normoactive bowel sounds all 4 quads. Musculoskeletal: Normal gait, Skin: No suspicious rashes or lesions. Capillary refill less than 2 sec. Neurologic: Cranial nerves II-XII intact. Alert and oriented x 3. Motor: No deficits noted. Sensory: Intact bilaterally all 4 extremities. . Hematologic/Lymphatic: No ecchymosis, no lymphadenopathy. Course Vital Signs Vital signs: Vital Signs Temperature 36.9 C 06/18/23 09:04 Pulse 47 L 06/18/23 09:04 Respiratory Rate 15 06/18/23 09:04 Blood Pressure 175/96 H 06/18/23 09:04 Pulse Oximetry 97 06/18/23 09:04 Temperature 36.9 C 06/18/23 09:08 Temperature Source Oral 06/18/23 09:08 Pulse 47 L 06/18/23 09:08 Respiratory Rate 15 06/18/23 09:08 Respiratory Effort Normal 06/18/23 09:07 Blood Pressure 175/96 H 06/18/23 09:08 Blood Pressure Position Supine 06/18/23 09:08 Pulse Oximetry 97 06/18/23 09:08 Oxygen Delivery Method Room Air 06/18/23 09:08 Oxygen Flow Rate 0 06/18/23 09:08 Pain Level 7 06/18/23 09:08 Medical Decision Making 32 year old female presents to the ED with N/V/D x 3 days. She reports generalized abdominal pain, no masses, guarding on palpation. Past medical history includes history of IV drug abuse, tobacco abuse, methadone dependence, cellulitis and dental abscess. 1222: Patient requesting to leave AMA prior to the completion of her workup, room smells of smoke, also RN reports that she has been drinking out of the sink. Patient wants to leave toget to her methadone appointment. Patient left AMA< prior to receiving her paperwork. IV removed by staff and security called to escort patient off property by RN request. Patient has received Tylenol IV, gram of magnesium, 4 of Zofran liter fluid. No further emesis noted currently. Patient is concerned that she is going to miss her methadone appointment is requesting MRI brain. Encouraged patient change staying for results. She declined at this time. Patient left AGAINST MEDICAL ADVICE. Patient requesting to leave AMA. The patient appears clinically sober and is not under the influence of any known substances. Discussed risks and benefits with patient. Patient verbalizes understanding of situation and the risks of leaving including worsening condition, developing disability, including but not limited to . Discussed results of labs and imaging, if they were performed and recommendations for further treatment and/or observation. The patient verbalizes understanding of the results discussed. Every effort was made to involve family and situation discussed. At this time patient has opted to leave against medical advice. Patient is alert and oriented and has the capacity to make own decisions. This text was generated using [employer] system, please disregard any oddities of phrase or misspellings. Medical Records Medical records reviewed: Yes I reviewed the patient's medical records. Imaging Data Radiologic Study: Imaging: CT Scan Radiologist's impression: CT ABDOMEN PELVIS W EXAM: CT ABDOMEN PELVIS W CLINICAL HISTORY: Abdominal pain. TECHNIQUE: Imaging Protocol: Axial computed tomography images with coronal and sagittal reformatted images were created and reviewed CONTRAST MATERIAL: Intravenous: Omnipaque 350 Contrast volume:100 ml Oral: no COMPARISON: CT CT ABDOMEN PELVIS W from 05/31/2021 FINDINGS: ABDOMEN and PELVIS: Exam mildly limited by motion in the pelvis. Lung Bases: No acute findings. Liver: Normal density. No measurable mass. Gallbladder and biliary tract: No radiodense calculus or biliary dilation. Pancreas: Normal density. No abnormal calcifications or inflammatory process. No evidence of mass. Spleen: Normal. Kidneys: Normal size, contour and axis. No radiodense stones. No obstructive uropathy. No suspicious masses seen. Adrenal glands: No masses seen. Vasculature: Abdominal aorta non-dilated. Soft tissues: Unremarkable. Bladder: No gross wall thickening. No calculi.No focal mass. Bowel: No obstruction. No bowel wall thickening. Very little stool. No evidence of appendicitis. Peritoneal cavity: No ascites. No focal collection or mesenteric inflammatory response. Bones: Unremarkable for age. Reproductive organs: Within normal limits. Lymph nodes: Unremarkable. IMPRESSION:: Unremarkable CT scan of the abdomen and pelvis. Lab Data Lab results reviewed: Yes I reviewed the patient's lab results. Labs: Laboratory Tests Range/Units 06/18/23 06/18/23 10:00 11:40 WBC (4.4-10.8) 10^3/uL 13.02 H RBC (3.93-5.22) 10^6/uL 5.72 H Hgb (11.2-15.7) g/dL 15.9 H Hct (36.0-46.0) % 48.4 H MCV (80-95) fL 85 MCH (27.0-33.0) pg 27.8 MCHC (32.0-36.0) % 32.9 RDW (11.7-14.6) % 15.2 H Plt Count (130-400) 10^3/uL 205 MPV (8.0-11.0) fL 11.3 H Immature Gran % 0.3 Neutrophils % 85.3 Lymphocytes % 10.8 Monocytes % 3.1 Eosinophils % 0.0 Basophils % 0.5 Nucleated RBC % (0.0-0.3) % 0.0 Absolute Neutrophils (1.2-6.7) 10^3/uL 11.11 H Absolute Lymphocytes (1.2-3.4) 10^3/uL 1.41 Absolute Monocytes (0.1-0.8) 10^3/uL 0.40 Absolute Eosinophils (0.0-0.7) 10^3/uL 0.00 Absolute Basophils (0.0-0.2) 10^3/uL 0.07 Sodium (136-145) mmol/L 140 Potassium (3.5-5.1) mmol/L 3.7 Chloride (98-107) mmol/L 104 Carbon Dioxide (21.0-32.0) mmol/L 25.3 Anion Gap (3-11) mmol/L 10.7 BUN (7-18) mg/dL 8 Creatinine (0.55-1.02) mg/dL 0.8 Est GFR (CKD-EPI 2020) (mL/min/1.73m2) 99.09 Glucose (74-106) mg/dL 121 H Calcium (8.5-10.1) mg/dL 9.5 Magnesium (1.8-2.4) mg/dL 1.6 L Total Bilirubin (0.2-1.0) mg/dL 0.3 AST (15-37) U/L 19 ALT (14-59) U/L 17 Alkaline Phosphatase (46-116) U/L 84 Total Protein (6.4-8.2) g/dL 8.2 Albumin (3.4-5.0) g/dL 3.9 Lipase (16-77) U/L 17 Urine Color (Yellow) Yellow Urine Clarity (Clear) Clear Urine pH (5-8) >= 9.0 H Ur Specific [place] (1.005-1.025) 1.020 Urine Protein (Neg-Trace) mg/dL 30 H Urine Ketones (Negative) mg/dL 40 H Urine Blood (Negative) Negative Urine Nitrite (Negative) Negative Urine Bilirubin (Negative) Negative Urine Urobilinogen (Up to 0.2) mg/dL 0.2 Ur Leukocyte Esterase (Negative) Negative Urine RBC (0-2) HPF 0-2 Urine WBC (0-5) HPF 0-2 Ur Epithelial Cells (Negative) HPF Many Urine Crystals (Negative) HPF Negative Urine Bacteria (Negative) HPF Moderate Urine Casts (Negative) LPF Negative Urine Mucus (Negative) Moderate Ur Culture Indicated? No/Sq. Contamination Urine Glucose (Negative) mg/dL Negative Urine Opiates Screen (Negative) Negative Urine Methadone Screen (Negative) Negative Ur Barbiturates Screen (Negative) Negative Ur Tricyclics Screen (Negative) Negative Ur Amphetamines Screen (Negative) Negative U Benzodiazepines Scrn (Negative) Negative Urine Cocaine Screen (Negative) Positive A Ur THC Screen (Negative) Positive A Quality:SDOH Health Related Social Needs: No Data to Display PFSH All Active Problems (Updated 06/18/23 @ 12:25 by Valentina Arevalo NP) Nausea vomiting and diarrhea (Acute) Viral URI with cough (Acute) Dental infection (Acute) Abscess of right breast (Acute) Dental abscess (Acute) Medical History (Updated 06/18/23 @ 12:25 by Valentina Arevalo NP) Cellulitis of right breast Cellulitis and abscess of left leg Dental abscess Methadone dependence History of intravenous drug abuse Tobacco abuse Social History Smoking/Tobacco Use Status: Current every day Tobacco Type: cigarettes Smoking risk assessment performed?: Yes Alcohol Intake: current Alcohol Intake frequency: holidays/special occasions only Drug use: Current Sobriety Substance use type: opiates Details: Methadone clinic Do you feel safe at home: Yes Do you feel safe in your relationship?: Yes Additional Social history: pt denies using street drugs since leaving the ER last sonali
[2023-06-18 10:10] LABS: Abs Immature Grans 0.04 10^3/uL (0.0-0.06); Absolute Basophil Count 0.07 10^3/uL (0.0-0.2); Absolute Lymphocyte Count 1.41 10^3/uL (1.2-3.4); Basophils % 0.5; HCT 48.4 % (36.0-46.0); HGB 15.9 g/dL (11.2-15.7); Immature Grans % 0.3; Lymphocytes % 10.8; MCH 27.8 pg (27.0-33.0); MCHC 32.9 % (32.0-36.0); MCV 85 fL (80-95); MPV 11.3 fL (8.0-11.0); Monocytes % 3.1; Neutrophils % 85.3; Platelet Count 205 10^3/uL (130-400); RBC 5.72 10^6/uL (3.93-5.22); RDW 15.2 % (11.7-14.6); RDW-SD 46.6 fL; WBC 13.02 10^3/uL (4.4-10.8)
[2023-06-18 10:11] LABS: Absolute Neutrophil Count 11.11 10^3/uL (1.2-6.7)
[2023-06-18] MEDS: Ondansetron 4 MG/2 ML VIAL IVP (10:30)
[2023-06-18 10:39] LABS: ALT 17 U/L (14-59); AST 19 U/L (15-37); Albumin 3.9 g/dL (3.4-5.0); Alkaline Phosphatase 84 U/L (46-116); Anion Gap 10.7 mmol/L (3-11); BUN 8 mg/dL (7-18); Bilirubin, Total 0.3 mg/dL (0.2-1.0); CO2 25.3 mmol/L (21.0-32.0); CREATININE 0.8 mg/dL (0.55-1.02); Calcium 9.5 mg/dL (8.5-10.1); Chloride 104 mmol/L (98-107); Estimated GFR 99.09 (mL/min/1.73m2); Glucose 121 mg/dL (74-106); Lipase 17 U/L (16-77); Magnesium 1.6 mg/dL (1.8-2.4); Potassium 3.7 mmol/L (3.5-5.1); Sodium 140 mmol/L (136-145); Total Protein 8.2 g/dL (6.4-8.2)
--- NOTE | 2023-06-18 11:00 | DI.CT_ITS ---
Exam(s) CT ABDOMEN PELVIS W EXAM: CT ABDOMEN PELVIS W CLINICAL HISTORY: Abdominal pain. TECHNIQUE: Imaging Protocol: Axial computed tomography images with coronal and sagittal reformatted images were created and reviewed CONTRAST MATERIAL: Intravenous: Omnipaque 350 Contrast volume:100 ml Oral: no COMPARISON: CT CT ABDOMEN PELVIS W from 05/31/2021 FINDINGS: ABDOMEN and PELVIS: Exam mildly limited by motion in the pelvis. Lung Bases: No acute findings. Liver: Normal density. No measurable mass. Gallbladder and biliary tract: No radiodense calculus or biliary dilation. Pancreas: Normal density. No abnormal calcifications or inflammatory process. No evidence of mass. Spleen: Normal. Kidneys: Normal size, contour and axis. No radiodense stones. No obstructive uropathy. No suspicious masses seen. Adrenal glands: No masses seen. Vasculature: Abdominal aorta non-dilated. Soft tissues: Unremarkable. Bladder: No gross wall thickening. No calculi.No focal mass. Bowel: No obstruction. No bowel wall thickening. Very little stool. No evidence of appendicitis. Peritoneal cavity: No ascites. No focal collection or mesenteric inflammatory response. Bones: Unremarkable for age. Reproductive organs: Within normal limits. Lymph nodes: Unremarkable. IMPRESSION:: Unremarkable CT scan of the abdomen and pelvis. RADIATION DOSE DELIVERED: Total DLP DATA REPOSITORY: All CT scans at this facility are submitted to the National Radiology Data Registry (NRDR) Dose Index Registry (DIR) with the [employer] (ACR). RADIATION OPTIMIZATION: All CT scans at this facility use at least one of these dose optimization te chniques: automated exposure control; mA and/or kV adjustment per patient size (includes targeted exa ms where dose is matched to clinical indication); or iterative reconstruction.
[2023-06-18] MEDS: MAGNESIUM SULFATE 1 GM/100 ML BAG IVPB (11:20)
[2023-06-18] MEDS: Normal Saline - Diluent 50 ML VIAL IV (11:41)
[2023-06-18] MEDS: Omnipaque 350 MG/ML 500 ML BTL-Imaging package IJ (11:42)
[2023-06-18 11:56] LABS: Bilirubin Negative (Negative); Blood Negative (Negative); Clarity Clear (Clear); Glucose Negative (Negative); Ketones 40 mg/dL (Negative); Leukocyte Esterase Negative (Negative); Nitrite Negative (Negative); Urobilinogen 0.2 mg/dL (Up to 0.2); pH >= 9.0 (5-8)
[2023-06-18 12:04] LABS: Bacteria Moderate HPF (Negative); C & S Indicated? No/Sq. Contamination; Casts Negative LPF (Negative); Crystals Negative HPF (Negative); Epithelial Cells Many HPF (Negative); Mucus Moderate (Negative); RBC 0-2 HPF (0-2); WBC 0-2 HPF (0-5)
[2023-06-18 12:08] LABS: *AMPHETAMINES SCREEN URINE Negative (Negative); *BARBITURATES SCREEN URINE Negative (Negative); *BENZODIAZEPINES SCREEN URINE Negative (Negative); Cannabinoids THC Positive (Negative); Cocaine Screen,Urine Positive (Negative); METHADONE URINE SCREEN Negative (Negative); OPIATES URINE SCREEN Negative (Negative)
[2023-06-18 12:09] LABS: Tricyclic Antidepressants Negative (Negative)
--- NOTE | 2023-06-18 13:39 | NUR.NOTE ---
Nursing Note: Pt left AMA. See SQSS
--- NOTE | 2023-06-25 09:10 | NUR.NOTE ---
Nursing Note: Got into chart to make sure that the patient had documentation in the flow sheet that she left AMA.
== END 2023-06-18 12:34 | disposition left against medical advice (07) ==
LOC: ER 12:34
PROVIDERS: Emergency Provider Registered Nurse Emergency; PCP Nurse Practitioner Family
DX: R11.2 Nausea with vomiting, unspecified (principal); R19.7 Diarrhea, unspecified; F17.210 Nicotine dependence, cigarettes, uncomplicated; Z53.29 Procedure and treatment not carried out because of patient's decision for other reasons
CPT/HCPCS: 80053; 80307; 83690; 96365; 96375; 99285; 74177; 81003; 81015; 83735; 85025; 99284; J2405; J3475

== ENCOUNTER 2023-07-28 05:41 | Emergency (ER) | payer MEDICAID, SELFPAY ==
[2023-07-28 05:46] VITALS: BP 168/130; PULSE 123; RESP 16; TEMP 35.8; O2SAT 96
--- NOTE | 2023-07-28 07:17 | ED.GENADUL_ITS ---
Discharge Plan Discharge Details Chief Complaint: GenMedical ED Provider: Bunny Hoyos Home Meds and New Rx's Prescriptions: No Action methadone 10 mg/mL Concentrate 90 mg PO DAILY albuterol sulfate 90 mcg/actuation aerosol powdr breath activated 1 - 2 inh inhalation Q6H PRN (Reason: shortness of breath or wheezing) Qty: 1 0RF HPI General Date/Time Provider Initiated Documentation: 07/28/23 05:48 . HPI Narrative: The patient is a 32-year-old female, with a past medical history significant for IV drug abuse, who presents to the emergency department this evening complaining of right arm pain and swelling. Initially the patient reported an abscess on her right hand which needed to be drained, but when I went in to evaluate the patient she reported that she also had ipsilateral right elbow pain and pulled off her sweatshirt to reveal a markedly erythematous, indurated, and stiff right elbow with what appears to be cellulitic change diffusely in the antecubital fossa. The patient tells me that she also kept a warm heating pad in the antecubital fossa overnight and thinks that she might have burned it with the pad. The patient reports that she has been having chills at home. The patient is having some intermittent nausea and vomiting here in the emergency room although other features of narcotic withdrawal or not as obvious at this time. Related Data Home Medications Medication Instructions Recorded Confirmed methadone 10 mg/mL oral concentrate 90 mg PO DAILY 04/09/21 07/28/23 albuterol sulfate 90 mcg/actuation 1 - 2 inh inhalation Q6H PRN 12/29/22 07/28/23 breath activated powder inhaler shortness of breath or wheezing #1 ea Previous Rx's Medication Instructions Recorded albuterol sulfate 90 mcg/actuation 1 - 2 inh inhalation Q6H PRN 12/29/22 breath activated powder inhaler shortness of breath or wheezing #1 ea Allergies Allergy/AdvReac Type Severity Reaction Status Date / Time No Known Allergies Allergy Unverified 05/31/21 04:49 General Stated Complaint: GenMedical VASYL: 3 Exam Const General: cooperative and anxious Resp Effort & Inspection: normal respiratory effort and able to speak in complete sentences Auscultation: wheezes (Mild scattered wheezes throughout all lung morrow) Cardio Rate: regular rate Rhythm: regular rhythm Heart Sounds: S1 normal and S2 normal Other: No murmur or closing snap GI Inspection: normal to inspection Palpation: soft and nontender Neuro General: patient oriented x3, moves all extremities, normal light touch, pain and propioception and no focal motor deficits Cranial Nerves: CN's II-XI intact bilaterally Extrem Other: There is a 2 x 3 x 2 cm abscess on the dorsal aspect of the right hand close to the thenar eminence articulation. There is a diffusely swollen right elbow joint with cellulitic change measuring approximately 10 x 10 cm emanating from the antecubital fossa. There is a area of pallor centrally measuring approximately 3 x 8 cm. There is diffuse induration surrounding the elbow joint. There is diffuse edematous change circumferentially including the olecranon process. The patient has limited ability to fully extend the joint secondary to pain and swelling. Course Vital Signs Vital signs: Vital Signs Temperature 35.8 C L 07/28/23 05:46 Pulse 123 H 07/28/23 05:46 Respiratory Rate 16 07/28/23 05:46 Blood Pressure 168/130 H 07/28/23 05:46 Pulse Oximetry 96 07/28/23 05:46 Temperature 35.8 C L 07/28/23 05:46 Pulse 123 H 07/28/23 05:46 Respiratory Rate 16 07/28/23 05:46 Respiratory Effort Normal 07/28/23 06:03 Respiratory Depth Normal 07/28/23 06:03 Respiratory Pattern Normal 07/28/23 06:03 Blood Pressure 168/130 H 07/28/23 05:46 Pulse Oximetry 96 07/28/23 05:46 Oxygen Delivery Method Room Air 07/28/23 05:46 Oxygen Flow Rate 0 07/28/23 05:46 Pain Level 6 07/28/23 05:46 Lab/Test Results Lab/Test Results: 07/28/23 06:24 Blood Blood Culture - Pending 07/28/23 06:24 Blood Blood Culture - Pending Medical Decision Making The patient was seen and examined. She clearly has multiple sites of infection in the right upper extremity which are secondary to recurrent IV drug abuse. The patient has multiple track lindquist on both extremities but she clearly has an abscess on the dorsal aspect of the right hand and clearly have some significant infectious process in the right antecubital fossa. Getting an IV and the patient took quite some time and the utilization of an ultrasound by nursing staff. Labs were sent to include white count, cultures, and lactic acid. The patient will be started on IV cefazolin and IV vancomycin for treatment. She will require incision and drainage of the abscess on the back of the right hand. There does not appear to be a clear drainable fluid collection in the right antecubital fossa. I have some concerns that the joint could potentially be infected as well, however the stiffness and difficulty moving it could also be related to the superficial burn and the induration itself. The case will be signed out to the morning provider pending acquisitions of laboratory data and decisions about ongoing management in a shared decision-making capacity with the patient. Quality:SDOH Health Related Social Needs: No Data to Display PFSH All Active Problems (Updated 07/19/23 @ 00:01 by BRITTNEE MAGALLANES) Viral URI with cough (Acute) Dental infection (Acute) Abscess of right breast (Acute) Dental abscess (Acute) Medical History (Updated 07/19/23 @ 00:01 by BRITTNEE MAGALLANES) Cellulitis of right breast Cellulitis and abscess of left leg Dental abscess Methadone dependence History of intravenous drug abuse Tobacco abuse Social History Smoking/Tobacco Use Status: Current every day Tobacco Type: cigarettes Smoking risk assessment performed?: Yes Alcohol Intake: current Alcohol Intake frequency: holidays/special occasions only Drug use: Current Sobriety Substance use type: opiates Details: Methadone clinic Do you feel safe at home: Yes Do you feel safe in your relationship?: Yes Additional Social history: pt denies using street drugs since leaving the ER last sonali
[2023-07-28 07:35] LABS: Lactate 1.1 mmol/L (0.6-1.4)
[2023-07-28] MEDS: Ketorolac 30 MG/ML VIAL IVP (07:35)
[2023-07-28] MEDS: ceFAZolin 2 GM/50 ML BAG IVPB (07:35)
[2023-07-28 07:36] LABS: Abs Immature Grans 0.07 10^3/uL (0.0-0.06); Absolute Basophil Count 0.04 10^3/uL (0.0-0.2); Absolute Eosinophil Count 0.03 10^3/uL (0.0-0.7); Absolute Lymphocyte Count 0.78 10^3/uL (1.2-3.4); Absolute Monocyte Count 0.99 10^3/uL (0.1-0.8); Absolute Neutrophil Count 12.58 10^3/uL (1.2-6.7); Basophils % 0.3 %; Eosinophils % 0.2 %; HCT 44.3 % (36.0-46.0); HGB 14.5 g/dL (11.2-15.7); Immature Grans % 0.5 %; Lymphocytes % 5.4 %; MCHC 32.7 % (32.0-36.0); MCV 86 fL (80-95); MPV 11.2 fL (8.0-11.0); Monocytes % 6.8 %; Neutrophils % 86.8 %; Platelet Count 213 10^3/uL (130-400); RBC 5.18 10^6/uL (3.93-5.22); RDW 13.3 % (11.7-14.6); RDW-SD 41.7 fL; WBC 14.49 10^3/uL (4.4-10.8)
[2023-07-28] MEDS: Lidocaine 4% Cream 5 GM TUBE TP (07:48)
[2023-07-28] MEDS: Ondansetron 4 MG/2 ML VIAL IVP (07:50)
[2023-07-28 08:03] LABS: Anion Gap 8.5 mmol/L (3-11); BUN 5 mg/dL (7-18); CO2 30.5 mmol/L (21.0-32.0); CREATININE 0.8 mg/dL (0.55-1.02); Calcium 9.1 mg/dL (8.5-10.1); Chloride 101 mmol/L (98-107); Estimated GFR 99.09 (mL/min/1.73m2); Glucose 112 mg/dL (74-106); Potassium 3.7 mmol/L (3.5-5.1); Sodium 140 mmol/L (136-145)
--- NOTE | 2023-07-28 08:18 | DI.MRI_ITS ---
Exam(s) MR LIMITED EXAM EXAM: MR LIMITED EXAM CLINICAL HISTORY: abscess v septic thromboplebitis v joint infection. TECHNIQUE: Multiplanar multisequence MRI was performed. A single T1 weighted axial image was obtai tana. Patient was unable to tolerate the examination. COMPARISON: No exams were available for comparison FINDINGS: Significant motion artifact. Edema noted in subcutaneous fat. No gross evidence of a focal collecti on. Marrow signal grossly normal. Dilated anterior superficial veins. IMPRESSION: Nondiagnostic examination. DATA REPOSITORY:
[2023-07-28] MEDS: VANCOMYCIN/WATER (PEG) 1 GM/200 ML BAG IVPB (08:32)
[2023-07-28] MEDS: Normal Saline Flush 10 ML SYR IVP (08:37)
[2023-07-28] MEDS: LORazepam 2 MG/ML VIAL 0.5 MG IVP (11:26)
[2023-07-28 11:32] VITALS: BP 144/96; PULSE 83; RESP 14; O2SAT 94
[2023-07-28] MEDS: LORazepam 2 MG/ML VIAL (12:19)
--- NOTE | 2023-07-28 12:30 | DI.CT_ITS ---
Exam(s) CT UPPER EXTREMITY RT W EXAM: CT UPPER EXTREMITY RT W CLINICAL HISTORY: concern for deep tissue infection antecubital TECHNIQUE: Imaging Protocol: Axial computed tomography images with coronal and sagittal reformatted images were created and reviewed. CONTRAST MATERIAL: Intravenous: Omnipaque 350 Contrast volume:100 mL contrast route:IV - COMPARISON: MR MR LIMITED EXAM from 07/28/2023 FINDINGS: Bones: There is no evidence of fracture or dislocation. Bony alignment is satisfactory. No bony erosions. There is no evidence of joint space narrowing or cystic degeneration seen. Soft Tissues: Edema in the subcutaneous fat. No focal drainable collection. No abnormality visuali zed within the musculature. There is thrombus within the anterior superficial veins at the level of the antecubital fossa extending over approximately 10 centimeter in length. IMPRESSION: No evidence of abscess. No visible deep tissue infection. venous thrombosis is demonstrated in the anterior superficial veins over approximately 10 centimeter length. Findings called to Dr. Wilhelm of the emergency department. RADIATION DOSE DELIVERED: 333.51mGy.cm Total DLP DATA REPOSITORY: All CT scans at this facility are submitted to the National Radiology Data Registry (NRDR) Dose Index Registry (DIR) with the [employer] (ACR). RADIATION OPTIMIZATION: All CT scans at this facility use at least one of these dose optimization te chniques: automated exposure control; mA and/or kV adjustment per patient size (includes targeted exa ms where dose is matched to clinical indication); or iterative reconstruction.
[2023-07-28] MEDS: Omnipaque 350 MG/ML 100 ML BTL IJ (13:13)
[2023-07-28] MEDS: Normal Saline - Diluent 50 ML VIAL IJ (13:15)
--- NOTE | 2023-07-28 14:23 | W.EDPROG ---
Date of service: 07/28/23 Time of Service: 14:23 Medical Decision Making Initial plan was to order MRI to assess for deep space infection of upper extremity however patient did not tolerate MRI due to claustrophobia, was able to tolerate CT upper extremity with contrast which demonstrated thrombophlebitis of superficial veins in the antecubital fossa, no evidence of deep space infection or collection in antecubital fossa. Patient resting comfortably hemodynamically stable heart rate 83 blood pressure 144/96 temperature 36 ?C, saturating 95% on room air. Plan was to admit patient for continued parenteral antibiotics given concern for septic thrombophlebitis related to intravenous drug use. Patient adamant that she does not want to stay in the hospital. Counseled patient regarding the risks of this condition including worsening illness disability and . Again patient does not want to stay and wishes to sign out AGAINST MEDICAL ADVICE. Will provide outpatient antibiotics for her and home care instructions and strict return precautions. Quality:[facility] Health Related Social Needs: No Data to Display Sign Out Sign Out Data: Sign Out Comment: The patient will require follow-up on the labs that were sent to be evaluated with treatment with fluid hydration depending on the lactate level. Blood cultures are pending and IV antibiotics have been ordered to cover both MRSA and MSSA isolates. Shared decision making conversation with the patient regarding admission for further management needs to occur. Last updated by Bunny Hoyos MD at 07/28/23 07:37 Discharge Plan Disposition Patient Disposition: Against Medical Advice Condition: Improving Discharge Details Clinical Impression: Abscess of hand, Thrombophlebitis arm Primary Care Provider: Unknown,Unknown ED Provider: Kevin Wilhelm Home Meds and New Rx's Prescriptions: New clindamycin HCl 300 mg capsule 300 mg PO QID 10 Days Qty: 40 0RF No Action methadone 10 mg/mL Concentrate 90 mg PO DAILY albuterol sulfate 90 mcg/actuation aerosol powdr breath activated 1 - 2 inh inhalation Q6H PRN (Reason: shortness of breath or wheezing) Qty: 1 0RF Discharge Instructions Instructions: Superficial Thrombophlebitis (ED), Abscess (ED) Additional Instructions: Please take antibiotics as prescribed. You will likely need a long course of antibiotics and would benefit from IV antibiotics however given that you are leaving the hospital we will prescribe oral antibiotics for the next week. It is important that you follow-up closely with a primary care physician or return to the emergency department for immediate treatment for worsening or not improving symptoms.
--- NOTE | 2023-07-29 13:51 | NUR.NOTE ---
Addendum entered by Sharon Iglesias 07/29/23 14:34: Letter sent to patient per Dr Flynn to return to the ED due to the positive blood cultures. Original Note: Per lab 1 aerobic bottle positive for gram positive cocci in chains. Dr Flynn notified now. Nursing Note:
--- NOTE | 2023-07-29 14:22 | W.ED.FU ---
Date of service: 07/29/23 Time of Service: 14:22 Follow Up Plan: Attempted to contact patient regarding positive blood cultures, call went to voicemail, voicemail message was left. Will send letter to patient
--- NOTE | 2023-07-30 08:23 | W.ED.FU ---
Date of service: 07/30/23 Time of Service: 08:23 Follow Up Plan: attempted to call patient to discuss positive blood culture, no answer, message left to call back
== END 2023-07-28 15:02 | disposition left against medical advice (07) ==
PROVIDERS: Emergency Medicine Emergency Medical Services; Emergency Provider Emergency Medicine
DX: I80.8 Phlebitis and thrombophlebitis of other sites (principal); M79.601 Pain in right arm; L02.511 Cutaneous abscess of right hand; M25.521 Pain in right elbow; R11.2 Nausea with vomiting, unspecified; F19.10 Other psychoactive substance abuse, uncomplicated; Z53.29 Procedure and treatment not carried out because of patient's decision for other reasons
CPT/HCPCS: 00123; 36415; 76498; 80048; 87040; 87077; 96365; 96366; 96367; 96375; 96376; 99285; 73201; 83605; 85025; 87070; 87186; 87205; 99283; J0690; J1885; J2060; J2405; J3372; J3490

== ENCOUNTER 2023-07-30 13:25 | Observation (INO) | payer MEDICAID, SELFPAY ==
[2023-07-30] VITALS (7 sets, daily range): BP systolic 99–127; BP diastolic 53–87; PULSE 69–91; RESP 14–18; TEMP 36.8–37.5; O2SAT 95–98
--- NOTE | 2023-07-30 14:17 | ED.GENADUL_ITS ---
Discharge Plan Disposition Patient Disposition: Admit to [facility] Condition: Stable Discharge Details Chief Complaint: Cellulitis Clinical Impression: Bacteremia, Thrombophlebitis arm Primary Care Provider: Unknown,Unknown ED Provider: Kevin Wilhelm Home Meds and New Rx's Prescriptions: No Action methadone 10 mg/mL Concentrate 90 mg PO DAILY albuterol sulfate 90 mcg/actuation aerosol powdr breath activated 1 - 2 inh inhalation Q6H PRN (Reason: shortness of breath or wheezing) Qty: 1 0RF clindamycin HCl 300 mg capsule 300 mg PO QID 10 Days Qty: 40 0RF clindamycin HCl 300 mg capsule 300 mg PO QID 10 Days Qty: 40 0RF HPI General Date/Time Provider Initiated Documentation: 07/30/23 13:27 . HPI Narrative: 32-year-old female history of IV drug use, diagnosed with septic thromboph lebitis of right upper extremity 2 days ago, patient was advised to remain in the hospital for IV antibiotics and further treatment however she left AGAINST MEDICAL ADVICE. Was given oral clindamycin and strict return precautions, call back yesterday given positive blood cultures. Patient Dors is diaphoresis, no fever. Took Tylenol before arrival. Does endorse increased pain and swelling in her right arm Related Data Home Medications Medication Instructions Recorded Confirmed methadone 10 mg/mL oral concentrate 90 mg PO DAILY 04/09/21 07/30/23 albuterol sulfate 90 mcg/actuation 1 - 2 inh inhalation Q6H PRN 12/29/22 07/30/23 breath activated powder inhaler shortness of breath or wheezing #1 ea clindamycin HCl 300 mg capsule 300 mg PO QID 10 days #40 caps 07/28/23 07/30/23 clindamycin HCl 300 mg capsule 300 mg PO QID 10 days #40 caps 07/28/23 07/30/23 Previous Rx's Medication Instructions Recorded albuterol sulfate 90 mcg/actuation 1 - 2 inh inhalation Q6H PRN 12/29/22 breath activated powder inhaler shortness of breath or wheezing #1 ea clindamycin HCl 300 mg capsule 300 mg PO QID 10 days #40 caps 07/28/23 clindamycin HCl 300 mg capsule 300 mg PO QID 10 days #40 caps 07/28/23 Allergies Allergy/AdvReac Type Severity Reaction Status Date / Time No Known Allergies Allergy Unverified 07/30/23 13:29 General Stated Complaint: Cellulitis VASYL: 3 Review of Systems Narrative: Review of Systems Constitutional: negative Eyes: negative ENT: negative Cardiovascular: negative Respiratory: negative Gastrointestinal: negative : negative Musculoskeletal: Arm swelling, arm pain Skin: Arm swelling or pain Neurologic: negative Psych: negative Exam Narrative Exam Narrative: Physical Examination General: alert, awake, cooperative, uncomfortable, diaphoretic HEENT: normocephalic, atraumatic; PERRL, EOM intact, conjunctiva normal; no nasal discharge; moist mucous membranes, oral and pharyngeal mucosa normal, tolerating secretions Neck: supple, trachea midline; full ROM Chest: normal to inspection Respiratory: normal respiratory effort, speaking in full sentences, clear to auscultation, no wheezing, rales or rhonchi Cardiac: regular rate, regular rhythm, S1S2 intact, no murmurs rubs or gallops GI: abdomen soft, non-tender, non-distended; no palpable mass or hepatosplenomegaly Skin: Large area of induration extending from antecubital fossa right upper extremity to mid humeral region, erythematous warm, no palpable crepitus, small area of spontaneous serous drainage medial aspect of antecubital fossa Neuro: AAOx3, normal speech, moving all extremities Extremities: See skin; warm well-perfused strong radial pulse sensation intact flexion extension fingers intact flexion extension wrist intact, full extension at elbow limited by pain and edema Psych: Appropriate mood and affect Course Vital Signs Vital signs: Vital Signs Temperature 36.9 C 07/30/23 13:31 Pulse 69 07/30/23 13:31 Respiratory Rate 18 07/30/23 13:31 Blood Pressure 121/79 07/30/23 13:31 Pulse Oximetry 95 07/30/23 13:31 Temperature 36.9 C 07/30/23 13:42 Temperature Source Oral 07/30/23 13:42 Pulse 69 07/30/23 13:42 Respiratory Rate 18 07/30/23 13:42 Respiratory Effort Normal, Non-Labored 07/30/23 13:32 Blood Pressure 121/79 07/30/23 13:42 Blood Pressure Position Sitting 07/30/23 13:42 Pulse Oximetry 95 07/30/23 13:42 Oxygen Delivery Method Room Air 07/30/23 13:42 Oxygen Flow Rate 0 07/30/23 13:42 Pain Level 10 07/30/23 13:42 Lab/Test Results Lab/Test Results: 07/30/23 14:00 Blood Blood Culture - Pending 07/30/23 14:00 Blood Blood Culture - Pending Medical Decision Making 32-year-old female history of IV drug use presents with worsening signs and symptoms of previously diagnosed septic thrombophlebitis, patient had left AGAINST MEDICAL ADVICE during last visit was started on clindamycin, patient now amenable to medical treatment, evidence of worsening induration and erythema to right upper extremity, neurovascular exam of limb intact, range of motion at elbow limited by pain and swelling. Will start IV and contralateral arm, will initiate broad-spectrum antibiotics, will repeat blood cultures labs, will perform screening x-ray to assess for subcutaneous gas, prior images CT MRI are in our system. Touch base with general surgery here to discuss possible treatment at [facility] however given extent of thrombus and infection will contact [facility] for potential transfer. Will likely discuss case with vascular team. Will initiate heparin given extent of clot as well as edema and discomfort 16: 00 department does not have any availability for transfer, discussed case with vascular surgical team at [facility] who recommend supportive care for the thrombophlebitis however given description of purulent drainage developing at antecubital fossa there is a possible need that this might need to be opened up at this juncture from a vascular standpoint there is no indication for thrombectomy. Will attempt to contact the surgical team at [facility] for availability for transfer. 18: 16 Dr. Ocasio of vascular surgery at [facility] was contacted by the transfer center, Dr. Ocasio declined to take consult as this is not a vascular case. Will discuss case further with our general surgical team here and at [facility] 19: 31 Dr. Ball of general surgery will admit patient for further management. Will continue with antibiotics, heparin infusion running. Patient resting comfortably no acute distress Quality:SDOH Health Related Social Needs: Health related social needs risk of homeless, food ins ecurity, transpo insecurity PFSH All Active Problems (Updated 07/30/23 @ 19:32 by Kevin Wilhelm MD) Thrombophlebitis arm (Acute) Bacteremia (Acute) Thrombophlebitis arm (Acute) Abscess of hand (Acute) Viral URI with cough (Acute) Dental infection (Acute) Abscess of right breast (Acute) Dental abscess (Acute) Medical History (Updated 07/30/23 @ 19:32 by Kevin Wilhelm MD) Cellulitis of right breast Cellulitis and abscess of left leg Dental abscess Methadone dependence History of intravenous drug abuse Tobacco abuse Social History Smoking/Tobacco Use Status: Current every day Tobacco Type: cigarettes Smoking risk assessment performed?: Yes Alcohol Intake: current Alcohol Intake frequency: holidays/special occasions only Drug use: Current Sobriety Substance use type: opiates Details: Methadone clinic Do you feel safe at home: Yes Do you feel safe in your relationship?: Yes Additional Social history: pt denies using street drugs since leaving the ER last sonali
[2023-07-30 14:32] LABS: Lactate 1.3 mmol/L (0.6-1.4)
[2023-07-30 14:33] LABS: HGB 14.3 g/dL (11.2-15.7); MCH 27.8 pg (27.0-33.0); MCHC 32.5 % (32.0-36.0); MCV 85 fL (80-95); MPV 11.3 fL (8.0-11.0); Platelet Count 270 10^3/uL (130-400); RBC 5.15 10^6/uL (3.93-5.22); RDW 13.9 % (11.7-14.6)
[2023-07-30] MEDS: CEFEPIME 2 GM in Normal Saline 100 ML IVPB (14:35)
[2023-07-30 14:47] LABS: INR 1.1 (0.9-1.1); PTT Activated 36.5 sec (23.6-32.8); Prothrombin Time 11.3 sec (9.1-11.1)
[2023-07-30 14:54] LABS: ALT 23 U/L (14-59); AST 19 U/L (15-37); Absolute Eosinophil Count 0.14 10^3/uL (0.0-0.7); Absolute Lymphocyte Count 2.32 10^3/uL (1.2-3.4); Absolute Monocyte Count 1.09 10^3/uL (0.1-0.8); Absolute Neutrophil Count 10.09 10^3/uL (1.2-6.7); Albumin 2.7 g/dL (3.4-5.0); Alkaline Phosphatase 101 U/L (46-116); Anion Gap 9.1 mmol/L (3-11); Atypical Lymphocytes % 1 %; BUN 9 mg/dL (7-18); Bilirubin, Total 0.4 mg/dL (0.2-1.0); CO2 28.9 mmol/L (21.0-32.0); Calcium 8.9 mg/dL (8.5-10.1); Chloride 101 mmol/L (98-107); Estimated GFR 75.81 (mL/min/1.73m2); Glucose 109 mg/dL (74-106); Potassium 3.9 mmol/L (3.5-5.1); Sodium 139 mmol/L (136-145); Total Protein 8.1 g/dL (6.4-8.2); WBC 13.63 10^3/uL (4.4-10.8)
[2023-07-30 14:55] LABS: Diff Comment Manual Differential; RBC Morphology Normal
--- NOTE | 2023-07-30 15:35 | DI.RAD_ITS ---
Exam(s) XR FOREARM RT EXAM: XR FOREARM RT CLINICAL HISTORY: septic thrombophlebitis arm, IV drug use. TECHNIQUE: 2D digital imaging was performed. Two views. COMPARISON: CR XR HUMERUS RT from 07/30/2023 FINDINGS: BONES: No acute fracture is present. No bony destructive lesion is seen. Visualized portion of elbow and wrist joints are unremarkable. SOFT TISSUE: Diffuse subcutaneous edema. No foreign body. No abnormal gas collection. IMPRESSION: Soft tissue edema. DATA REPOSITORY: RADIATION DOSE DELIVERED:
--- NOTE | 2023-07-30 15:35 | DI.RAD_ITS ---
Exam(s) XR HUMERUS RT EXAM: XR HUMERUS RT CLINICAL HISTORY: septic thrombophlebitis, IV drug user. TECHNIQUE: 2D digital imaging was performed. COMPARISON: No exams were available for comparison FINDINGS: BONES: No acute fracture is present. No bony destructive lesion is seen. Visualized portion of elbow and shoulder joints are unremarkable. SOFT TISSUE: medial edema. No abnormal gas collection or foreign body. IMPRESSION: Soft tissue edema. DATA REPOSITORY: RADIATION DOSE DELIVERED:
[2023-07-30] MEDS: Heparin in 0.45% NaCl 25,000 UNIT/250 ML BAG 14 UNIT IV (15:50)
[2023-07-30] MEDS: Normal Saline 1,000 ML 1000 ML IV (15:57)
[2023-07-30] MEDS: VANCOMYCIN/WATER (PEG) 1.5 GM/300 ML BAG IVPB (15:57)
[2023-07-30] MEDS: Ketorolac 15 MG/ML VIAL IVP (16:53)
--- NOTE | 2023-07-30 19:24 | HPE_ITS ---
Date of service: 07/30/23 Time of Service: 19:26 Assessment and Plan Assessment and plan (1) Thrombophlebitis arm: Status: Acute Assessment and plan: This certainly does seem consistent with septic thrombophlebitis right upper extremity. I was able to review the CAT scan performed a few days ago, and agree that there is thrombosis of the superficial veins and cellulitis of the surrounding soft tissue. It appears that the clot burden extends into the basilic vein deep to the fascia. I explained that the mainstay of therapy here is intravenous antibiotics, and that although the role of therapeutic anticoagulation has been debated in some settings, given the extensive thrombosis in her arm, I think it is indicated in this case. I explained the role of surgery with excision of the vein, however given the extent of the clot burden through the arm, this would certainly go up into the basilic vein, and I do have some concerns regarding manipulation of the deep vein. For now, we will continue with intravenous antibiotics and anticoagulation reassess the arm over the next day or so. It seems like the exam is fairly consistent today relative to her presentation 2 days ago. I suppose that is reassuring. I will also order an echocardiogram to rule out endocarditis, and formally ultrasound the vein to better understand the extent of the clot burden. If there is no improvement in the next day or 2, or certainly if there is any worsening of her symptoms, then we may need to give stronger consideration to surgery, or more likely transfer to a tertiary care center with better vascular support. History of Present Illness History of Present Illness Chief Complaint: Right arm pain Narrative: Estefania is a 32-year-old woman with past medical history significant for intravenous drug abuse. She came to the emergency department 2 days ago with a chief complaint of an abscess in her right hand just distal to the wrist. During evaluation, it was noted that she had a large area of erythema around the right antecubital fossa extending up onto the medial aspect of the biceps. Blood cultures were obtained, she underwent a CT scan of the arm that demonstrated superficial vein thrombosis of the antecubital veins extending up towards the humerus approximately 10 cm in length. She was advised to be admitted to the hospital for intravenous antibiotics but left AGAINST MEDICAL ADVICE. After she left, her blood cultures came back positive for strep species as well as gram-negative coccobacilli. She came back to the emergency department today with increasing pain and swelling, and some spontaneous drainage through wound in the antecubital fossa. She was dosed with Vanco and cefepime. Physicians in the emergency department consulted with vascular surgery at [facility], and attempted to contact [facility], but neither facility is able to accommodate her. Review of Systems Constitutional Constitutional: Denies chills, Reports fatigue, Denies fever(s) and Reports lethargy Eyes Eyes: Reports system reviewed and no additional complaints, except as documented ENT Ears, Nose, Mouth, and Throat: Reports system reviewed and no additional complaints, except as documented Cardiovascular Cardiovascular: Denies chest pain and Denies dyspnea Respiratory Respiratory: Denies chest congestion, Denies cough and Denies dyspnea Gastrointestinal Gastrointestinal: Reports system reviewed and no additional complaints, except as documented Musculoskeletal Musculoskeletal: Reports joint swelling Comments: Right arm pain around the elbow Neurologic Neurologic: Reports system reviewed and no additional complaints, except as documented Psychiatric Psychiatric: Reports system reviewed and no additional complaints, except as documented Endocrine Endocrine: Reports fatigue Hematologic/Lymphatic Hematologic/Lymphatic: Denies easy bleeding and Denies easy bruising PFSH All Active Problems (Updated 07/30/23 @ 19:32 by Kevin Wilhelm MD) Thrombophlebitis arm (Acute) Bacteremia (Acute) Thrombophlebitis arm (Acute) Abscess of hand (Acute) Viral URI with cough (Acute) Dental infection (Acute) Abscess of right breast (Acute) Dental abscess (Acute) Medical History (Updated 07/30/23 @ 19:32 by Kevin Wilhelm MD) Cellulitis of right breast Cellulitis and abscess of left leg Dental abscess Methadone dependence History of intravenous drug abuse Tobacco abuse Social History Smoking/Tobacco Use Status: Current every day Tobacco Type: cigarettes Smoking risk assessment performed?: Yes Alcohol Intake: current Alcohol Intake frequency: holidays/special occasions only Drug use: Current Sobriety Substance use type: opiates Details: Methadone clinic Do you feel safe at home: Yes Do you feel safe in your relationship?: Yes Additional Social history: pt denies using street drugs since leaving the ER last sonali Meds Allergies and Home Medications Allergies Allergy/AdvReac Type Severity Reaction Status Date / Time No Known Allergies Allergy Unverified 07/30/23 13:29 Home Medications Medication Instructions Recorded Confirmed Type methadone 10 mg/mL oral concentrate 90 mg PO DAILY 04/09/21 07/30/23 History albuterol sulfate 90 mcg/actuation 1 - 2 inh inhalation Q6H PRN 12/29/22 07/30/23 Rx breath activated powder inhaler shortness of breath or wheezing #1 ea clindamycin HCl 300 mg capsule 300 mg PO QID 10 days #40 caps 07/28/23 07/30/23 Rx clindamycin HCl 300 mg capsule 300 mg PO QID 10 days #40 caps 07/28/23 07/30/23 Rx Exam Const General: cooperative and comfortable Nutritional Appearance: overweight Orientation: alert, awake and oriented x3 HENMT Head: normal to inspection Eyes General: appearance normal, both eyes and all related structures Neck Neck: normal visual inspection, full ROM, no lymphadenopathy and supple Resp Auscultation: clear to auscultation bilaterally Cardio Jugular venous pressure: no JVD Rate: regular rate Rhythm: regular rhythm Heart Sounds: S1 normal, S2 normal and no murmurs GI Inspection: normal to inspection Skin Other: There is tender erythema with induration of the right antecubital fossa extending up to the midportion of the upper arm. Pulse motor and sensation in the hand are all normal. There are some seropurulent discharge from the wound in the antecubital fossa Extrem General: normal to inspection and full ROM Right upper extremity: edema, shoulder/upper arm Details: tenderness, swelling and warmth; no crepitus, elbow/forearm Details: tenderness, swelling, warmth and distal pulses intact and hand Details: normal to inspection Results Labs 07/30/23 14:26 07/30/23 14:26 Labs: Laboratory Results - last 24 hr 07/30/23 14:26 WBC 13.63 H RBC 5.15 Hgb 14.3 Hct 44.0 MCV 85 MCH 27.8 MCHC 32.5 RDW 13.9 Plt Count 270 MPV 11.3 H Immature Gran % 0.0 Neutrophils % 74.0 Lymphocytes % 16.0 Atypical Lymphs % 1 Monocytes % 8.0 Eosinophils % 1.0 Basophils % 0.0 Nucleated RBC % 0.0 Absolute Neutrophils 10.09 H Absolute Lymphocytes 2.32 Absolute Monocytes 1.09 H Absolute Eosinophils 0.14 Absolute Basophils 0.00 RBC Morphology Normal PT 11.3 H INR 1.1 APTT 36.5 H VBG Lactate 1.3 Sodium 139 Potassium 3.9 Chloride 101 Carbon Dioxide 28.9 Anion Gap 9.1 BUN 9 Creatinine 1.0 Est GFR (CKD-EPI 2020) 75.81 Glucose 109 H Calcium 8.9 Total Bilirubin 0.4 AST 19 ALT 23 Alkaline Phosphatase 101 Total Protein 8.1 Albumin 2.7 L Last Vital Signs Temp 98.6 F 07/30/23 18:14 Pulse 81 07/30/23 18:14 Resp 14 07/30/23 18:14 BP 99/53 L 07/30/23 18:14 Pulse Ox 96 07/30/23 18:14 Time Spent Time spent with Patient: >75 minutes Time was spent: preparing to see the patient(eg.review tests), obtaining and/or reviewing separately otained hiistory, ordering medications,tests, procedures, referring, communicating with other health healthcare management consultant, indepentently interpreting results, counseling the patient and care coordination
--- NOTE | 2023-07-31 | DI.US_ITS ---
APPROVED REPORT EXAM: Comprehensive 2D, Doppler, and color-flow Echocardiogram Patient Location: In-Patient Room/Bed: 225 Loan Secretary: Mechelle Diaz RDCS (AE) Indications: Rule out endoccarditis Other Information Study Quality: Fair. Technically limited study due to body habitus. Conclusion Normal left ventricular wall thickness and chamber size. Ejection fraction is 55%. Wall motion is n ormal Normal right ventricular size and function Both atria are normal in size There is no structural or hemodynamically significant valvular disease. No valvular vegetations are identified Estimated right ventricular systolic pressure is 30 mmHg Wall motion Left Ventricle The left ventricle is normal size. The left ventricular systolic function is normal. The left ventric ular ejection fraction is within the normal range. There is normal left ventricular wall thickness. T here is normal LV segmental wall motion. There is no ventricular septal defect visualized. LVEF is 55 %. Right Ventricle The right ventricle is normal size. The right ventricular systolic function is normal. Atria The left atrium size is normal. The right atrium size is normal. The interatrial septum is intact wit h no evidence for an atrial septal defect. Aortic Valve The aortic valve is normal in structure. There is no aortic valvular stenosis. No aortic regurgitatio n is present. There is no aortic valvular vegetation. Mitral Valve The mitral valve is normal in structure. No evidence of mitral valve stenosis. Trace mitral regurgita tion. There is no evidence of mitral valve vegetations. Tricuspid Valve The tricuspid valve is normal in structure. There is no tricuspid valve stenosis. Trace tricuspid reg urgitation. The RVSP is 29.6 mmHg. There is no tricuspid valve vegetations. Pulmonic Valve Pulmonic valve is not well visualized. There is no pulmonic valvular stenosis. There is no pulmonic v alvular regurgitation. Great Vessels The aortic root is normal in size. Ascending aorta is not well visualized. Aortic arch is normal in c aliber. IVC is normal in size and collapses >50% with inspiration. Pericardium There is no pericardial effusion. 2D Dimensions IVSD d PLAX 0.86 cm F: 0.6-1.0 Ao Root d 2.73 cm F: 2.7 - 3.3 LVPW d PLAX 0.91 cm F: 0.6 - 1.0 LVID d PLAX 4.91 cm F: 3.8 - 5.2 LVDs 3.49 cm F: 2.2 - 3.5 LV EF Teichholz 55.4 % FS 28.89 % LV EDV (Teich) 113.2 mL LV ESV (Teich) 50.5 mL M-Mode TAPSE 2.04 cm (M/F) >1.7 Auto EF LV EDV A4C 135.7 mL LV EDV A2C 133.3 mL LV EDV BP 134.5 mL LV ESV A4C 60.6 mL LV ESV A2C 59.0 mL LV ESV BP 59.8 mL LVEF(%) A4C 55.4 % LVEF(%) A2C 55.7 % LVEF(%) BP 55.5 % LV SV A4C 75.1 ml LV SV A2C 74.3 ml LV SV BP 74.7 ml LV CO A4C 4.9 L/min LV CO A2C 5.5 L/min LV CO BP 5.2 L/min HR A4C 65.10 BPM HR A2C 73.44 BPM LV EDV Index (BP) LA Volume LA Length A4C 4.6 cm LA Length A2C 5.4 cm LA Area A4C s 15.81 cm2 LA Area A2C s 17.63 cm2 LA Vol A4C A-L 46.08 mL LA Vol A2C A-L 48.96 mL LA Vol Biplane A-L 51.4 mL LA Vol/BSA A4C A-L LA Vol/BSA A2C A-L LA Vol/BSA BP A-L 30.6 mL/m2 LA Vol A4C MOD 41.3 mL LA Vol A2C MOD 47.5 mL LA Vol BP MOD 46.9 mL RA Volume RA Area A4C 10.3 cm2 RA ESV A4C (A-L) 23.3mL RA Vol/BSA A4C A-L RA Length A4C 3.9 cm RA ESV A4C (MOD) 22.2mL LV Diastology MV E' medial 0.098 (>0.07 m/s) MV E Vmax 0.81 (0.4-1.3 m/s) MV E/E' MED 8.30 (<14) MV A Vmax 0.95 (0.4-1.3 m/s) E/A Ratio 0.9 Aortic Valve AoV Vmax 1.72 m/s LVOT Vmax 1.07 m/s AoV Peak Grad 11.8 mmHg LVOT Peak Grad 4.6 mmHg AoV Area (Vmax) 1.79 cm2 LVOT VTI 0.191 m AoV VTI 0.308 m LVOT Mean Grad 2.8 mmHg AoV Mean Danilo. 1.27 m/s LVOT SV 55.05 mL AoV Mean Grad 7.2 mmHg LVOT Diam s 1.90 cm AoV Area (VTI) 1.79 cm2 Velocity Ratio 0.62 Mitral Valve MV DT 311 (160-240 msec) MV Vmax TIPS 0.90 m/s MV Mean Grad 1.7 (<2mmHg) MV VTI 0.362 m Pulmonary Valve PV Vmax 0.84 (0.5-1.5 m/s) RVOT Vmax 0.57 m/s PV Peak Grad 2.8 mmHg RVOT Peak Gr. 1.3 mmHg PV Mean Danilo 0.64 m/s RVOT VTI 0.139 m PV Mean Grad 1.8 mmHg RVOT Mean Gr. 0.9 mmHg Tricuspid Valve RA Pressure 3.00 mmHg TR Vmax 2.58 m/s TV S' 0.12 m/s TR Peak Grad 26.5 mmHg RVSP (TR) 29.6 mmHg
[2023-07-31] MEDS: Normal Saline Flush 10 ML SYR IVP ×9 (00:19→20:30)
[2023-07-31] MEDS: HYDROmorphone 2 MG/ML SYR IVP ×6 (00:19→20:31)
[2023-07-31 00:46] VITALS: BP 101/55; PULSE 77; RESP 16; TEMP 36.7; O2SAT 97
[2023-07-31] MEDS: CEFEPIME 2 GM in Normal Saline 100 ML IVPB ×3 (00:59→15:40)
[2023-07-31] MEDS: Heparin in 0.45% NaCl 25,000 UNIT/250 ML BAG 15.5 UNIT IV (03:17)
[2023-07-31] MEDS: VANCOMYCIN/WATER (PEG) 750 MG/150 ML BAG 150 MG IV ×2 (04:08→16:28)
[2023-07-31 07:06] VITALS: BP 131/95; PULSE 86; RESP 20; TEMP 36.5; O2SAT 94
[2023-07-31 09:33] LABS: PTT Activated 49.6 sec (23.6-32.8); Vancomycin, Random 19.3 ug/mL
[2023-07-31 10:38] LABS: Absolute Basophil Count 0.04 10^3/uL (0.0-0.2); Absolute Eosinophil Count 0.06 10^3/uL (0.0-0.7); Absolute Lymphocyte Count 2.37 10^3/uL (1.2-3.4); Absolute Monocyte Count 0.96 10^3/uL (0.1-0.8); Absolute Neutrophil Count 5.46 10^3/uL (1.2-6.7); Basophils % 0.4 %; Eosinophils % 0.7 %; HCT 39.2 % (36.0-46.0); HGB 12.5 g/dL (11.2-15.7); Immature Grans % 0.6 %; Lymphocytes % 26.5 %; MCH 27.6 pg (27.0-33.0); MCHC 31.9 % (32.0-36.0); MCV 87 fL (80-95); MPV 11.3 fL (8.0-11.0); Monocytes % 10.7 %; Neutrophils % 61.1 %; Platelet Count 234 10^3/uL (130-400); RBC 4.53 10^6/uL (3.93-5.22); RDW 14.3 % (11.7-14.6); RDW-SD 45.3 fL; WBC 8.94 10^3/uL (4.4-10.8)
[2023-07-31 10:39] LABS: Abs Immature Grans 0.05 10^3/uL (0.0-0.06)
[2023-07-31] MEDS: Methadone Liquid 10 MG/ML 90 MG PO (10:44)
--- NOTE | 2023-07-31 10:48 | DI.US_ITS ---
Exam(s) US UPPER EXTREMITY VENOUS RT EXAM: US UPPER EXTREMITY VENOUS RT CLINICAL HISTORY: Basilic vein thrombus. TECHNIQUE: Ultrasound examination of the right upper extremity venous system(s) is performed using g rayscale, color-flow, and spectral Doppler analysis. COMPARISON: No exams were available for comparison FINDINGS: The right internal jugular, subclavian, axillary and brachial veins are patent. They show normal com pression and augmentation. There is noncompressible thrombus seen in the superficial basilic, cephal ic and median cubital veins. There is also thrombus seen an unpaired veins in the forearm. IMPRESSION: 1. Occlusive thrombus is seen in the basilic, cephalic and median cubital veins. There is also thromb us seen in under para and in the forearm. 2. No evidence of thrombus seen in the deep veins of the upper extremity. DATA REPOSITORY:
--- NOTE | 2023-07-31 12:46 | W.PM.PROGNOT ---
Date of Service Date of service: 07/31/23 Time of Service: 12:47 Assessment and Plan Assessment and plan (1) Thrombophlebitis arm: Status: Acute Assessment and plan: Her white blood cell count is normalized, and clinical features are markedly better compared to yesterday. So far, her prior culture data shows strep species, as well as haemophilus influenza. Most recent blood cultures so far negative. In light of the improvement, I think we should continue with IV antibiotics, and therapeutic anticoagulation. She is trying to keep the arm elevated is much as she can. I will make some changes to her analgesia in an effort to keep her more comfortable. We did discuss HIV as a risk factor for H. influenzae bacteremia, and she consented to HIV screening. I will make those arrangements today as well. Subjective Subjective Interval history since last seen: Darcie reports feeling much better today, although she still has a fair amount of pain in the arm. She is quite hungry. Exam Skin Other: The erythema has really improved quite markedly. And the swelling is down as well. There is still some seropurulent drainage in the antecubital fossa. She is less tender. Objective Last Vital Signs Temp 97.7 F 07/31/23 07:06 Pulse 86 07/31/23 07:06 Resp 20 07/31/23 07:06 BP 131/95 H 07/31/23 07:06 Pulse Ox 94 07/31/23 07:06 Laboratory Results - last 24 hr 07/30/23 07/30/23 07/31/23 14:26 22:00 05:35 WBC 13.63 H RBC 5.15 Hgb 14.3 Hct 44.0 MCV 85 MCH 27.8 MCHC 32.5 RDW 13.9 Plt Count 270 MPV 11.3 H Immature Gran % 0.0 Neutrophils % 74.0 Lymphocytes % 16.0 Atypical Lymphs % 1 Monocytes % 8.0 Eosinophils % 1.0 Basophils % 0.0 Nucleated RBC % 0.0 Absolute Neutrophils 10.09 H Absolute Lymphocytes 2.32 Absolute Monocytes 1.09 H Absolute Eosinophils 0.14 Absolute Basophils 0.00 RBC Morphology Normal PT 11.3 H INR 1.1 APTT 36.5 H 49.0 H Cancelled VBG Lactate 1.3 Sodium 139 Potassium 3.9 Chloride 101 Carbon Dioxide 28.9 Anion Gap 9.1 BUN 9 Creatinine 1.0 Est GFR (CKD-EPI 2020) 75.81 Glucose 109 H Calcium 8.9 Total Bilirubin 0.4 AST 19 ALT 23 Alkaline Phosphatase 101 Total Protein 8.1 Albumin 2.7 L Random Vancomycin 07/31/23 07:00 WBC 8.94 RBC 4.53 Hgb 12.5 Hct 39.2 MCV 87 MCH 27.6 MCHC 31.9 L RDW 14.3 Plt Count 234 MPV 11.3 H Immature Gran % 0.6 Neutrophils % 61.1 Lymphocytes % 26.5 Atypical Lymphs % Monocytes % 10.7 Eosinophils % 0.7 Basophils % 0.4 Nucleated RBC % 0.0 Absolute Neutrophils 5.46 Absolute Lymphocytes 2.37 Absolute Monocytes 0.96 H Absolute Eosinophils 0.06 Absolute Basophils 0.04 RBC Morphology PT INR APTT 49.6 H VBG Lactate Sodium Potassium Chloride Carbon Dioxide Anion Gap BUN Creatinine Est GFR (CKD-EPI 2020) Glucose Calcium Total Bilirubin AST ALT Alkaline Phosphatase Total Protein Albumin Random Vancomycin 19.3 Time Spent with Patient Time Spent with Patient: 25-34 minutes Time was spent: preparing to see the patient(eg.review tests), indepentently interpreting results and counseling the patient
[2023-07-31] MEDS: oxyCODONE 5 MG TAB PO ×2 (14:35→20:32)
--- NOTE | 2023-07-31 15:45 | PDOC.CMIN ---
Date of service: 07/31/23 Time of Service: 15:45 Care Management Initial Assmt Initial Assessment REASON FOR HOSPITALIZATION:: Septic thrombophlebitis PREVIOUS FUNCTIONAL STATUS/SOCIAL/FAMILY SUPPORTS:: Resides in [place], independent at baseline. CURRENT FUNCTIONAL STATUS:: Sitting up in bed, ridgid, constantly in motion, does not make eye contact though appropriate in interaction; guarded. When asked if she drove herself to the hospital she responded why? CM inquired as to transportation home, Estefania waved her hand and stated Don't know yet. CM reviewed role, offered PCP support; Estefania declined and acknowledged CM role and outreach as needed. She noted frustration re: delay in methadone, CM apologized for delay and explained downtime and dosage inquiries resulting in delays, and shared hopes that tomorrow would be more timely, validating the challenges of this morning and shared positive reinforcement for Estefania remaining at [facility] though difficult. CM continues to follow. ADVANCE DIRECTIVES:: None on file. Has patient been provided with info about the portal/API?: No Did the patient sign up for the portal?: No CODE STATUS:: Full Code PRIMARY CARE PHYSICIAN:: None, not interested at this time. POTENTIAL DISCHARGE NEEDS:: Follow up recommendations for Estefania's consideration. PATIENT/FAMILY EDUCATION NEEDS:: System delays, discharge recommendations, self care needs. ANTICIPATED BARRIERS TO DISCHARGE:: None identified. TRANSPORTATION:: Dependent on patient wishes. PLAN:: Anticipate Estefania will return home when ready per MD, discharge plan dependent on Estefania's wishes. CM following. PFSH All Active Problems (Updated 07/30/23 @ 19:32 by Kevin Wilhelm MD) Thrombophlebitis arm (Acute) Bacteremia (Acute) Thrombophlebitis arm (Acute) Abscess of hand (Acute) Viral URI with cough (Acute) Dental infection (Acute) Abscess of right breast (Acute) Dental abscess (Acute) Medical History (Updated 07/30/23 @ 19:32 by Kevin Wilhelm MD) Cellulitis of right breast Cellulitis and abscess of left leg Dental abscess Methadone dependence History of intravenous drug abuse Tobacco abuse Social History Smoking/Tobacco Use Status: Current every day Tobacco Type: cigarettes Smoking risk assessment performed?: Yes Alcohol Intake: current Alcohol Intake frequency: holidays/special occasions only Drug use: Current Sobriety Substance use type: opiates Details: Methadone clinic Housing: house Do you feel safe at home: Yes Do you feel safe in your relationship?: Yes Additional Social history: pt denies using street drugs since leaving the ER last sonali SDOH(Care Management) Screening Will the Patient Participate in the Screening?: Yes Do you worry about having a steady place to live?: no Problems where you live: no known problems In the past 12 months, have you had to go without electric, gas, oil or water in your home?: no Have you or anyone in your house had to go without enough food to eat?: no Has lack of transportation kept you from medical appointments or from doing things needed for daily living?: no Has anyone in your support network made you feel unsafe for any reason?: no Health Related Social Needs Health related social needs: housing instability, housed, with risk of homelessness(Z59.811), food insecurity(Z59.41) and transportation insecurity(Z59.82) Interventions Referrals and interventions: Not open to referrals at this time.
[2023-07-31 15:56] VITALS: BP 118/86; PULSE 77; RESP 16; TEMP 36.9; O2SAT 97
[2023-07-31] MEDS: Heparin in 0.45% NaCl 25,000 UNIT/250 ML BAG 17 UNIT IV (17:20)
[2023-07-31 20:19] LABS: PTT Activated 54.2 sec (23.6-32.8)
[2023-08-01] VITALS: BP 100/79; PULSE 70; RESP 20; TEMP 35.6; O2SAT 96
[2023-08-01] MEDS: Normal Saline Flush 10 ML SYR IVP ×9 (00:08→23:16)
[2023-08-01] MEDS: CEFEPIME 2 GM in Normal Saline 100 ML IVPB ×4 (00:08→23:16)
[2023-08-01 00:24] VITALS: BP 110/62; PULSE 72; RESP 19; TEMP 36.9; O2SAT 97
[2023-08-01] MEDS: HYDROmorphone 2 MG/ML SYR IVP ×7 (01:02→21:45)
[2023-08-01] MEDS: VANCOMYCIN/WATER (PEG) 750 MG/150 ML BAG 150 MG IV ×2 (04:28→16:57)
[2023-08-01] MEDS: oxyCODONE 5 MG TAB PO ×3 (05:13→19:38)
[2023-08-01 07:26] LABS: HCT 41.4 % (36.0-46.0); HGB 12.9 g/dL (11.2-15.7); MCH 27.6 pg (27.0-33.0); MCHC 31.2 % (32.0-36.0); MCV 89 fL (80-95); MPV 11.4 fL (8.0-11.0); Platelet Count 258 10^3/uL (130-400); RBC 4.68 10^6/uL (3.93-5.22); RDW 14.2 % (11.7-14.6); RDW-SD 46.3 fL; WBC 8.61 10^3/uL (4.4-10.8)
[2023-08-01 07:39] LABS: PTT Activated 39.2 sec (23.6-32.8)
[2023-08-01 07:40] VITALS: BP 129/97; PULSE 79; RESP 19; TEMP 36.3; O2SAT 97
[2023-08-01] MEDS: Psyllium PKT 1 EACH PO (07:47)
[2023-08-01] MEDS: Heparin in 0.45% NaCl 25,000 UNIT/250 ML BAG 17 UNIT IV ×2 (07:47→22:45)
[2023-08-01] MEDS: Methadone Liquid 10 MG/ML 90 MG PO (08:01)
[2023-08-01 10:08] LABS: HIV-1/2 Ag & Ab Screen Negative (Negative)
--- NOTE | 2023-08-01 11:11 | CMPROGNOTE_ITS ---
Date of service: 08/01/23 Time of Service: 11:11 Care Management Progress Note Progress Note Text Progress Note Text: S/O: Remains inpatient per provider, Estefania is eating well, reports some pain in her arm but shares no additional concerns at this time. CM helps her cut down the stems on her flower arrangement and place it in the window, as well as adjust room temperature. CM following. A: 32 year old female admitted to [facility] 07/30/23 for septic thrombophlebitis P: Anticipate Estefania will return home when ready per MD, discharge plan dependent on provider recommendations and Estefania's wishes. CM following. SDOH(Care Management) Screening Will the Patient Participate in the Screening?: Yes Do you worry about having a steady place to live?: no Problems where you live: no known problems In the past 12 months, have you had to go without electric, gas, oil or water in your home?: no Have you or anyone in your house had to go without enough food to eat?: no Has lack of transportation kept you from medical appointments or from doing things needed for daily living?: no Has anyone in your support network made you feel unsafe for any reason?: no
[2023-08-01 15:53] VITALS: BP 135/68; PULSE 68; RESP 18; TEMP 36.6; O2SAT 99
--- NOTE | 2023-08-01 18:16 | PGE_ITS ---
Date of Service Date of service: 08/01/23 Time of Service: 18:16 Assessment and Plan Assessment and plan (1) Thrombophlebitis arm: Status: Acute (2) Abscess of hand: Status: Acute (3) Bacteremia: Status: Acute Assessment and plan: -pt is responding to conservative medical management and will continue on this course of treatment. -Vanco and cefepime see cultures in [facility] until Friday (4) History of intravenous drug abuse: (5) Methadone dependence: (6) Tobacco abuse: (7) Intravenous drug abuse: Status: Acute Assessment and plan: - Patient has longstanding history of IV drug abuse.. She is also on methadone and still doing IV fentanyl. She is quite an extensive DVT of the deep system of her arm. She is currently anticoagulant on heparin. Dr. Quinn bosch I did discuss that pt is poor candidate to be d/c on blood thinners outside of the hospital. pt is not committed to sobriety at this time. -will work on a pain management plan -aqua K This document was created with voice activated software and may contain errors. (8) DVT of upper extremity (deep vein thrombosis): Status: Acute (9) Poor dentition: Status: Acute Subjective Subjective Interval history since last seen: Pt is doing well. no headaches. No CP or SOB. no productive cough. no dysuria. no leg pain or swelling. She notes the pain/swelling/redness have gone down. She is having some diarrhea form the abx- two liquid stools a day. But no more than that. (Will start pt on probiotics). Pt is tolerating a regular diet. no bleeding. no reaction from abx. Exam Narrative Exam Narrative: PHYSICAL EXAM GENERAL APPEARANCE: Alert, healthy appearance, oriented, x 3,? in no acute dist ress HYDRATION: Well hydrated HEAD, EYES, EARS, NECK, THROAT: Head is normocephalic, pupils equal, round, reactive to light and accommodation, ocular movement intact, sclera clear and no jaundice. ?Dentition-poor LUNGS: normal respiration/normal chest excursion. ?Clear to auscultation bilaterally. ?HEART: Regular rate and rhythm. no murmurs EXTREMITY: R arm shows decreased redness and tenderness. Pt is still c/o severe pain. There is significant edema/induration of the tissues. Pt the arm is still soft. +radial pulse. ABDOMEN: soft and non-tender to palpation.? Normal bowel sounds.? Objective Last Vital Signs Temp 36.6 C 08/01/23 15:53 Pulse 68 08/01/23 15:53 Resp 18 08/01/23 15:53 BP 135/68 08/01/23 15:53 Pulse Ox 99 08/01/23 15:53 Laboratory Results - last 24 hr 07/31/23 07/31/23 08/01/23 07:07 20:00 06:28 WBC 8.61 RBC 4.68 Hgb 12.9 Hct 41.4 MCV 89 MCH 27.6 MCHC 31.2 L RDW 14.2 Plt Count 258 MPV 11.4 H APTT 54.2 H 39.2 H HIV 1&2 Ag/Ab, 4th Gen Negative Time Spent with Patient Time Spent with Patient: 25-34 minutes Time was spent: preparing to see the patient(eg.review tests), obtaining and/or reviewing separately otained hiistory, ordering medications,tests, procedures, referring, communicating with other health respiratory care faculty, indepentently interpreting results, counseling the patient and care coordination
[2023-08-01 19:35] VITALS: BP 125/69; PULSE 63; RESP 18; TEMP 36.5; O2SAT 96
[2023-08-01] MEDS: Lactobacillus Acidophilus CAP 1 CAP PO (19:38)
[2023-08-01 22:56] LABS: PTT Activated 49.9 sec (23.6-32.8)
[2023-08-01] MEDS: Heparin in 0.45% NaCl 25,000 UNIT/250 ML BAG 18.5 UNIT IV (23:18)
[2023-08-02] MEDS: Normal Saline Flush 10 ML SYR IVP ×9 (02:32→23:19)
[2023-08-02] MEDS: HYDROmorphone 2 MG/ML SYR IVP ×6 (02:33→23:19)
[2023-08-02] MEDS: VANCOMYCIN/WATER (PEG) 750 MG/150 ML BAG 150 MG IV ×2 (03:53→16:08)
[2023-08-02] MEDS: oxyCODONE 5 MG TAB PO ×2 (04:33→19:56)
[2023-08-02] MEDS: Acetaminophen 500 MG TAB 1000 MG PO ×3 (06:04→18:28)
[2023-08-02 06:41] LABS: Abs Immature Grans 0.06 10^3/uL (0.0-0.06); Absolute Basophil Count 0.05 10^3/uL (0.0-0.2); Absolute Eosinophil Count 0.06 10^3/uL (0.0-0.7); Absolute Lymphocyte Count 1.93 10^3/uL (1.2-3.4); Absolute Monocyte Count 0.59 10^3/uL (0.1-0.8); Absolute Neutrophil Count 5.59 10^3/uL (1.2-6.7); Basophils % 0.6 %; Eosinophils % 0.7 %; HCT 41.2 % (36.0-46.0); HGB 13.2 g/dL (11.2-15.7); Immature Grans % 0.7 %; Lymphocytes % 23.3 %; MCH 27.9 pg (27.0-33.0); MCV 87 fL (80-95); Monocytes % 7.1 %; Neutrophils % 67.6 %; Platelet Count 275 10^3/uL (130-400); RBC 4.73 10^6/uL (3.93-5.22); RDW 14.1 % (11.7-14.6); RDW-SD 45.1 fL; WBC 8.28 10^3/uL (4.4-10.8)
[2023-08-02 06:56] LABS: PTT Activated 56.8 sec (23.6-32.8)
[2023-08-02 07:27] VITALS: BP 125/100; PULSE 72; RESP 16; TEMP 36.1; O2SAT 96
[2023-08-02] MEDS: Gabapentin 100 MG CAP PO ×3 (08:04→19:55)
[2023-08-02] MEDS: CEFEPIME 2 GM in Normal Saline 100 ML IVPB ×3 (08:05→23:18)
[2023-08-02] MEDS: Methadone Liquid 10 MG/ML 90 MG PO (08:18)
--- NOTE | 2023-08-02 09:51 | NUR.NOTE ---
Pt removed her wound drsg and rang for someone to replace it. Advised not to removed drsgs without staff present as worsening infection can happen with wound exposed. Nursing Note:
[2023-08-02] MEDS: Heparin in 0.45% NaCl 25,000 UNIT/250 ML BAG 18.5 UNIT IV ×2 (10:48→23:42)
--- NOTE | 2023-08-02 13:01 | NUR.NOTE ---
Pt is wanting all lights off and door closed so that she can sleep ( 1pm). Nursing Note:
--- NOTE | 2023-08-02 13:02 | W.PM.PROGNOT ---
Date of Service Date of service: 08/02/23 Time of Service: 12:55 Assessment and Plan Assessment and plan (1) Thrombophlebitis arm: Status: Acute Assessment and plan: 32-year-old woman with pretty severe and significant thrombophlebitis of the right upper extremity secondary to IV drug use. She is afebrile, leukocytosis has resolved, neurologically intact, vascular intact, and most importantly: the infection and swelling is subsiding clinically. She will remain in the hospital over the weekend on IV antibiotics as well as IV heparin. Her PTT confirms therapeutic anticoagulation. She has another vancomycin trough pending today. She has an ultrasound ordered for Friday. Considering her baseline/daily activities, she will continue to require IV pain medication throughout the weekend. Overall plan: She needs to stay on IV antibiotics, IV anticoagulation and have another ultrasound on Friday prior to discharge. Hopefully on Friday after the ultrasound we can come up with an outpatient plan which will involve oral anticoagulation and oral antibiotics. She also needs to be dialed in with a social work scenario to ensure she has the resources available to try to stop IV drug use. Subjective Subjective Interval history since last seen: At the bedside the patient is asleep. She is easy to wake up. She denies any pain. She says everything is drastically improved and better. All of the swelling is gone. She is not having any fevers. Nursing reports that she is still requiring significant amounts of IV pain medication Exam Narrative Exam Narrative: General: Nontoxic, interactive and comfortable. Neuro: Alert and oriented x 3. The right upper extremity has 5/5 motor movement and intact sensation all the way to the fingers. Psych: Reasonable mood and affect, reasonable insight and understanding. Right upper extremity: Free range of motion in the shoulder, and the elbow, the wrist and in the fingers. There is still some mild induration of the proximal right upper extremity however it is significantly decreased. There is minimal/mild erythema but this is also decreased. There is no significant tenderness to examination. Objective Last Vital Signs Temp 97.0 F L 08/02/23 07:27 Pulse 72 08/02/23 07:27 Resp 16 08/02/23 07:27 BP 125/100 H 08/02/23 07:27 Pulse Ox 96 08/02/23 07:27 Laboratory Results - last 24 hr 08/01/23 08/02/23 22:35 06:21 WBC 8.28 RBC 4.73 Hgb 13.2 Hct 41.2 MCV 87 MCH 27.9 MCHC 32.0 RDW 14.1 Plt Count 275 MPV 11.0 Immature Gran % 0.7 Neutrophils % 67.6 Lymphocytes % 23.3 Monocytes % 7.1 Eosinophils % 0.7 Basophils % 0.6 Nucleated RBC % 0.0 Absolute Neutrophils 5.59 Absolute Lymphocytes 1.93 Absolute Monocytes 0.59 Absolute Eosinophils 0.06 Absolute Basophils 0.05 APTT 49.9 H 56.8 H Time Spent with Patient Time Spent with Patient: 25-34 minutes Time was spent: preparing to see the patient(eg.review tests), ordering medications,tests, procedures, indepentently interpreting results, counseling the patient and care coordination
--- NOTE | 2023-08-02 13:13 | NUR.NOTE ---
Spoke to surgical rn transitional care about pt's IV pain med demands, provider stated to continue to give her IV meds as ordered so that she will not leave AMA. Nursing Note:
[2023-08-02 14:41] LABS: Vancomycin, Trough 8.3 ug/mL (10.0-20.0)
[2023-08-02 15:15] VITALS: BP 111/66; PULSE 55; RESP 16; TEMP 36.1; O2SAT 94
[2023-08-02 19:35] VITALS: BP 122/80; PULSE 68; RESP 18; TEMP 36.1; O2SAT 95
[2023-08-02] MEDS: Lactobacillus Acidophilus CAP 1 CAP PO (19:56)
[2023-08-02] MEDS: Methocarbamol 500 MG TAB 1000 MG PO (19:57)
[2023-08-02 23:26] VITALS: BP 101/85; PULSE 70; RESP 17; TEMP 36; O2SAT 97
[2023-08-03] MEDS: VANCOMYCIN/WATER (PEG) 750 MG/150 ML BAG 150 MG IV (00:18)
[2023-08-03] MEDS: Normal Saline Flush 10 ML SYR IVP ×6 (01:40→23:30)
[2023-08-03] MEDS: oxyCODONE 5 MG TAB PO ×2 (04:19→19:56)
[2023-08-03] MEDS: HYDROmorphone 2 MG/ML SYR IVP ×5 (04:21→23:30)
[2023-08-03] MEDS: Acetaminophen 500 MG TAB 1000 MG PO ×3 (06:00→19:55)
[2023-08-03 07:07] LABS: PTT Activated 48.8 sec (23.6-32.8)
--- NOTE | 2023-08-03 07:23 | W.PM.PROGNOT ---
Date of Service Date of service: 08/03/23 Time of Service: 11:30 Assessment and Plan Assessment and plan (1) Thrombophlebitis arm: Status: Acute Assessment and plan: 32 yo woman with injection-related thrombophlebitis. HD stable. Continues to improve. Neurovasc intact. Getting IV Abx and IV heparin gtt Overall Plan: Friday DC planning to include: Repeat US, oral AC conversion, Oral Abx conversion, outpatient followup coordination If she stays on IV Vanco, she should have another trough drawn tomorrow before the AM Dose. Subjective Subjective Interval history since last seen: No complaints. Continues to endorse improvement. Wondering when she can go home. No fevers. Yesterday we increased her Vanco frequency from Q12 to Q8 because her trough was just under 10. Exam Narrative Exam Narrative: Gen: nontoxic, comfortable, in no pain Neuro: axOx3. RUE has intact motor and sensation. Psych: Reasonable mood and affect, reasonable insight and understanding Extr: RUE: FROM. no limitation. No significant pain. Wrapped again but without obvious erythema or induration. At the medial elbow crease, there remains some mild echymosis and erythema, but continues to decrease and improve. No woodiness or crepitus anywhere. Seems mostly pain-free. Objective Last Vital Signs Temp 96.8 F L 08/02/23 23:26 Pulse 70 08/02/23 23:26 Resp 17 08/02/23 23:26 BP 101/85 08/02/23 23:26 Pulse Ox 97 08/02/23 23:26 Laboratory Results - last 24 hr 08/02/23 08/02/23 08/02/23 06:21 13:55 16:58 APTT 56.8 H 65.0 H Vancomycin Trough 8.3 L 08/03/23 06:18 APTT 48.8 H Vancomycin Trough Time Spent with Patient Time Spent with Patient: <25 minutes Time was spent: indepentently interpreting results, counseling the patient and care coordination
[2023-08-03 07:26] VITALS: BP 140/110; PULSE 62; RESP 18; TEMP 36.1; O2SAT 99
[2023-08-03] MEDS: CEFEPIME 2 GM in Normal Saline 100 ML IVPB ×3 (07:43→23:30)
[2023-08-03] MEDS: Gabapentin 100 MG CAP PO ×3 (07:44→19:56)
[2023-08-03] MEDS: Methadone Liquid 10 MG/ML 90 MG PO (08:36)
[2023-08-03] MEDS: VANCOMYCIN/WATER (PEG) 750 MG/150 ML BAG 15 MG IV ×2 (08:37→16:02)
[2023-08-03] MEDS: Heparin in 0.45% NaCl 25,000 UNIT/250 ML BAG 20 UNIT IV (11:47)
[2023-08-03 13:59] LABS: PTT Activated 68.8 sec (23.6-32.8)
[2023-08-03 15:23] VITALS: BP 142/96; PULSE 67; RESP 17; TEMP 36; O2SAT 97
--- NOTE | 2023-08-03 15:36 | NUR.NOTE ---
Pt asked for a 5th cup of coffee, declined by nursing as she is anxious and impulsive. Discussed hydrating with water, she would prefer juice, which was brought to her. Nursing Note:
[2023-08-03 19:39] LABS: PTT Activated 71.7 sec (23.6-32.8)
[2023-08-03 19:52] VITALS: BP 146/99; PULSE 78; RESP 20; TEMP 36.4; O2SAT 98
[2023-08-03] MEDS: Lactobacillus Acidophilus CAP 1 CAP PO (19:56)
--- NOTE | 2023-08-03 21:07 | NUR.NOTE ---
visitor arrived at 2004, stating they forgot something in the room. at 2009 this nurse went to the room and found the door closed. I knocked on the door and opened it, and stated that visiting hours were over and they needed to leave. pt was sitting on the bed looking in her bag. visitor left without incidents.
[2023-08-04] MEDS: VANCOMYCIN/WATER (PEG) 750 MG/150 ML BAG 150 MG IV (00:23)
[2023-08-04] MEDS: Heparin in 0.45% NaCl 25,000 UNIT/250 ML BAG 20 UNIT IV ×2 (00:23→12:48)
[2023-08-04] MEDS: Acetaminophen 500 MG TAB 1000 MG PO ×3 (00:24→15:42)
[2023-08-04] MEDS: Normal Saline Flush 10 ML SYR IVP ×2 (06:19→10:25)
[2023-08-04] MEDS: HYDROmorphone 2 MG/ML SYR IVP (06:19)
[2023-08-04] MEDS: Lactobacillus Acidophilus CAP 1 CAP PO (06:20)
[2023-08-04 07:07] LABS: HCT 49.7 % (36.0-46.0); HGB 15.8 g/dL (11.2-15.7); MCH 27.3 pg (27.0-33.0); MCHC 31.8 % (32.0-36.0); MCV 86 fL (80-95); MPV 10.4 fL (8.0-11.0); Platelet Count 269 10^3/uL (130-400); RBC 5.79 10^6/uL (3.93-5.22); WBC 6.93 10^3/uL (4.4-10.8)
[2023-08-04 07:14] LABS: PTT Activated 71.9 sec (23.6-32.8)
[2023-08-04 07:48] VITALS: BP 126/77; PULSE 62; RESP 18; TEMP 35.9; O2SAT 95
--- NOTE | 2023-08-04 08:00 | DI.US_ITS ---
Exam(s) US UPPER EXTREMITY VENOUS RT EXAM: US UPPER EXTREMITY VENOUS RT CLINICAL HISTORY: clot R arm. TECHNIQUE: Ultrasound examination of the right upper extremity venous system(s) is performed using g rayscale, color-flow, and spectral Doppler analysis. COMPARISON: US US UPPER EXTREMITY VENOUS RT from 07/31/2023 FINDINGS: The right internal jugular, subclavian, axillary and brachial veins are patent. They show normal com pression and augmentation. No evidence of a deep vein thrombus is seen. There is again seen thrombu s involving the right basilic, cephalic and median cubital veins. IMPRESSION: 1. No evidence of thrombus in the deep veins of the right upper extremity. 2. There is again seen occlusive thrombus in the basilic, cephalic and median cubital veins. DATA REPOSITORY:
--- NOTE | 2023-08-04 10:13 | NUR.NOTE ---
Pt had friend Gissell call the nurses station to discuss why the patient has not been medicated as of yet. Gissell was placed on a brief hold while staff paged the Primary Nurse for the patient. Preston RN had been tied up in another patient room, CC answered the phone to the friend stating What are you people doing, she needs her medications, it should not take this long as it is a medication she gets everyday. You are not taking adequate care of her and I want to know why? CC explained that her nurse was tied up, but is well aware of the patients medication need and will be in shortly. Friend than stated Well if that is the case, you need more staff! CC explained that if she would like to discuss the staffing that is not something I can help with but would be happy to transfer her to someone else. Friend then went on to argue that the patient does not have a mother or father and she is all alone. You people need to take better care of her, I would come down to advocate if i could but I am unable to at the moment. Friend continued to argue at which point, CC stated Someone will be in with her medication shortly, I hope you have a nice day and hung up the phone. Murray called back for a 3rd time again asking to talk to someone who would listen to her concerns, CC called Entry Processor who had agreed to speak with the friend. Friend then called for a 4th time and another RN had answered the phone and assured her that the patient is getting her medication. Nursing Note:
[2023-08-04] MEDS: Amoxicillin 875 MG TAB PO (10:24)
[2023-08-04] MEDS: Gabapentin 100 MG CAP PO ×2 (10:24→15:42)
[2023-08-04] MEDS: Methadone Liquid 10 MG/ML 90 MG PO (10:24)
[2023-08-04] MEDS: oxyCODONE 5 MG TAB PO (10:24)
--- NOTE | 2023-08-04 12:22 | PDOC.CMPRO ---
Date of service: 08/04/23 Time of Service: 12:22 SDOH(Care Management) Screening Will the Patient Participate in the Screening?: Yes Do you worry about having a steady place to live?: no Problems where you live: no known problems In the past 12 months, have you had to go without electric, gas, oil or water in your home?: no Have you or anyone in your house had to go without enough food to eat?: no Has lack of transportation kept you from medical appointments or from doing things needed for daily living?: no Has anyone in your support network made you feel unsafe for any reason?: no Health Related Social Needs Health related social needs: housing instability, housed, with risk of homelessness(Z59.811), food insecurity(Z59.41) and transportation insecurity(Z59.82) Anticipated HH Services Anticipated HH Services at Discharge [facility].
--- NOTE | 2023-08-04 12:42 | W.PM.DS.N ---
Date of service: 08/04/23 Time of Service: 15:02 DS: Diagnosis Discharge Diagnosis (1) Thrombophlebitis arm: Status: Acute Asessment and Plan: Discharge for therapeutic anticoagulation and antibiotics. Follow-up 3 weeks Discharge Plan Disposition Patient Disposition: Home Condition: Improving Discharge Details Reason For Visit: septic thrombophlebitis Admit Date/Time: 07/30/23 19:44 Admit Provider: Frank Ball Attending Provider: Frank Ball Primary Care Provider: Unknown,Unknown Hospital Course Hospital Course: Estefania is 32 years old. She came to the hospital last week with complaints of an abscess in the right wrist. At that time, she was noted to have a large area of inflammation and induration in the right antecubital fossa. She underwent a CT scan that demonstrated thrombophlebitis of the superficial vessels of the right arm. Blood cultures at that time were drawn, but she left the hospital AGAINST MEDICAL ADVICE. Subsequently, the blood cultures came back positive, and patient return to the emergency depart with a new draining wound in the right antecubital fossa. She was admitted to the hospital and started on broad-spectrum antibiotics as well as therapeutic anticoagulation. Erythema and swelling in the arm improved, and culture data demonstrated strep species as well as H. influenzae. White blood cell count remained normal, and the exam of the arm started to improve. She was transitioned over to oral antibiotics, and discharged with plans for 3 months of therapeutic anticoagulation. The importance of ongoing antibiotics, and the risks of the therapeutic anticoagulation were explained to the patient in great detail and she was strongly advised to refrain from any high risk activities, especially with the use of intravenous drugs. She was discharged home with instructions, and planned outpatient follow Home Meds and New Rx's Prescriptions: New amoxicillin 875 mg tablet 875 mg PO BID Qty: 18 0RF Rx Instructions: Take 1 tablet by mouth in the morning, 1 tablet by mouth in the evening until the prescription is complete Xarelto 15 mg tablet 15 mg PO DAILY Qty: 42 0RF Rx Instructions: Take 1 tablet by mouth in the morning with food, and 1 tablet by mouth in the evening with food. No Action methadone 10 mg/mL Concentrate 90 mg PO DAILY albuterol sulfate 90 mcg/actuation aerosol powdr breath activated 1 - 2 inh inhalation Q6H PRN (Reason: shortness of breath or wheezing) Qty: 1 0RF clindamycin HCl 300 mg capsule 300 mg PO QID 10 Days Qty: 40 0RF clindamycin HCl 300 mg capsule 300 mg PO QID 10 Days Qty: 40 0RF Discharge Instructions Instructions: Superficial Thrombophlebitis (DC), Bacteremia (DC), Phlebitis (DC) Additional Instructions: Estefania, It was very nice meeting you in the hospital, and I am glad that you are making a nice recovery. As you probably remember, you were admitted with infected blood clots in your arm. This is extremely dangerous, as the bacteria can make you extremely sick. Furthermore, the blood clots in the veins can be life-threatening in some situations. Fortunately, you have had a favorable response to antibiotics and blood thinning medications. Your most recent blood cultures have all been negative. You will be treated with outpatient antibiotics for 9 more days to complete your therapy for the infection. You will also be treated with blood thinning medications to help reduce the blood clots in your veins, and minimize the likelihood that they travel to other parts of your body. The blood thinning medications are very strong, and it is quite important that you be very careful to reduce any significant chances of bleeding. If you have any bleeding problems whatsoever, you need to go to the emergency department immediately. You must avoid any high risk activity. The blood thinning medication will be continued for 3 months. I have taken the liberty of scheduling a follow-up appointment in my office on August 25. If you need anything in the meantime, please do not hesitate to call or ask at any point Stand Alone Forms: Nursing Discharge Form Referrals: Frank Ball MD [ [facility] STAFF PHYSICIAN] - 08/26/23 10:15 am (August 25 at 10:15 AM) Activity:: Activity as Tolerated Equipment/Supplies:: No Equipment Needed Diet:: As Tolerated Discharge Orders Discharge Orders: Discharge Order (Routine); Ordered 08/04/23 Ordered By: Frank Ball Discharge Data Discharge Date/Time-TO BE ENTERED AT DEPARTURE: 08/04/23 16:13 DS: Summary Time Spent with Patient providing and/or coordinating discharge services: Less than 30 minutes Status at Discharge Functional status at discharge: independent ambulation Overall status at discharge: patient is back to baseline Mental Status: mental status grossly normal Speech and Movement: speech and movement normal Mood: congruent mood Affect: normal affect Quality:SDOH Health Related Social Needs: Health related social needs risk of homeless, food insecurity, transpo insecurity Referrals and interventions: Not open to referrals at this time. Exam Skin Other: The right arm is less swollen and tender. There is a little bit of ecchymosis in the middle fossa, and the erythema continues to improve. Psych Mental Status: mental status grossly normal Speech and Movement: speech and movement normal Mood: congruent mood Affect: normal affect DS: Data Vitals/I&O Vitals and I&O: Vital Signs Temperature 96.7 F L 08/04/23 07:48 Temperature Source Tympanic 08/04/23 07:48 Pulse 62 08/04/23 07:48 Pulse Rhythm Regular 08/03/23 19:55 Pulse Strength Normal 07/30/23 20:29 Respiratory Rate 18 08/04/23 07:48 Respiratory Effort Normal, Non-Labored 08/03/23 19:55 Respiratory Depth Normal 08/03/23 19:55 Respiratory Pattern Normal 08/03/23 19:55 Blood Pressure 126/77 08/04/23 07:48 Blood Pressure Mean 94 07/30/23 20:29 Blood Pressure Position Sitting 07/30/23 20:29 Pulse Oximetry 95 08/04/23 07:48 Oxygen Delivery Method Room Air 08/04/23 07:48 Oxygen Flow Rate 0 08/04/23 07:48 Pain Level 7 08/04/23 10:24 Comment 140/128 08/03/23 07:26 Intake & Output 08/03/23 08/04/23 08/04/23 23:59 11:59 23:59 Intake Total 211.25 / 1041.242 950 / 950 Balance 211.25 / 1041.242 950 / 950 Weight 185 lb 13.595 oz Intake: IV 211.25 / 791.242 650 / 650 Oral 300 / 300 Other: Urine Color Yellow Urine Appearance Clear Clear Cloudy Comment pt has been voiding independently voids independently Stool Size Moderate Stool Characteristics Liquid Voiding Methods Toilet Toilet Data Completed and Pending Labs on day of discharge: Labs from last 24 hours 08/04/23 08/03/23 08/03/23 05:58 19:07 18:00 WBC 6.93 RBC 5.79 H Hgb 15.8 H D Hct 49.7 H MCV 86 MCH 27.3 MCHC 31.8 L RDW 14.0 Plt Count 269 MPV 10.4 APTT 71.9 H 71.7 H Cancelled 08/03/23 13:10 WBC RBC Hgb Hct MCV MCH MCHC RDW Plt Count MPV APTT 68.8 H Preliminary micro results at discharge 07/30/23 14:50 Blood Culture - Preliminary Blood NO GROWTH 96 HOURS 07/30/23 14:26 Blood Culture - Preliminary Blood NO GROWTH 96 HOURS PFSH All Active Problems Poor dentition (Acute) DVT of upper extremity (deep vein thrombosis) (Acute) Intravenous drug abuse (Acute) Bacteremia (Acute) Thrombophlebitis arm (Acute) Abscess of hand (Acute) Medical History Viral URI with cough Dental infection Dental abscess Abscess of right breast Cellulitis of right breast Cellulitis and abscess of left leg Dental abscess Methadone dependence History of intravenous drug abuse Tobacco abuse Social History Smoking/Tobacco Use Status: Current every day Tobacco Type: cigarettes Smoking risk assessment performed?: Yes Alcohol Intake: current Alcohol Intake frequency: holidays/special occasions only Drug use: Current Sobriety Substance use type: opiates Details: Methadone clinic Housing: house Do you feel safe at home: Yes Do you feel safe in your relationship?: Yes Additional Social history: pt denies using street drugs since leaving the ER last sonali Time Spent with Patient Time Spent with Patient: 45-69 minutes Time was spent: ordering medications,tests, procedures, indepentently interpreting results, counseling the patient and care coordination
[2023-08-04 15:06] VITALS: BP 129/81; PULSE 74; RESP 18; TEMP 36.1; O2SAT 95
--- NOTE | 2023-08-04 15:16 | CMDISCH_ITS ---
Date of service: 08/04/23 Time of Service: 15:16 LACE Index Scoring Tool Questions: Length of Stay (in days): 7 - 13 Was the patient admitted via the E.D.?: Yes E.D. Visits: 2 Answers: Total Score: 10 Risk of Readmission: High Risk Care Management Discharge Plan Reason for Hospitalization: Septic thrombophlebitis Discharge Plan: Estefania will return home on new medications; anticoagulation and antibiotic, per Dr. Ball. She will follow up with surgical services, refused PCP support, and additional services at this time. She will transport via private vehicle. Patient/Family Education Needs: Review discharge instructions, discuss Ask Me Three, self care needs upon discharge. SDOH Health Related Social Needs: Health related social needs risk of homeless, food ins ecurity, transpo insecurity Health related social needs: housing instability, housed, with risk of homelessness(Z59.811), food insecurity(Z59.41) and transportation insecurity(Z59.82) Referrals and interventions: Not open to referrals at this time. Referral for Financial Health Care Support: Prescriptions (Saida Mascorro; confirmed cost: $4 co-pay for new medications. Patient declined additional services. )
[2023-08-04] MEDS: Rivaroxaban 15 MG TABLET PO (15:42)
--- NOTE | 2023-08-04 16:24 | NUR.NOTE ---
Nursing Note: Pt DC home with friends via private vehicle. States pain is tolerable at this time. Pt has no further questions regarding DC instructions, follow up appointments, or new medications. Pt ambulated to main entrance and escorted by this nurse
== END 2023-08-04 16:13 | disposition home or self-care (01) ==
LOC: ER 19:32 → MS 20:59
PROVIDERS: Student in an Organized Health Care Education/Training Program; Admitting Provider Surgery; Emergency Provider Emergency Medicine; Visit Provider Surgery
DX: I80.8 Phlebitis and thrombophlebitis of other sites (principal); L02.511 Cutaneous abscess of right hand; K52.1 Toxic gastroenteritis and colitis; T36.8X5A Adverse effect of other systemic antibiotics, initial encounter; R78.81 Bacteremia; F11.20 Opioid dependence, uncomplicated; B95.4 Other streptococcus as the cause of diseases classified elsewhere; B96.3 Hemophilus influenzae [H. influenzae] as the cause of diseases classified elsewhere; L03.115 Cellulitis of right lower limb; J06.9 Acute upper respiratory infection, unspecified; F17.210 Nicotine dependence, cigarettes, uncomplicated
CPT/HCPCS: 36415; 80053; 81025; 85027; 87040; 87389; 96365; 96366; 96367; 96375; 96376; 99285; 73060; 73090; 80202; 83605; 85025; 85610; 85730; 93306; 93971; G0378; J0692; J1170; J1644; J1885; J3372

== ENCOUNTER 2024-09-29 10:52 | Emergency (ER) | payer MEDICAID, SELFPAY ==
[2024-09-29 10:54] VITALS: BP 157/93; PULSE 82; RESP 18; TEMP 36.4; O2SAT 94
--- NOTE | 2024-09-29 12:16 | W.ED.GENAD ---
Discharge Plan Disposition Patient Disposition: Home Condition: Good Discharge Details Clinical Impression: Cellulitis Primary Care Provider: Kristine Peters ED Provider: Nathalia Hilliard Home Meds and New Rx's Prescriptions: New sulfamethoxazole-trimethoprim [Bactrim DS] 800-160 mg tablet 1 tab PO BID Qty: 14 0RF cephalexin 500 mg tablet 500 mg PO QID 7 Days Qty: 28 0RF Continued rivaroxaban 20 mg tablet 20 mg PO DAILY Qty: 70 0RF Rx Instructions: must administer with evening meal methadone 10 mg/mL Concentrate 90 mg PO DAILY albuterol sulfate 90 mcg/actuation aerosol powdr breath activated 1 - 2 inh inhalation Q6H PRN (Reason: shortness of breath or wheezing) Qty: 1 0RF fluoxetine 40 mg capsule Patient Comments: TAKE 1 CAPSULE BY MOUTH DAILY FOR DEPRESSION hydroxyzine HCl 25 mg tablet Patient Comments: TAKE 1 TABLET BY MOUTH DAILY NEEDED FOR ANXIETY methylphenidate HCl 40 mg capsule,ER biphasic 50-50 PO Patient Comments: TAKE 1 CAPSULE BY MOUTH EVERY MORNING Discharge Instructions Instructions: Cellulitis (Skin Infection), Adult ED Additional Instructions: As we discussed, does appear that you have a cellulitis around the open blister from your shoes rubbing. Your exam does not suggest any bony involvement or deeper structure involvement. I have prescribed you 2 different antibiotics, Keflex and Bactrim, please take these as prescribed. Even if symptoms improve, please continue take these medications. Please wash the area with running water and soap. Then apply a dressing and Dionicio wrap to help with the swelling. Please try to elevate the extremity. Please follow-up with your primary care next week for reevaluation, call today to schedule appointment. If you develop spreading of the redness, increased pain, fever/chills or other new/worsening symptom please take care urgently once again. Referrals: Kristine Peters [Primary Care Provider, Medicine] Discharge Data Discharge Date/Time-TO BE ENTERED AT DEPARTURE: 09/29/24 13:52 HPI General Date/Time Provider Initiated Documentation: 09/29/24 11:24. Limitations to Documentation: no limitations. Information obtained by: patient and RN notes reviewed. History of Present Illness 33 year old F presents to the emergency department with the chief complaint of cellulitis left foot, described as moderate, with intensity rated at 3. Quality is described as aching, and is localized to the left and lower extremity. Patient reports no radiation. Patient started experiencing this day(s) and it has been constant. Immobilization improves symptom(s), Movement worsens symptoms . Patient notes no other symptoms.. Patient did receive the following treatments prior to arrival, none Related Data Home Medications ?Medication ?Instructions ?Recorded ?Confirmed methadone 10 mg/mL oral concentrate 90 mg PO DAILY 04/09/21 09/29/24 albuterol sulfate 90 mcg/actuation 1 - 2 inh inhalation Q6H PRN 12/29/22 09/29/24 breath activated powder inhaler shortness of breath or wheezing #1 ea rivaroxaban 20 mg tablet 20 mg PO DAILY #70 tabs 08/22/23 09/29/24 cephalexin 500 mg tablet 500 mg PO QID 7 days #28 tabs 09/29/24 fluoxetine 40 mg capsule mg 09/29/24 hydroxyzine HCl 25 mg tablet mg 09/29/24 methylphenidate HCl 40 mg biphasic mg PO 09/29/24 50-50 capsule,extended release sulfamethoxazole 800 1 tab PO BID #14 tabs 09/29/24 mg-trimethoprim 160 mg tablet (Bactrim DS) Previous Rx's ?Medication ?Instructions ?Recorded albuterol sulfate 90 mcg/actuation 1 - 2 inh inhalation Q6H PRN 12/29/22 breath activated powder inhaler shortness of breath or wheezing #1 ea rivaroxaban 20 mg tablet 20 mg PO DAILY #70 tabs 08/22/23 cephalexin 500 mg tablet 500 mg PO QID 7 days #28 tabs 09/29/24 sulfamethoxazole 800 1 tab PO BID #14 tabs 09/29/24 mg-trimethoprim 160 mg tablet (Bactrim DS) Allergies Allergy/AdvReac Type Severity Reaction Status Date / Time No Known Allergies Allergy Unverified 09/29/24 10:59 General Stated Complaint: Cellulitis VASYL: 4 Review of Systems Constitutional Constitutional: Reports as per HPI, Denies chills and Denies fever(s) Musculoskeletal Musculoskeletal: Reports as per HPI Integumentary/Breasts Skin/Breast: Reports as per HPI Neurologic Neurologic: Reports as per HPI, Denies sensory deficit and Denies paresthesias Exam Const General: cooperative, healthy appearing, comfortable, no acute distress and well developed Nutritional Appearance: average body habitus and well nourished Orientation: alert and awake Resp Effort & Inspection: normal respiratory effort, able to speak in complete sentences and no respiratory distress Cardio Rate: regular rate Rhythm: regular rhythm Skin General skin exam: erythema, no fluctuance and no hypertrophy Lesions: lesion noted (open blister at base of second toe) Neuro General: patient alert and patient awake Cognition: normal cognition Speech: speech normal Gait: normal gait Sensory Exam: no sensory deficits noted Extrem Ankle/foot/toe images:  1. Area of erythema near the skin opening at the base of the second toe. Open area 4x3 mm with no discharge, no fluctuance around the foot. 2+ distal pulses. Does not invovle the toes. Swelling noted on dorsal side of the foot. No erythmea, warmth, pain onplantar surface. No pain with movement of the toes or ankle Course Vital Signs Vital signs: Vital Signs Temperature 36.4 C 09/29/24 10:54 Pulse 82 09/29/24 10:54 Respiratory Rate 18 09/29/24 10:54 Blood Pressure 157/93 H 09/29/24 10:54 Pulse Oximetry 94 09/29/24 10:54 Temperature 36.4 C 09/29/24 10:54 Temperature Source Oral 09/29/24 10:54 Pulse 82 09/29/24 10:54 Respiratory Rate 18 09/29/24 10:54 Blood Pressure 157/93 H 09/29/24 10:54 Pulse Oximetry 94 09/29/24 10:54 Oxygen Delivery Method Room Air 09/29/24 10:54 Oxygen Flow Rate 0 09/29/24 10:54 Pain Level 3 09/29/24 10:54 Medical Decision Making Yael is a 33 year old female with 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 She states that she was wearing flip-flops, developed some blisters where they were rubbing on the dorsal aspect of her foot. Subsequently, 1 of these opened and she then developed erythema and discomfort around the 8 open blister. Open blisters at the base of the second digit. She denies injecting anything. Denies any known trauma. While she has pain at the skin, she is not having pain with movement of her toes or the foot. She has noted some swelling of the area and was concerned that the erythema has continued to swell. She denies any fevers or chills. Is otherwise systemically feeling well. Denies any . On exam, patient appears nontoxic. She is hemodynamically stable. She is ambulating well without any signs of discomfort. Patient does have a small area of opening at the base of the second digit about 4 mm in width by 3 mm in height. No significant discharge but the surrounding area is erythematous and warm. She does have some swelling. No palpable area of fluctuance or specific region of pain suggestive of an abscess. She has no pain along the plantar side and no erythema or skin breakdown. With the patient ambulating well and no pain with movement of toes/foot/ankle, I do not see suspicion at this point for osteomyelitis or deep structure involvement. Believe this truly is a cellulitis in the setting of a known blister that opened. Given the patient's history, I do feel it is appropriate to treat for MRSA, will treat with Keflex and Bactrim. I discussed this with the patient. Encourage close follow-up with primary care. Will clean the open area and dressed, followed by an Dionicio wrap to add some compression. Will give the first dose of antibiotics here, remaining will be sent to her pharmacy. Strict return precautions were discussed. All of her questions and concerns were addressed and patient is in agreement this plan. [facility] All Active Problems Cellulitis (Acute) Poor dentition (Acute) DVT of upper extremity (deep vein thrombosis) (Acute) Intravenous drug abuse (Acute) Medical History Viral URI with cough Dental infection Dental abscess Abscess of right breast Cellulitis of right breast Cellulitis and abscess of left leg Dental abscess Methadone dependence History of intravenous drug abuse Tobacco abuse Social History Smoking/Tobacco Use Status: Current every day Tobacco Type: cigarettes Smoking risk assessment performed?: Yes Alcohol Intake: current Alcohol Intake frequency: holidays/special occasions only Drug use: Current Sobriety Substance use type: opiates Details: Methadone clinic Housing: house Do you feel safe at home: Yes Do you feel safe in your relationship?: Yes Additional Social history: pt denies using street drugs since leaving the ER last sonali
[2024-09-29] MEDS: Cephalexin 500 MG CAP PO (13:49)
[2024-09-29] MEDS: Sulfameth/Trimeth DS TAB 1 TAB PO (13:49)
== END 2024-09-29 13:52 | disposition home or self-care (01) ==
PROVIDERS: Emergency Provider Physician Assistant; PCP Nurse Practitioner Family
DX: L03.116 Cellulitis of left lower limb (principal); F17.210 Nicotine dependence, cigarettes, uncomplicated
CPT/HCPCS: 99283

== ENCOUNTER 2024-12-23 10:17 | Emergency (ER) | payer MEDICAID, SELFPAY ==
[2024-12-23 10:23] VITALS: BP 131/88; PULSE 76; RESP 20; TEMP 36.6; O2SAT 98
--- NOTE | 2024-12-24 18:04 | W.ED.GENAD ---
Discharge Plan Disposition Patient Disposition: Home Condition: Stable Discharge Details Clinical Impression: Abscess of breast Primary Care Provider: Kristine Peters ED Provider: Kaye Renae Home Meds and New Rx's Prescriptions: New sulfamethoxazole-trimethoprim [Bactrim DS] 800-160 mg tablet 1 tab PO BID Qty: 20 0RF cephalexin 500 mg capsule 500 mg PO Q6H 7 Days Qty: 28 0RF Continued methadone 10 mg/mL Concentrate 110 mg PO DAILY albuterol sulfate 90 mcg/actuation aerosol powdr breath activated 1 - 2 inh inhalation Q6H PRN (Reason: shortness of breath or wheezing) Qty: 1 0RF fluoxetine 40 mg capsule 40 mg PO DAILY Patient Comments: TAKE 1 CAPSULE BY MOUTH DAILY FOR DEPRESSION hydroxyzine HCl 25 mg tablet 25 mg PO TID PRN Patient Comments: TAKE 1 TABLET BY MOUTH DAILY NEEDED FOR ANXIETY methylphenidate HCl 40 mg capsule,ER biphasic 50-50 40 mg PO DAILY Patient Comments: TAKE 1 CAPSULE BY MOUTH EVERY MORNING Discharge Instructions Instructions: Abscess Incision and Drainage ED Additional Instructions: Please follow-up with surgeon I placed you on the list for follow-up Warm compresses 10 minutes/hour You may push on the site to continue at express after warm compress Please continue taking the Bactrim and Keflex I have given you prescriptions for both Please return should you develop spreading redness, fever, worsening pain Recheck in 24 to 48 hours encourage Referrals: Josey Deal MD [ [facility] STAFF PHYSICIAN, Surgery] Discharge Data Discharge Date/Time-TO BE ENTERED AT DEPARTURE: 12/23/24 11:34 HPI General Date/Time Provider Initiated Documentation: 12/23/24 10:37. HPI Narrative: This 34-year-old female presents with left breast abscess for the past 4 days. She states she has had these recurrently in the past. She states she has a history of IV drug abuse although she has been sober for the past 3 years but still continues to acquire abscesses per patient. She states the last abscess she had drained on her right breast did not heal well and she prefers that we do not drain it today. She denies any fever or chills. She denies any chance of . She is not currently breast-feeding. She denies history of breast cancer. She has not had a mammogram in the past per patient. Related Data Home Medications ?Medication ?Instructions ?Recorded ?Confirmed methadone 10 mg/mL oral concentrate 110 mg PO DAILY 04/09/21 12/23/24 albuterol sulfate 90 mcg/actuation 1 - 2 inh inhalation Q6H PRN 12/29/22 12/23/24 breath activated powder inhaler shortness of breath or wheezing #1 ea fluoxetine 40 mg capsule 40 mg PO DAILY 09/29/24 12/23/24 hydroxyzine HCl 25 mg tablet 25 mg PO TID PRN 09/29/24 12/23/24 methylphenidate HCl 40 mg biphasic 40 mg PO DAILY 09/29/24 12/23/24 50-50 capsule,extended release cephalexin 500 mg capsule 500 mg PO Q6H 7 days #28 caps 12/23/24 sulfamethoxazole 800 1 tab PO BID #20 tabs 12/23/24 mg-trimethoprim 160 mg tablet (Bactrim DS) Previous Rx's ?Medication ?Instructions ?Recorded albuterol sulfate 90 mcg/actuation 1 - 2 inh inhalation Q6H PRN 12/29/22 breath activated powder inhaler shortness of breath or wheezing #1 ea cephalexin 500 mg capsule 500 mg PO Q6H 7 days #28 caps 12/23/24 sulfamethoxazole 800 1 tab PO BID #20 tabs 12/23/24 mg-trimethoprim 160 mg tablet (Bactrim DS) Allergies Allergy/AdvReac Type Severity Reaction Status Date / Time No Known Allergies Allergy Unverified 12/23/24 10:26 General Stated Complaint: Cellulitis VASYL: 3 Exam Narrative Exam Narrative: Patient with abscess to left breast, fluctuant, erythema surrounding, no dimpling no drainage approximately 3 inch x 3 inch area Course Vital Signs Vital signs: Vital Signs Temperature 36.6 C 12/23/24 10:23 Pulse 76 12/23/24 10:23 Respiratory Rate 20 12/23/24 10:23 Blood Pressure 131/88 12/23/24 10:23 Pulse Oximetry 98 12/23/24 10:23 Temperature 36.6 C 12/23/24 10:23 Temperature Source Tympanic 12/23/24 10:23 Pulse 76 12/23/24 10:23 Respiratory Rate 20 12/23/24 10:23 Blood Pressure 131/88 12/23/24 10:23 Blood Pressure Position Sitting 12/23/24 10:23 Pulse Oximetry 98 12/23/24 10:23 Oxygen Delivery Method Room Air 12/23/24 10:23 Oxygen Flow Rate 0 12/23/24 10:23 Pain Level 4 12/23/24 10:23 Medical Decision Making Procedure: Patient declined formal incision and drainage but was agreeable to 18-gauge needle aspiration. Wound was cleansed with chlorhexidine and an 18-gauge needle was used there is a approximately 5 cc of drainage and a dressing was placed. Patient was encouraged to use warm compresses frequently. I have written her for Keflex and Bactrim. Patient would likely benefit from a formal incision and drainage I have placed her on the list for surgical follow-up. She will also need a mammogram in the outpatient setting. PFSH All Active Problems Abscess of breast (Acute) Poor dentition (Acute) DVT of upper extremity (deep vein thrombosis) (Acute) Intravenous drug abuse (Acute) Medical History Viral URI with cough Dental infection Dental abscess Abscess of right breast Cellulitis of right breast Cellulitis and abscess of left leg Dental abscess Methadone dependence History of intravenous drug abuse Tobacco abuse Social History Smoking/Tobacco Use Status: Current every day Tobacco Type: cigarettes Smoking risk assessment performed?: Yes Alcohol Intake: current Alcohol Intake frequency: holidays/special occasions only Drug use: Current Sobriety Substance use type: opiates Details: Methadone clinic Housing: house Do you feel safe at home: Yes Do you feel safe in your relationship?: Yes
== END 2024-12-23 11:34 | disposition home or self-care (01) ==
PROVIDERS: Emergency Provider Physician Assistant; PCP Nurse Practitioner Family
DX: N61.1 Abscess of the breast and nipple (principal)
CPT/HCPCS: 99283